=== PATIENT | female | born 1950 | race Caucasian/White ===

== ENCOUNTER → 2019-01-17 21:49 | Outpatient (CLI) | payer MEDICARE, SELFPAY ==
[2019-01-10 11:03] VITALS: BMI 36.8
[2019-01-17 22:11] LABS: Absolute Neutrophil Count 2.5 X10^3/uL (2.0-7.7); Basophil# 0.05 X10^3/uL; Basophil% 1.2 % (0-1); Eosinophil# 0.23 X10^3/uL; Eosinophils% 5.7 % (0-5); Hemoglobin 13.1 g/dl (12.0-15.0); Lymphocyte % 22.2 % (19-41); Mean Corp Hgb Conc 31.2 g/gl (32-36); Mean Corpuscular Hgb 30.6 pg (27.0-32.0); Mean Corpuscular Volume 98.1 fL (81-99); Mean Platelet Vol. 10.1 fl (6.2-12.0); Monocyte# 0.41 X10^3/uL; Monocyte% 10.1 % (0-10); Neutrophil # 2.45 X10^3/uL (2.7-7.7); Neutrophil % 60.3 % (47-70); POSITIVE COUNT NO; POSITIVE DIFFERENTIAL NO; POSITIVE MORPHOLOGY NO; Platelet Count 264 K/mm3 (150-450); RBC Distribution Width SD 46.7 fl (35.1-43.9); Red Blood Count 4.28 M/mm3 (4.2-5.4); White Blood Count 4.1 K/mm3 (4.4-11.0)
[2019-01-17 22:26] LABS: ALB/GLOB Ratio 1.2 RATIO (0.9-2.4); AST(SGOT) 21 U/L (15-37); Alanine Aminotransfer ALT/SGPT 35 U/L (13-56); Albumin, Serum 4.1 g/dL (3.2-5.0); Alkaline Phosphatase 62 U/L (45-117); Anion Gap 9 (5-15); BUN 15 mg/dL (7-18); Calcium,Total 8.7 mg/dL (8.5-10.1); Chloride 104 mmol/L (98-107); Cholesterol 142 mg/dL (200); Creatinine, Serum 1.15 mg/dL (0.55-1.02); EST Glomerular Filtration Rate 50 mL/min (>60); Est Glom Filt Rate - Afr Amer 61 mL/min (>60); Ferritin 62 ng/mL (8-252); Globulin 3.5 g/dL (2.2-4.2); Glucose 91 mg/dL (74-106); High Density Lipoprotein 67 mg/dL; Iron Binding Capacity,Total 372 ug/dL (250-450); Protein, Total 7.6 g/dL (6.4-8.2); Sodium Level 139 mmol/L (136-145); Thyroid Stim Hormone (TSH) 1.99 uIU/mL (0.358-3.74); Triglycerides 151 mg/dL; Very Low Density Lipoprotein 30 mg/dL (5-40)
[2019-01-19 20:12] LABS: Vitamin D 1,25-Dihydroxy 28.1 pg/mL (19.9-79.3)
== END ==
PROVIDERS: Referring Provider Nurse Practitioner; Visit Provider Nurse Practitioner
DX: D64.9 Anemia, unspecified (principal); E78.00 Pure hypercholesterolemia, unspecified; E03.9 Hypothyroidism, unspecified; E55.9 Vitamin D deficiency, unspecified
CPT/HCPCS: 80053; 80061; 82652; 82728; 83550; 84443; 85025

== ENCOUNTER → 2019-12-31 18:41 | Outpatient (CLI) | payer MEDICARE, SELFPAY ==
[2019-12-31 12:34] VITALS: BMI 35.4
[2019-12-31 19:05] LABS: Absolute Lymphocyte Count 1.02 X10^3/uL (0.83-4.51); Absolute Neutrophil Count 2.5 X10^3/uL (2.0-7.7); Basophil# 0.06 X10^3/uL; Basophil% 1.4 % (0-1); Eosinophil# 0.24 X10^3/uL; Eosinophils% 5.6 % (0-5); Hematocrit 37.8 % (37-47); Hemoglobin 11.9 g/dL (12.0-15.0); Lymphocyte # 1.02 X10^3/ul (4.0); Lymphocyte % 23.9 % (19-41); Mean Corp Hgb Conc 31.5 g/dL (32-36); Mean Corpuscular Hgb 29.4 pg (27.0-32.0); Mean Corpuscular Volume 93.3 fL (81-99); Mean Platelet Vol. 10.2 fl (6.2-12.0); Monocyte# 0.42 X10^3/uL; Monocyte% 9.9 % (0-10); NRBC Flagged by Analyzer 0 % (0-5); Neutrophil # 2.51 X10^3/uL (2.7-7.7); Platelet Count 284 K/mm3 (150-450); RBC Distribution Width CV 12.5 % (11.6-14.6); RBC Distribution Width SD 43.1 fl (35.1-43.9); Red Blood Count 4.05 M/mm3 (4.2-5.4); White Blood Count 4.3 K/mm3 (4.4-11.0)
[2019-12-31 19:23] LABS: AST(SGOT) 16 U/L (15-37); Alanine Aminotransfer ALT/SGPT 24 U/L (13-56); Albumin, Serum 3.8 g/dL (3.2-5.0); Alkaline Phosphatase 73 U/L (45-117); Anion Gap 2 (5-15); BUN 16 mg/dL (7-18); BUN/Creat Ratio 13.9 RATIO (10-20); Calcium,Total 8.8 mg/dL (8.5-10.1); Chloride 109 mmol/L (98-107); Cholesterol 146 mg/dL (200); Creatinine, Serum 1.15 mg/dL (0.55-1.02); EST Glomerular Filtration Rate 50 mL/min (>60); Est Glom Filt Rate - Afr Amer 61 mL/min (>60); Globulin 3.7 g/dL (2.2-4.2); Glucose 95 mg/dL (74-106); High Density Lipoprotein 70 mg/dL; Potassium 4.4 mmol/L (3.5-5.1); Protein, Total 7.5 g/dL (6.4-8.2); Sodium Level 141 mmol/L (136-145); Thyroid Stim Hormone (TSH) 1.71 uIU/mL (0.358-3.74); Triglycerides 125 mg/dL; Very Low Density Lipoprotein 25 mg/dL (5-40)
== END ==
PROVIDERS: Referring Provider Nurse Practitioner; Visit Provider Nurse Practitioner
DX: I10 Essential (primary) hypertension (principal); E03.9 Hypothyroidism, unspecified; E78.00 Pure hypercholesterolemia, unspecified
CPT/HCPCS: 80053; 80061; 84443; 85025

== ENCOUNTER → 2020-12-17 | Outpatient (CLI) | payer MEDICARE, SELFPAY ==
[2020-12-04 14:01] VITALS: BMI 37.2
[2020-12-17 22:43] LABS: Absolute Lymphocyte Count 0.96 X10^3/uL (0.83-4.51); Absolute Neutrophil Count 2.8 X10^3/uL (2.0-7.7); Basophil# 0.07 X10^3/uL; Basophil% 1.6 % (0-1); Eosinophil# 0.18 X10^3/uL; Eosinophils% 4.1 % (0-5); Hematocrit 34.5 % (37-47); Hemoglobin 10.3 g/dL (12.0-15.0); Lymphocyte # 0.96 X10^3/ul (4.0); Lymphocyte % 21.7 % (19-41); Mean Corp Hgb Conc 29.9 g/dL (32-36); Mean Corpuscular Volume 80.2 fL (81-99); Mean Platelet Vol. 9.5 fl (6.2-12.0); Monocyte# 0.39 X10^3/uL; Monocyte% 8.8 % (0-10); NRBC Flagged by Analyzer 0 % (0-5); Neutrophil % 63.3 % (47-70); POSITIVE MORPHOLOGY YES; Platelet Count 406 K/mm3 (150-450); RBC Distribution Width CV 23.4 % (11.6-14.6); RBC Distribution Width SD 63.9 fl (35.1-43.9); White Blood Count 4.4 K/mm3 (4.4-11.0)
[2020-12-17 22:53] LABS: Differential Indicated SCAN CRITERIA MET
[2020-12-17 23:05] LABS: ALB/GLOB Ratio 0.9 RATIO (0.9-2.4); AST(SGOT) 18 U/L (15-37); Alanine Aminotransfer ALT/SGPT 23 U/L (13-56); Albumin, Serum 3.4 g/dL (3.2-5.0); Alkaline Phosphatase 63 U/L (45-117); Anion Gap 6 (5-15); BUN 12 mg/dL (7-18); BUN/Creat Ratio 9.9 RATIO (10-20); Calcium,Total 8.4 mg/dL (8.5-10.1); Chloride 106 mmol/L (98-107); Creatinine, Serum 1.21 mg/dL (0.55-1.02); EST Glomerular Filtration Rate 47 mL/min (>60); Est Glom Filt Rate - Afr Amer 57 mL/min (>60); Globulin 3.6 g/dL (2.2-4.2); Glucose 98 mg/dL (74-106); Sodium Level 142 mmol/L (136-145)
[2020-12-17 23:16] LABS: Differential Comment SCANNED
== END | disposition home or self-care (01) ==
PROVIDERS: PCP Nurse Practitioner; Referring Provider Nurse Practitioner; Visit Provider Nurse Practitioner
DX: D50.0 Iron deficiency anemia secondary to blood loss (chronic) (principal); D64.9 Anemia, unspecified
CPT/HCPCS: 80053; 85025

== ENCOUNTER → 2021-01-17 | Outpatient (CLI) | payer MEDICARE, SELFPAY ==
[2021-01-17 16:40] VITALS: BMI 36.8
[2021-01-17 22:03] LABS: Absolute Lymphocyte Count 0.77 X10^3/uL (0.83-4.51); Absolute Neutrophil Count 2.6 X10^3/uL (2.0-7.7); Basophil# 0.05 X10^3/uL; Basophil% 1.3 % (0-1); Eosinophil# 0.15 X10^3/uL; Eosinophils% 3.9 % (0-5); Hematocrit 37.8 % (37-47); Hemoglobin 11.3 g/dL (12.0-15.0); Lymphocyte # 0.77 X10^3/ul (4.0); Lymphocyte % 19.8 % (19-41); Mean Corp Hgb Conc 29.9 g/dL (32-36); Mean Corpuscular Hgb 25.4 pg (27.0-32.0); Mean Corpuscular Volume 84.9 fL (81-99); Mean Platelet Vol. 9.5 fl (6.2-12.0); Monocyte% 7.7 % (0-10); NRBC Flagged by Analyzer 0 % (0-5); Neutrophil # 2.61 X10^3/uL (2.7-7.7); POSITIVE MORPHOLOGY YES; Platelet Count 321 K/mm3 (150-450); RBC Distribution Width CV 23.7 % (11.6-14.6); RBC Distribution Width SD 71.7 fl (35.1-43.9); Red Blood Count 4.45 M/mm3 (4.2-5.4); White Blood Count 3.9 K/mm3 (4.4-11.0)
[2021-01-17 22:22] LABS: Differential Indicated SCAN CRITERIA MET
[2021-01-17 22:24] LABS: ALB/GLOB Ratio 1.1 RATIO (0.9-2.4); AST(SGOT) 27 U/L (15-37); Alanine Aminotransfer ALT/SGPT 31 U/L (13-56); Albumin, Serum 3.8 g/dL (3.2-5.0); Alkaline Phosphatase 66 U/L (45-117); Anion Gap 6 (5-15); BUN 12 mg/dL (7-18); BUN/Creat Ratio 10.3 RATIO (10-20); Calcium,Total 8.2 mg/dL (8.5-10.1); Chloride 108 mmol/L (98-107); Cholesterol 148 mg/dL (200); Creatinine, Serum 1.17 mg/dL (0.55-1.02); EST Glomerular Filtration Rate 49 mL/min (>60); Est Glom Filt Rate - Afr Amer 59 mL/min (>60); Ferritin 14 ng/mL (8-252); Globulin 3.5 g/dL (2.2-4.2); Glucose 126 mg/dL (74-106); High Density Lipoprotein 64 mg/dL; Iron Binding Capacity,Total 401 ug/dL (250-450); Potassium 3.8 mmol/L (3.5-5.1); Protein, Total 7.3 g/dL (6.4-8.2); Sodium Level 143 mmol/L (136-145); Thyroid Stim Hormone (TSH) 3.11 uIU/mL (0.358-3.74); Triglycerides 381 mg/dL; Very Low Density Lipoprotein 76 mg/dL (5-40)
[2021-01-17 22:32] LABS: Anisocytosis 2+
[2021-01-19 13:16] LABS: Transferrin 300 mg/dL (192-364)
== END | disposition home or self-care (01) ==
PROVIDERS: Visit Provider Nurse Practitioner
DX: I10 Essential (primary) hypertension (principal); D64.9 Anemia, unspecified; E78.00 Pure hypercholesterolemia, unspecified; E03.9 Hypothyroidism, unspecified
CPT/HCPCS: 80053; 80061; 82728; 83550; 84443; 84466; 85025

== ENCOUNTER → 2021-04-25 | Outpatient (CLI) | payer MEDICARE, SELFPAY ==
[2021-04-25 15:11] VITALS: BMI 36.8
[2021-04-25 21:27] LABS: Absolute Lymphocyte Count 0.93 X10^3/uL (0.83-4.51); Absolute Neutrophil Count 3.1 X10^3/uL (2.0-7.7); Basophil# 0.07 X10^3/uL; Basophil% 1.4 % (0-1); Eosinophils% 4.1 % (0-5); Hematocrit 38.4 % (37-47); Hemoglobin 12.7 g/dL (12.0-15.0); Lymphocyte # 0.93 X10^3/ul (0.83-4.51); Lymphocyte % 19.1 % (19-41); Mean Corp Hgb Conc 33.1 g/dL (32-36); Mean Corpuscular Hgb 30.6 pg (27.0-32.0); Mean Corpuscular Volume 92.5 fL (81-99); Mean Platelet Vol. 9.5 fl (6.2-12.0); Monocyte# 0.52 X10^3/uL; Monocyte% 10.7 % (0-10); NRBC Flagged by Analyzer 0 % (0-5); Neutrophil # 3.13 X10^3/uL (2.7-7.7); Neutrophil % 64.5 % (47-70); Platelet Count 287 K/mm3 (150-450); RBC Distribution Width CV 13.3 % (11.6-14.6); RBC Distribution Width SD 44.9 fl (35.1-43.9); Red Blood Count 4.15 M/mm3 (4.2-5.4); White Blood Count 4.9 K/mm3 (4.4-11.0)
[2021-04-25 21:50] LABS: Cholesterol 146 mg/dL (200); High Density Lipoprotein 48 mg/dL; Thyroid Stim Hormone (TSH) 2.85 uIU/mL (0.358-3.74); Triglycerides 350 mg/dL; Very Low Density Lipoprotein 70 mg/dL (5-40)
[2021-04-25 22:11] LABS: Hemoglobin A1c 5.6 % (3.8-5.6)
== END | disposition home or self-care (01) ==
PROVIDERS: Referring Provider Nurse Practitioner; Visit Provider Nurse Practitioner
DX: E78.1 Pure hyperglyceridemia (principal); D50.0 Iron deficiency anemia secondary to blood loss (chronic); E03.9 Hypothyroidism, unspecified; R73.9 Hyperglycemia, unspecified
CPT/HCPCS: 80061; 83036; 84443; 85025

== ENCOUNTER → 2021-07-30 | Outpatient (CLI) | payer MEDICARE, SELFPAY ==
[2021-07-30 22:10] LABS: Absolute Lymphocyte Count 1.21 X10^3/uL (0.83-4.51); Absolute Neutrophil Count 4.6 X10^3/uL (2.0-7.7); Basophil# 0.05 X10^3/uL; Basophil% 0.8 % (0-1); Eosinophil# 0.12 X10^3/uL; Eosinophils% 1.8 % (0-5); Hematocrit 40.9 % (37-47); Hemoglobin 13.2 g/dL (12.0-15.0); Lymphocyte # 1.21 X10^3/ul (0.83-4.51); Lymphocyte % 18.5 % (19-41); Mean Corp Hgb Conc 32.3 g/dL (32-36); Mean Corpuscular Hgb 30.3 pg (27.0-32.0); Mean Platelet Vol. 9.7 fl (6.2-12.0); Monocyte# 0.52 X10^3/uL; NRBC Flagged by Analyzer 0 % (0-5); Neutrophil # 4.62 X10^3/uL (2.7-7.7); Neutrophil % 70.6 % (47-70); Platelet Count 316 K/mm3 (150-450); RBC Distribution Width CV 12.5 % (11.6-14.6); RBC Distribution Width SD 43.5 fl (35.1-43.9); Red Blood Count 4.35 M/mm3 (4.2-5.4); White Blood Count 6.5 K/mm3 (4.4-11.0)
[2021-07-30 22:22] LABS: Anion Gap 7 (5-15); BUN 20 mg/dL (7-18); Calcium,Total 9.1 mg/dL (8.5-10.1); Chloride 104 mmol/L (98-107); Creatinine, Serum 1.43 mg/dL (0.55-1.02); EST Glomerular Filtration Rate 39 mL/min (>60); Est Glom Filt Rate - Afr Amer 47 mL/min (>60); Glucose 102 mg/dL (74-106); Potassium 3.5 mmol/L (3.5-5.1); Sodium Level 139 mmol/L (136-145)
== END | disposition home or self-care (01) ==
PROVIDERS: Referring Provider Nurse Practitioner; Visit Provider Nurse Practitioner
DX: R59.0 Localized enlarged lymph nodes (principal); R91.8 Other nonspecific abnormal finding of lung field
CPT/HCPCS: 80048; 85025

== ENCOUNTER 2021-12-03 21:57 | Outpatient (CLI) | payer MEDICARE, SELFPAY ==
[2021-12-03 22:09] LABS: Absolute Lymphocyte Count 1.31 X10^3/uL (0.83-4.51); Absolute Neutrophil Count 4.7 X10^3/uL (2.0-7.7); Basophil# 0.07 X10^3/uL; Eosinophil# 0.23 X10^3/uL; Eosinophils% 3.3 % (0-5); Hematocrit 40.3 % (37-47); Hemoglobin 13.2 g/dL (12.0-15.0); Lymphocyte # 1.31 X10^3/ul (0.83-4.51); Lymphocyte % 18.7 % (19-41); Mean Corp Hgb Conc 32.8 g/dL (32-36); Mean Corpuscular Hgb 30.8 pg (27.0-32.0); Mean Corpuscular Volume 93.9 fL (81-99); Mean Platelet Vol. 9.2 fl (6.2-12.0); Monocyte# 0.62 X10^3/uL; Monocyte% 8.9 % (0-10); NRBC Flagged by Analyzer 0 % (0-5); Neutrophil # 4.74 X10^3/uL (2.7-7.7); Neutrophil % 67.8 % (47-70); Platelet Count 335 K/mm3 (150-450); RBC Distribution Width CV 12.6 % (11.6-14.6); Red Blood Count 4.29 M/mm3 (4.2-5.4)
[2021-12-03 22:50] LABS: ALB/GLOB Ratio 1.1 RATIO (0.9-2.4); AST(SGOT) 20 U/L (15-37); Alanine Aminotransfer ALT/SGPT 38 U/L (13-56); Albumin, Serum 3.9 g/dL (3.2-5.0); Alkaline Phosphatase 71 U/L (45-117); Anion Gap 5 (5-15); BUN 13 mg/dL (7-18); BUN/Creat Ratio 11.9 RATIO (10-20); Calcium,Total 8.7 mg/dL (8.5-10.1); Chloride 103 mmol/L (98-107); Cholesterol 159 mg/dL (200); Creatinine, Serum 1.09 mg/dL (0.55-1.02); EST Glomerular Filtration Rate 53 mL/min (>60); Est Glom Filt Rate - Afr Amer 64 mL/min (>60); Globulin 3.7 g/dL (2.2-4.2); Glucose 104 mg/dL (74-106); High Density Lipoprotein 56 mg/dL; Potassium 3.9 mmol/L (3.5-5.1); Protein, Total 7.6 g/dL (6.4-8.2); Sodium Level 139 mmol/L (136-145); Thyroid Stim Hormone (TSH) 2.29 uIU/mL (0.358-3.74); Triglycerides 164 mg/dL; Very Low Density Lipoprotein 33 mg/dL (5-40)
== END 2021-12-03 23:59 | disposition short-term general hospital (02) ==
PROVIDERS: Visit Provider Nurse Practitioner
DX: D50.9 Iron deficiency anemia, unspecified (principal); K21.00 Gastro-esophageal reflux disease with esophagitis, without bleeding; E78.00 Pure hypercholesterolemia, unspecified; E03.9 Hypothyroidism, unspecified
CPT/HCPCS: 80053; 80061; 84443; 85025

== ENCOUNTER → 2022-11-26 | Outpatient (CLI) | payer MEDICARE, SELFPAY ==
[2022-11-26 22:22] LABS: Absolute Lymphocyte Count 1.17 X10^3/uL (0.83-4.51); Absolute Neutrophil Count 2.7 X10^3/uL (2.0-7.7); Basophil# 0.06 X10^3/uL; Basophil% 1.3 % (0-1); Eosinophils% 4.3 % (0-5); Hematocrit 39.2 % (37-47); Lymphocyte # 1.17 X10^3/ul (0.83-4.51); Lymphocyte % 25.3 % (19-41); Mean Corp Hgb Conc 33.2 g/dL (32-36); Mean Corpuscular Hgb 31.2 pg (27.0-32.0); Mean Platelet Vol. 9.7 fl (6.2-12.0); Monocyte# 0.44 X10^3/uL; Monocyte% 9.5 % (0-10); NRBC Flagged by Analyzer 0.6 % (0-5); Neutrophil # 2.74 X10^3/uL (2.7-7.7); Neutrophil % 59.4 % (47-70); Platelet Count 280 K/mm3 (150-450); RBC Distribution Width CV 12.8 % (11.6-14.6); Red Blood Count 4.17 M/mm3 (4.2-5.4); White Blood Count 4.6 K/mm3 (4.4-11.0)
[2022-11-26 22:46] LABS: ALB/GLOB Ratio 1.2 RATIO (0.9-2.4); AST(SGOT) 21 U/L (15-37); Alanine Aminotransfer ALT/SGPT 40 U/L (13-56); Albumin, Serum 3.8 g/dL (3.2-5.0); Alkaline Phosphatase 65 U/L (45-117); Anion Gap 6 (5-15); BUN 14 mg/dL (7-18); BUN/Creat Ratio 13.9 RATIO (10-20); Calcium,Total 8.7 mg/dL (8.5-10.1); Chloride 108 mmol/L (98-107); Cholesterol 153 mg/dL (200); Creatinine, Serum 1.01 mg/dL (0.55-1.02); EST Glomerular Filtration Rate 58 mL/min (>60); Est Glom Filt Rate - Afr Amer 70 mL/min (>60); Globulin 3.3 g/dL (2.2-4.2); Glucose 127 mg/dL (74-106); High Density Lipoprotein 57 mg/dL; Potassium 3.9 mmol/L (3.5-5.1); Protein, Total 7.1 g/dL (6.4-8.2); Sodium Level 142 mmol/L (136-145); Thyroid Stim Hormone (TSH) 3.37 uIU/mL (0.358-3.74); Triglycerides 223 mg/dL; Very Low Density Lipoprotein 45 mg/dL (5-40)
== END | disposition home or self-care (01) ==
PROVIDERS: Referring Provider Nurse Practitioner; Visit Provider Nurse Practitioner
DX: I10 Essential (primary) hypertension (principal); D64.9 Anemia, unspecified; E78.1 Pure hyperglyceridemia; K21.9 Gastro-esophageal reflux disease without esophagitis; E03.9 Hypothyroidism, unspecified; R59.0 Localized enlarged lymph nodes
CPT/HCPCS: 80053; 80061; 84443; 85025

== ENCOUNTER → 2023-01-16 | Outpatient (CLI) | payer MEDICARE, SELFPAY ==
[2023-01-16 22:51] LABS: Thyroid Stim Hormone (TSH) 7.39 uIU/mL (0.358-3.74)
== END | disposition home or self-care (01) ==
PROVIDERS: Visit Provider Nurse Practitioner
DX: I10 Essential (primary) hypertension (principal)
CPT/HCPCS: 84443

== ENCOUNTER → 2023-04-09 | Outpatient (CLI) | payer MEDICARE, SELFPAY ==
[2023-04-09 22:01] LABS: Thyroid Stim Hormone (TSH) 4.57 uIU/mL (0.358-3.74)
== END | disposition home or self-care (01) ==
PROVIDERS: Visit Provider Nurse Practitioner
DX: E03.9 Hypothyroidism, unspecified (principal)
CPT/HCPCS: 84443

== ENCOUNTER → 2023-05-11 | Outpatient (CLI) | payer MEDICARE, SELFPAY ==
[2023-05-11 21:44] LABS: Thyroid Stim Hormone (TSH) 1.48 uIU/mL (0.358-3.74)
== END | disposition home or self-care (01) ==
PROVIDERS: Visit Provider Nurse Practitioner
DX: E03.9 Hypothyroidism, unspecified (principal)
CPT/HCPCS: 84443

== ENCOUNTER → 2023-11-23 | Outpatient (CLI) | payer MEDICARE, SELFPAY ==
--- OUTSIDE RECORDS SUMMARY | 2023-11-23 22:01 | XMS RPT_ITS | CCD ---
Author Name Unknown Address [address] [place] [address] Organization [facility] Care Team Providers Care [employer] Developer Name Role Phone Skinny Russell Primary Care Provider [phone] PROVIDER, UNKNOWN Referring Unavailable Lazarus Tang Attending Unavailable Drew, Skinny Primary Care Unavailable PROVIDER, UNKNOWN Referring Unavailable TYLOR OBANDO Attending Unavailable Drew, Skinny Primary Care Unavailable PROVIDER, UNKNOWN Referring Unavailable UNASSIGNED, UNASSIGNED Attending Unavailab le Drew Skinny Primary Care Unavailable Drew, Skinny Primary Care Unavailable PROVIDER, UNKNOWN Referring Unavailable Lazarus Tang Attending Unavailable Drew, Skinny Primary Care Unavailable PROVIDER, UNKNOWN Referring Unavailable Lazarus Tang Attending Unavailable Drew STOVE REFINISHER.ASSEMBLY LINE BRAZER, Skinny L Primary Care Provide r Laurel Mora Unavailable Skinny Russell Primary Care Provider Lazarus Banerjee MD Unavailable Lazarus Banerjee MD Unavailable LAZARUS BANERJEE Attending Unavailable LAZARUS BANERJEE Referring Unavailable DREW, SKINNY Primary Care Unavailable SKINNY RUSSELL Attending Unavailable LAZARUS BANERJEE Referring Unavailable RUSSELL, SKINNY Primary Care Unavailable LAZARUS BANERJEE Attending Unavailable DREW SKINNY Primary Care Unavailable Allergies Allergy Classification Reported Allergen(s) Allergy Type Date of Onset Reaction(s) Facility (4 sources) Penicillins Propensity to adverse reactions to drug 6 [place], [place] (4 sources) Simvastatin Drug Allergy 7 [place] (4 sources) Sulfonamides (Antibiotic) Propensity to adverse reactions to drug 6 [place] (1 source) HMG-CoA reductase inhibitor Propensity to adverse reactions to drug 8 Unknown [facility] Work Phone: (1 source) Penicillins Propensity to adverse reactions to drug 8 Unknown [facility] Work Phone: (5 sources) Sulfonamides (Antibiotic) Propensity to adverse reactions to drug 6 Unknown [facility] Work Phone: (4 sources) HMG-CoA reductase inhibitor Drug Intolerance 2 [facility] (4 sources) Penicillins Drug Intolerance 6 [facility] Medications Current Medications Medication Drug Class(es) Dates Sig (Normalized) Sig (Original) aspirin 81 mg oral tablet (2 sources) Platelet Aggregation Inhibitor, Nonsteroidal Anti-inflammatory Drug take 1 tablet by mouth once daily aspirin 81 MG tablet Take 81 mg by mouth daily 0 Active atorvastatin 10 mg oral tablet (9 sources) HMG-CoA Reductase Inhibitor Start: 08-21-2023 take 1 tablet by mouth once daily atorvastatin (Lipitor) 10 MG tablet Take 10 mg by mouth daily. 0 08/21/2023 Active Completed/Discontinued Medications Medication Drug Class(es) Dates Sig (Normalized) Sig (Original) iron,carb/vit C/vit B12/folic (IRON 100 PLUS ORAL) (1 source) iron,carb/vit C/ vit B12/folic (IRON 100 PLUS ORAL) Take by mouth. 0 Active Problems Active Problems Problem Classification Problem Date Documented Date Episodic/Chronic Abdominal hernia (2 sources) Diaphragmatic hernia without obstruction or gangrene; Translations: [Diaphragmatic hernia without obstruction or gangrene] Onset: 07-25-2022 Episodic Cancer of cervix (13 sources) Malignant tumor of cervix; Translations: [Malignant neoplasm of cervix uteri, unspecified] Onset: 01-30-2016 01-30-2016 Chronic Cancer of cervix (5 sources) History of malignant neoplasm of cervix; Translations: [Personal history of malignant neoplasm of cervix uteri] Onset: 09-09-2023 08-27-2023 Episodic Other lower respiratory disease (5 sources) Nodule of lung; Translations: [Solitary pulmonary nodule] Episodic Other lower respiratory disease (4 sources) Solitary pulmonary nodule; Translations: [Solitary pulmonary nodule] Onset: 07-25-2022 Episodic Other lower respiratory disease (2 sources) Multiple nodules of lung; Translations: [Other nonspecific abnormal finding of lung field] Onset: 11-18-2022 Episodic Other screening for suspected conditions (not mental disorders or infectious disease) (2 sources) Abnormal findings on diagnostic imaging of other specified body structures; Translations: [Abnormal findings on dx imaging of oth body structures] Onset: 09-13-2021 Chronic Residual codes; unclassified (2 sources) Personal history of irradiation; Translations: [Personal history of irradiation] Onset: 08-27-2023 Episodic Substance-related disorders (5 sources) Tobacco dependence in remission; Translations: [Nicotine dependence, cigarettes, in remission] Onset: 09-09-2023 08-27-2023 Chronic Past or Other Problems Problem Classification Problem Date Documented Da te Episodic/Chronic Blindness and vision defects (1 source) Presbyopia; Translations: [Presbyopia] Onset: 06-08-2018 06-08-2018 Episodic Deficiency and other anemia (1 source) Anemia; Translations: [Anemia, unspecified] Onset: 12-01-2020 12-03-2020 Episodic Other connective tissue disease (1 source) Muscle pain; Translations: [Myalgia, unspecified site] Onset: 12-01-2020 12-01-2020 Episodic Other diseases of kidney and ureters (1 source) Acute renal insufficiency; Translations: [Disorder of kidney and ureter, unspecified] Onset: 12-01-2020 12-01-2020 Episodic Other lower respiratory disease (1 source) Dyspnea on exertion; Translations: [Other forms of dyspnea] Onset: 12-01-2020 12-01-2020 Episodic Other screening for suspected conditions (not mental disorders or infectious disease) (7 sources) Encounter for screening mammogram for malignant neoplasm of breast; Translations: [D-dimer above reference range] Onset: 12-01-2020 Episodic Results Test Name Value Interpretation Reference Range Facil ity Vital Signs Date Time Vital Sign Value Performing Clinician Faci eliezer 08-27-2023 11:41-0400 Body height 152.4 cm Lazarus Banerjee MD Work Phone: [facility] 08-27-2023 11:41-0400 Body mass index (BMI) [Ratio] 39.65 kg/m2 Lazarus Banerjee MD Work Phone: [facility] 08-27-2023 11:41-0400 Body weight 92.08 kg Lazarus Banerjee MD Work Phone: [facility] 08-27-2023 11:41-0400 Diastolic blood pressure 84 mm[Hg] Lazarus Banerjee MD Work Phone: [facility] 08-27-2023 11:41-0400 Systolic blood pressure 138 mm[Hg] Lazarus Banerjee MD Work Phone: [facility] 05-22-2023 11:42-0400 Body height 152.4 cm Skinny Russell Work Phone: [facility] 05-22-2023 11:42-0400 Body mass index (BMI) [Ratio] 36.91 kg/m2 Skinny Russell Work Phone: [facility] 05-22-2023 11:42-0400 Body weight 85.73 kg Skinny Russell Work Phone: [facility] Encounters Encounter Date Encounter Type Care Provider Facility Start: 09-09-2023 End: 09-10-2023 ambulatory LAZARUS BANERJEE [facility] Start: 09-09-2023 End: 09-09-2023 Subsequent hospital visit by physician Lazarus Banerjee MD Work Phone: [facility] Procedures Date Procedure Procedure Detail Performing Clinician Start: 05-22-2023 End: 05-22-2023 Screening digital breast tomosynthesis bi Lazarus Banerjee MD Work Phone: Start: 04-18-2022 Screening digital br east tomosynthesis bi Lazarus Banerjee MD Work Phone: Start: 11-30-2020 Antibody screen Plan of Treatment Date Care Activity Detail Author Start: 04-07-2028 DTaP/Tdap/Td vaccine (2 - Tdap) DTaP/Tdap/Td vaccine (2 - Tdap) [facility] Start: 04-07-2028 DTaP/Tdap/Td Vaccine s (3 - Td or Tdap) DTaP/Tdap/Td Vaccines (3 - Td or Tdap) [facility] Start: 09-08-2024 End: 09-08-2024 Patient encounter procedure 09/08/2024 10:40 AM EDT Office Visit [facility] Gynecologic Oncology [address] [place] [id number] Lazarus Banerjee MD [address] [place] [address] [facility]nec[facility] Start: 05-22-2024 Screening for malignant neoplasm of breast Mammogram [facility] Start: 04-18-2024 Screening for malignant neoplasm of breast Breast cancer screen [facility] Start: 12-03-2023 DIABETES SCREEN DIABETES SCREEN [facility] Start: 09-09-2023 End: 09-09-2023 Patient encounter procedure 09/09/2023 1:00 PM EDT Appointment [facility] [facility] [address] [place] [address] Lazarus Banerjee MD [address] [place], [place] [id number] [facility] [address] Start: 08-27-2023 End: 08-27-2024 CT Chest for screening WO contrast CT lung screening low dose Imaging Routine History of cervical cancer Lung nodule Nicotine dependence, cigarettes, in remission Expected: 08/27/2023, Expires: 08/27/2024 [facility] Work Phone: Immunizations Immunization Date Immunization Notes Care Provider Fa [facility] 07-29-2022 influenza virus vaccine, unspecified formulation Skinny Russell Work Phone: [facility] 03-06-2022 Covid-19, Pfizer Gra y Top, Do Not Dilute, (Age 12 Y+), Im, L Skinny Russell Work Phone: [facility] 08-27-2021 Pfizer SARS-CoV-2 Vaccination Skinny Russell Work Phone: [facility] 02-19-2021 COVID-19 original vaccine, age 12+ yr, monovalent (PFIZER-BIONTECH - PURPLE TOP) Nohemi Martinez STOVE REFINISHER.ASSEMBLY LINE BRAZER Work Phone: [facility] 01-29-2021 COVID-19 original vaccine, age 12+ yr, monovalent (PFIZER-BIONTECH - PURPLE TOP) Nohemi Martinez APRN.ASSEMBLY LINE BRAZER Work Phone: [facility] Payers Date Payer Category Payer Medicare [id number] 2017 Medicare [facility]MEDICARE ADVANTAGE xxxxxxxxxxx 2017-Present [phone] [address] [place] [address] xxxxxxxxxxx [id number] 2017 Medicare [id number] 1950 Unknown [id number] 1950 Unknown [id number] 1950 Unknown [id number] 1950 Unknown [id number] 1950 Unknown [id number] Unknown Social History Date Type Detail Facility Start: 01-30-2016 End: 04-28-2019 Tobacco smoking status NHIS Never smoker [facility] [place] Start: 04-28-2019 End: 08-27-2023 [facility] intake [facility] Start: 10-21-2017 Alcohol Comment 1-2 a week [facility] Start: 1950 Sex Assigned At Not on file M [facility] Start: 07-19-2020 End: 05-22-2023 Tobacco use and exposure Never used [facility] Start: 07-19-2020 End: 08-27-2023 Alcohol intake Current drinker of alcohol (finding) Ary [facility] Start: 07-25-2021 End: 08-27-2023 Alcohol intake [facility] Work Phone: Start: 07-07-2022 End: 05-22-2023 Exposure to SARS-CoV-2 (event) Not sure [facility] Start: 12-01-2020 End: 05-22-2023 Tobacco smoking status NHIS Ex-smoker [facility] Work Phone: End: 11-16-1986 History of tobacco use Current smoker [facility] Work Phone: End: 11-16-1986 History of tobacco use Cigarette Smoker [facility] Work Phone: Start: 12-01-2020 Tobacco Comment quit [address] [place] [address] Start: 12-01-2020 Alcohol Comment social [facility] Clinical Notes 11-18-2022 to 08-28-2023 Telephone Encounter - Verna Kang - 08/28/2023 2:24 PM EDTTelephone Encounter - Vrena Kang - 08/28/2023 2:24 PM EDTRwarren Banerjee MD - 08/27/2023 11:40 AM EDT Note Date & Type Note Facility 08-28-2023 Telephone encounter Note Called patient to see dates/times/location work best for her for ct scan. Left message to call office. [facility] 08-28-2023 Miscellaneous Notes Called patient to see dates/times/location work best for her for ct scan. Left message to call office. documented in this encounter [facility] 08-27-2023 History of Presen t illness Narrative Chief Complaint Patient presents with Other History of cervical cancer - annual examination HISTORY OF THE PRESENT ILLNESS: Shine Min is a 72 y.o. female who presents for evaluation and management of the above. IB1 SCCA G2 cervical cancer, Radical Hyst BSO by Jose Guadalupe 03/2014; adj XRT RTOG #1203/IMRT Path - 3 cm, depth invasion 11 mm, LVS equiv (present on cone), 20 nodes (-) Finished treatment June of 2014. Denies any toxicities from the treatment other than lymphedema. She has been seen in the lymphedema clinic and wears support stockings. In January 2017 she reported new onset of vaginal bleeding and back pain. CT abdomen and pelvis IMPRESSION: 1. No evidence of recurrent malignancy. 2. Stable hepatic cysts. 3. Moderate-sized hiatal hernia. CXR [facility] in 2020- That showed a pulmonary nodule. On 08/23/21 CT of chest showed: IMPRESSION: 1. Pulmonary nodule in the inferolateral aspect of the left upper lobe has demonstrated interval increase in size compared to 2015. Based on the 202 ACR white paper on managing incidental findings on thoracic CT, consider follow-up low-dose CT of the chest at three months or PET/CT and/or tissue sampling. 2. Moderate-sized hiatal hernia. Follow-up PET on 09/16/21 Showed: IMPRESSION: Streaky noncalcified nodule within the left upper lobe noted on the prior CT of the chest demonstrates minimal FDG uptake, most consistent with a benign etiology. Routine CT follow-up is recommended to ensure stability. CT chest 07/2022: IMPRESSION: 1. Unchanged 1.1 cm nodule left upper lobe unchanged from prior CT chest. This demonstrated minimal FDG uptake on PET CT suggesting benignity. 2. No new suspicious pulmonary nodules. ASSESSMENT CATEGORY (version 1.1 - 2019): Lung-RADS Assessment Category 2 - Benign appearance or behavior. Recommend continued annual low-dose screening CT in 12 months.. Pap smear 07/2022 - NILM, HR HPV negative Interval History: The patient presents to the office today for routine surveillance of disease. Doing well since her last visit. Denies chest pain, shortness of breath. Denies abdominal pain, nausea, vomiting, changes in weight. Denies pelvic pain, vaginal bleeding, vaginal discharge. She has not been using her vaginal dilator as often. Does have some vaginal dryness. No vaginal bleeding after dilator or intercourse. Now she has 4 grandchildren! Shine does watch once of her grandsons in [place]. Retired. Doing well! Past Medical History: Diagnosis Date Acid reflux disease with ulcer Anemia Arthritis Cervical cancer (CMS/HCC) (HCC) 2013 H/O: hysterectomy Hiatal hernia HTN (hypertension) Hypothyroid Lymphedema Personal history of irradiation Past Surgical History: Procedure Laterality Date SECTION, LOW TRANSVERSE x2 DILATION AND CURETTAGE OF UTERUS 1985 OOPHORECTOMY Bilateral 2013 TONSILLECTOMY (HISTORICAL) child dutta TOTAL ABDOMINAL HYSTERECTOMY N/A 2013 robotic radical hysterectomy Social History Tobacco Use Smoking status: Former Types: Cigarettes Quit date: 11/16/1986 Years since quittin.8 Smokeless tobacco: Never Substance Use Topics Alcohol use: Yes Alcohol/week: 1.0 standard drink of alcohol Drug use: No Family History Problem Relation Name Age of Onset Lung cancer Father 61 Cervical cancer Maternal Grandmother 51 Pancreatic cancer Father's Sister 65 Lung cancer Father's Brother 65 Breast cancer Neg Hx Ovarian cancer Neg Hx Colon cancer Neg Hx Uterine cancer Neg Hx Current Outpatient Medications on File Prior to Visit Medication Sig Dispense Refill atorvastatin (Lipitor) 10 MG tablet Take 10 mg by mouth daily. ferrous fumarate-vitamin C ER (Seymour-Sequeles 65-25) Take 1 tablet by mouth in the morning and 1 tablet at noon and 1 tablet in the evening. Take with meals. Do not crush, chew, or split.. levothyroxine (Tirosint) 137 MCG capsule Take by mouth every morning (before breakfast). losartan (Cozaar) 100 MG tablet Take 100 mg by mouth daily. Multiple Vitamins-Minerals (multivitamin with minerals) tablet Take 1 tablet by mouth daily. pantoprazole (ProtoNix) 40 MG EC tablet Take 40 mg by mouth every morning (before breakfast). Do not crush, chew, or split. simvastatin (Zocor) 10 MG tablet Take 10 mg by mouth Nightly. No current facility-administered medications on file prior to visit. Allergies as of 08/27/2023 - Reviewed 08/27/2023 Allergen Reaction Noted Penicillins 01/30/2016 Statins 09/24/2022 Sulfa antibiotics 01/30/2016 REVIEW OF SYSTEMS: A 12 point review of systems was performed and is as per the history of the present illness, all other systems were reviewed and are negative. Vitals: 08/27/23 1141 BP: 138/84 Body mass index is 39.65 kg/m . Physical Exam Constitutional: Appearance: Normal appearance. Pulmonary: Effort: Pulmonary effort is normal. Abdominal: General: Abdomen is flat. Palpations: Abdomen is soft. Comments: Well-healed robotic incisions without nodules Genitourinary: General: Normal vulva. Comments: Uterus/cervix/bilateral adnexa are surgically absent. There were no adnexal masses appreciated, no vaginal cuff or cul-de-sac nodularity. No lesions visualized or palpated in the vagina. The vagina is narrowed as a result of radiation. Some mild radiation changes are noted involving the mucosa. No active bleeding. Musculoskeletal: General: Normal range of motion. Lymphadenopathy: Cervical: Right cervical: No superficial cervical adenopathy. Left cervical: No superficial cervical adenopathy. Upper Body: Right upper body: No supraclavicular adenopathy. Left upper body: No supraclavicular adenopathy. Skin: General: Skin is warm and dry. Neurological: General: No focal deficit present. Mental Status: She is alert and oriented to person, place, and time. ASSESSMENT/PLAN: Diagnosis Plan 1. History of cervical cancer CT lung screening low dose Pap Smear 2. S/P radiation therapy Pap Smear 3. Lung nodule CT lung screening low dose 4. Nicotine dependence, cigarettes, in remission CT lung screening low dose Shine Min is a 72 y.o. 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 Currently, doing well, without evidence of recurrent disease. ECOG performance status of 0. Pap smear obtained, follow up on results and treat as indicated. The signs and symptoms of recurrence were reviewed and the patient will contact our office in the interim should any of these arise. Follow up in 1 year for annual exam. Pulmonary nodule-repeat low-dose CT scan of the chest was recommended by radiology. Patient is due for that imaging. Disclaimer: This note was dictated by speech recognition. I apologize for minor errors in grocery sacker which may be present. documented in this encounter [facility] 11-18-2022 Note Patient Outreach (PU LMWH) SHINE MIN ([id number]) 1950 F Date Time Provider Department 11/18/22 NOHEMI MARTINEZ During your visit today, we recorded the following information about you: Nohemi Martinez APRN.ASSEMBLY LINE BRAZER 11/18/2022 11:13 AM Signed Incidental Lung Nodule Enrollment Call attempt: 1st Attempt Enrolled in Lung Nodule program: No Declined reason: Patient already followed by another non-[facility] provider for incidental lung nodule(s). Lung Nodule Program Location: [facility]. Nohemi Martinez NP Allergies As of Date: 11/18/2022 Noted Allergy Reaction PENICILLINS 06/08/2018 16 - Unknown [id number] REDUCTASE INHIBIT*06/08/2018 16 - Unknown SULFA (SULFONAMIDE ANTIBIOTICS) 06/08/2018 16 - Unknown Date Reviewed: 12/03/2020 Reviewed by: Lissette (Rn) CAMERON Bates - Fully Assessed Primary Visit Diagnosis:Lung nodules [R91.8] Prescriptions as of 11/18/2022 - pantoprazole DR (PROTONIX) 40 mg tablet Take 1 tablet by mouth DAILY (6 AM). - levothyroxine sodium (LEVOTHYROXINE ORAL) Take by mouth. - lisinopril-hydrochlorothiazide (PRINZIDE,ZESTORETIC) 20-12.5 mg per tablet Take 1 tablet by mouth once daily. - ezetimibe (ZETIA ORAL) Take by mouth. - atorvastatin calcium (ATORVASTATIN ORAL) Take by mouth. - iron,carb/vit C/vit B12/folic (IRON 100 PLUS ORAL) Take by mouth. - niacin ER (NIASPAN) 500 mg tablet Take 500 mg by mouth twice daily with meals. Problem List As Of Date 11/18/2022 Noted Resolved Presbyopia [H52.4] 06/08/2018 Symptomatic anemia [D64.9] 12/01/2020 Acute renal insufficiency [N28.9] 12/01/2020 Myalgias [M79.10] 12/01/2020 Exertional dyspnea [R06.09] 12/01/2020 Elevated d-dimer [R79.89] 12/01/2020 Lung nodules [R91.8] 11/18/2022 Encounter Status:Closed by NOHEMI MARTINEZ on 11/18/22 [facility] 11-18-2022 Note HNO ID: [id number] Author: Nohemi Martinez APRN.[employer]SEM[employer] Service: ? Author Type: Nurse Practitioner Type: Progress Notes Filed: 11/18/2022 11:13 AM Note Text: Incidental Lung Nodule Enrollment Call attempt: 1st Attempt Enrolled in Lung Nodule program: No Declined reason: Patient already followed by another non-[facility] provider for incidental lung nodule(s). Lung Nodule Program Location: [facility]. Nohemi Martinez NP [facility] 11-18-2022 History of Presen t illness Narrative Incidental Lung Nodule Enrollment Call attempt: 1st Attempt Enrolled in Lung Nodule program: No Declined reason: Patient already followed by another non-[facility] provider for incidental lung nodule(s). Lung Nodule Program Location: [facility]. Nohemi Martinez NP documented in this encounter [facility] documented in this encounter [facility] Work Phone: Evaluation note* Diagnosis Lung nodules- Primary Other nonspecific abnormal finding of lung field [facility] Diagnosis Encounter for screening mammogram for malignant neoplasm of breast [facility] Diagnosis Encounter for screening mammogram for malignant neoplasm of breast- Primary Encounter for screening mammogram for malignant neoplasm of breast [facility] Diagnosis History of cervical cancer- Primary Personal history of malignant neoplasm of cervix uteri S/P radiation therapy Convalescence following radiotherapy Lung nodule Other diseases of lung, not elsewhere classified Nicotine dependence, cigarettes, in remission [facility] History of cervical cancer Personal history of malignant neoplasm of cervix uteri Lung nodule Other diseases of lung, not elsewhere classified Nicotine dependence, cigarettes, in remission documented in this encounter [facility] Summary Purpose Family History No Family History Records FoundNo Family History Records FoundNo Family History Records FoundNo Family History Records FoundNo Family History Records Found Advance Directives No Advanced Directives Records FoundDocuments on File Type Date Recorded Patient Line Up Machine Operator Expl anation Advance Directives and Living Will Power of [employer] French Teacher Documents on File Type Date Recorded Patient Line Up Machine Operator Expl anation ACP-Advance Directive ACP-Power of [employer] School French Teacher Documents on File Type Date Recorded Patient Line Up Machine Operator Expl anation Advance Directives and Livin g Will 05/22/2023 11:32 AM Documents on File Type Date Recorded Patient Line Up Machine Operator Expl anation Advance Directives and Livin g Will 05/22/2023 11:32 AM Hospital Course Note HNO ID: [id number] Author: Nemesio Crum V Service: General Internal Medicine Author Type: Physician Type: Discharge Summary Filed: 12/03/2020 9:52 PM Note Text: DISCHARGE SUMMARY PATIENT NAME: Shine Min Admission Information Admission Information ADMIT DATE: 11/30/2020 DISCHARGE DATE: 12/03/2020 MY DOCTORS AND MEDICAL TEAM: [facility] Doctor: Bebeto Crum Primary Care Provider: Skinny Russell NP My Medical Team Members: Treatment Team: Attending Provider: Bebeto Crum Consulting: Sebastian Matos MY CONDITION AT DISCHARGE: Stable REASON I WAS IN THE HOSPITAL: Normal patient of RENÉE Russell. She has history of cervical cancer and has been getting annual blood work. For last 2 weeks, she was having some pain in her right shoulder as well as right upper back. She started taking oral ibuprofen up to 4 times a day. She is also on daily aspirin. She came to the emergency room on 11/29/2019 due to concern about her worsening pain. She also reporting soumya (more content not included)... Note HNO ID: [id number] Author: Maria A Matos Service: ? Author Type: Physician Type: Brief Op Note Filed: 12/03/2020 10:14 AM Note Text: BRIEF OPERATIVE / PROCEDURE NOTE LOG ID: [id number] SURGERY/PROCEDURE DATE: 12/03/2020 INCISION/PROCEDURE START TIME: 9:57 AM INCISION CLOSE/PROCEDURE END TIME: 10:07 AM SURGEON(S)/PROCEDURALIST(S) AND [employer] MACHINE OPERATOR(S): Surgeon(s) and Role: * Sebastian Marsh No Additional Staff SURGERY/PROCEDURE(S): egd w bx ANESTHESIA: Monitored Anesthesia Care FINDINGS: duodenitis/gastritis/hiatal hernia/Krishan's Erosions/ nodular base on tongue with erythema ESTIMATED BLOOD LOSS: 3 mls SPECIMENS: duo/gas/eso COMPLICATIONS: 3 teeth were dislodged at completion of the endoscopy; however no traumatic encounters with the scope during the procedure. PRE-OP/PRE-PROCEDURE DIAGNOSIS: anemia POST-OP/POST-PROCEDURE DIAGNOSIS: as above SIGNATURE: Sebastian Matos MD PATIENT NAME: Shine Min DATE: December 03, 2020 TIME: 10:09 AM PAGER/CONTACT #: [phone] Procedure Findings Note HNO ID: [id number] Author: Maria A Matos Service: ? Author Type: Physician Type: Brief Op Note Filed: 12/03/2020 10:14 AM Note Text: BRIEF OPERATIVE / PROCEDURE NOTE LOG ID: [id number] SURGERY/PROCEDURE DATE: 12/03/2020 INCISION/PROCEDURE START TIME: 9:57 AM INCISION CLOSE/PROCEDURE END TIME: 10:07 AM SURGEON(S)/PROCEDURALIST(S) AND CORN HUSKER MACHINE OPERATOR(S): Surgeon(s) and Role: * Sebastian Marsh No Additional Staff SURGERY/PROCEDURE(S): egd w bx ANESTHESIA: Monitored Anesthesia Care FINDINGS: duodenitis/gastritis/hiatal hernia/Krishan's Erosions/ nodular base on tongue with erythema ESTIMATED BLOOD LOSS: 3 mls SPECIMENS: duo/gas/eso COMPLICATIONS: 3 teeth were dislodged at completion of the endoscopy; however no traumatic encounters with the scope during the procedure. PRE-OP/PRE-PROCEDURE DIAGNOSIS: anemia POST-OP/POST-PROCEDURE DIAGNOSIS: as above SIGNATURE: Sebastian Matos MD PATIENT NAME: Shine Min DATE: December 03, 2020 TIME: 10:09 AM PAGER/CONTACT #: [phone] Reason for Referral Specialty Diagnoses / Procedures Referred By Contac t Referred To Contact Radiology Diagnoses Nodule of lower lobe of left lung Pulmonary nodule 1 cm or greater in diameter Malignant neoplasm of overlapping sites of cervix (HCC) Procedures CT CHEST LOW DOSE (LDCT) Malissa Mendoza APRN - [employer] [address] [facility] [address] [place] [address] Referral ID Status Reason Start Date Expiration Date V isits Requested Visits Authorized [id number] Authorized 07/18/2022 07/18/2023 1 1 Specialty Diagnoses / Procedures Referred By Contac t Referred To Contact Radiology Diagnoses History of cervical cancer Lung nodule Nicotine dependence, cigarettes, in remission Procedures CT lung screening low dose Lazarus Banerjee MD [address] [facility] [address] [place] [address] Referral ID Status Reason Start Date Expiration Date V isits Requested Visits Authorized [id number] Pending Review 08/27/2023 02/23/2024 1 1 Referral ID Status Reason Start Date Expiration Date Visits Re quested Visits Authorized [id number] Closed 08/27/2023 02/23/2024 1 1 Additional Source Comments INFORMATION SOURCE (unrecogn ized section and content) DATE CREATED AUTHOR AUTHOR'S ORGANIZ ATION 02/23/2021 [facility] DATE CREATED AUTHOR AUTHOR'S ORGANIZ ATION 07/28/2022 [facility] DATE CREATED AUTHOR AUTHOR'S ORGANIZ ATION 11/18/2022 [facility] DATE CREATED AUTHOR AUTHOR'S ORGANIZ ATION 09/11/2023 [facility] Care Teams (unrecognized sec tion and content) [employer] Developer Relationship Specialty Start Date End Date Skinny Russell [address] [place] [address] PCP - General 05/23/15 [employer] Developer Relationship Specialty Start Date End Date Skinny Russell APRN.[employer] [address] [facility] [address] [place] [address] PCP - General Family Medicine 06/08/18 Laurel Mora [address] [place] [address] Internal Medicine 06/08/18 [employer] Developer Relationship Specialty Start Date End Date Skinny Russell [address] [place] [place], [place] [id number] PCP - General 05/23/15 Lazarus Banerjee MD [address] [facility] [address] [place], [place] [id number] Consulting Physician Gynecologic Oncology 04/20/23 [employer] Developer Relationship Specialty Start Date End Date Skinny Russell [address] [place] [address] PCP - General 05/23/15 Lazarus Banerjee MD [address] [facility], [address] [place], [place] [id number] Consulting Physician Gynecologic Oncology 04/20/23 [employer] Developer Relationship Specialty Start Date End Date Skinny Russell [address] [place] [address] PCP - General 05/23/15 Lazarus Banerjee MD [address] [facility] [address] [place] [address] Consulting Physician Gynecologic Oncology 04/20/23 [employer] Developer Relationship Specialty Start Date End Date Skinny Russell [address] [place] [address] PCP - General 05/23/15 Lazarus Banerjee MD [address] [facility] [address] [place], [place] [id number] Consulting Physician Gynecologic Oncology 04/20/23 [employer] Developer Relationship Specialty Start Date End Date Skinny Russell [address] [place] [address] PCP - General 05/23/15 Lazarus Banerjee MD [address] [facility] [address] [place], [place] [id number] Consulting Physician Gynecologic Oncology 04/20/23 Source Comments (unrecognize d section and content) In the event this informatio n is protected by the Federal Confidentiality of Alcohol and Drug Abuse Patient Records regulations: The Federal rules restrict any use of the information to criminally investigate or prosecute any alcohol or drug abuse patient.[facility] Reason for Visit (unrecogniz ed section and content) Specialty Diagnoses / Procedures Referred By Contsocrates t Referred To Contact Radiology Diagnoses History of cervical cancer Lung nodule Nicotine dependence, cigarettes, in remission Procedures CT lung screening low dose Lazarus Banerjee MD [address] [facility] [address] [place] [address] Referral ID Status Reason Start Date Expiration Date Visits Re quested Visits Authorized [id number] Closed 08/27/2023 02/23/2024 1 1 FOR RECORDS PERTAINING TO PATIENTS WHO ARE OR HAVE BEEN ENROLLED IN A CHEMICAL DEPENDENCY/SUBSTANCEABUSE PROGRAM, SOME INFORMATION MAY BE OMITTED. This clinical summary was aggregated from multiple sources. Caution should be exercised in using it in the provision of clinical care. This summary normalizes information from multiple sources, and as a consequence, information in this document may materially change the coding, format and clinical context of patient data. In addition, data may be omitted in some cases. CLINICAL DECISIONS SHOULD BE BASED ON THE PRIMARY CLINICAL RECORDS. [facility] [employer] provides no warranty or guarantee of the accuracy or completeness of information in this document.
[2023-11-23 22:06] LABS: Absolute Lymphocyte Count 1.22 X10^3/uL (0.83-4.51); Basophil# 0.05 X10^3/uL; Eosinophil# 0.19 X10^3/uL; Eosinophils% 3.9 % (0-5); Hematocrit 39.9 % (37-47); Hemoglobin 12.9 g/dL (12.0-15.0); Lymphocyte # 1.22 X10^3/ul (0.83-4.51); Mean Corp Hgb Conc 32.3 g/dL (32-36); Mean Corpuscular Hgb 30.6 pg (27.0-32.0); Mean Corpuscular Volume 94.5 fL (81-99); Mean Platelet Vol. 9.5 fl (6.2-12.0); Monocyte# 0.39 X10^3/uL; NRBC Flagged by Analyzer 0 % (0-5); Neutrophil # 3.01 X10^3/uL (2.7-7.7); Neutrophil % 61.7 % (47-70); Platelet Count 284 K/mm3 (150-450); RBC Distribution Width CV 12.8 % (11.6-14.6); RBC Distribution Width SD 43.9 fl (35.1-43.9); Red Blood Count 4.22 M/mm3 (4.2-5.4); White Blood Count 4.9 K/mm3 (4.4-11.0)
[2023-11-23 22:39] LABS: Hemoglobin A1c 5.4 % (3.8-5.6)
[2023-11-23 22:43] LABS: ALB/GLOB Ratio 1.1 RATIO (0.9-2.4); AST(SGOT) 24 U/L (15-37); Alanine Aminotransfer ALT/SGPT 37 U/L (13-56); Albumin, Serum 3.8 g/dL (3.2-5.0); Alkaline Phosphatase 70 U/L (45-117); Anion Gap 5 (5-15); BUN 14 mg/dL (7-18); BUN/Creat Ratio 12.3 RATIO (10-20); Calcium,Total 8.4 mg/dL (8.5-10.1); Chloride 111 mmol/L (98-107); Cholesterol 150 mg/dL (200); Creatinine, Serum 1.14 mg/dL (0.55-1.02); EST Glomerular Filtration Rate 50 mL/min (>60); Est Glom Filt Rate - Afr Amer 60 mL/min (>60); Globulin 3.4 g/dL (2.2-4.2); Glucose 127 mg/dL (74-106); High Density Lipoprotein 56 mg/dL; Protein, Total 7.2 g/dL (6.4-8.2); Sodium Level 143 mmol/L (136-145); Thyroid Stim Hormone (TSH) 2.79 uIU/mL (0.358-3.74); Triglycerides 262 mg/dL; Very Low Density Lipoprotein 52 mg/dL (5-40)
== END | disposition home or self-care (01) ==
PROVIDERS: Visit Provider Nurse Practitioner
DX: I10 Essential (primary) hypertension (principal); D64.9 Anemia, unspecified; K21.9 Gastro-esophageal reflux disease without esophagitis; E03.9 Hypothyroidism, unspecified; E78.00 Pure hypercholesterolemia, unspecified; R73.9 Hyperglycemia, unspecified
CPT/HCPCS: 80053; 80061; 83036; 84443; 85025

== ENCOUNTER → 2024-10-31 | Outpatient (CLI) | payer MEDICARE, SELFPAY ==
[2024-10-31 22:54] LABS: Absolute Lymphocyte Count 1.15 X10^3/uL (0.83-4.51); Absolute Neutrophil Count 3.6 X10^3/uL (2.0-7.7); Basophil# 0.05 X10^3/uL; Basophil% 0.9 % (0-1); Eosinophil# 0.23 X10^3/uL; Eosinophils% 4.1 % (0-5); Hematocrit 40.6 % (37-47); Hemoglobin 12.8 g/dL (12.0-15.0); Lymphocyte # 1.15 X10^3/ul (0.83-4.51); Lymphocyte % 20.6 % (19-41); Mean Corp Hgb Conc 31.5 g/dL (32-36); Mean Corpuscular Hgb 30.3 pg (27.0-32.0); Mean Corpuscular Volume 96.2 fL (81-99); Monocyte# 0.52 X10^3/uL; Monocyte% 9.3 % (0-10); NRBC Flagged by Analyzer 0 % (0-5); Neutrophil # 3.61 X10^3/uL (2.7-7.7); Neutrophil % 64.7 % (47-70); Platelet Count 291 K/mm3 (150-450); RBC Distribution Width CV 12.6 % (11.6-14.6); Red Blood Count 4.22 M/mm3 (4.2-5.4); White Blood Count 5.6 K/mm3 (4.4-11.0)
[2024-10-31 23:16] LABS: ALB/GLOB Ratio 1.1 RATIO (0.9-2.4); AST(SGOT) 23 U/L (15-37); Alanine Aminotransfer ALT/SGPT 32 U/L (13-56); Albumin, Serum 3.9 g/dL (3.2-5.0); Alkaline Phosphatase 67 U/L (45-117); Anion Gap 4 (5-15); BUN 13 mg/dL (7-18); BUN/Creat Ratio 12.3 RATIO (10-20); Calcium,Total 9.3 mg/dL (8.5-10.1); Chloride 108 mmol/L (98-107); Cholesterol 153 mg/dL (200); Creatinine, Serum 1.06 mg/dL (0.55-1.02); EST Glomerular Filtration Rate 54 mL/min (>60); Est Glom Filt Rate - Afr Amer 66 mL/min (>60); Globulin 3.6 g/dL (2.2-4.2); Glucose 104 mg/dL (74-106); High Density Lipoprotein 73 mg/dL; Potassium 4.5 mmol/L (3.5-5.1); Protein, Total 7.5 g/dL (6.4-8.2); Sodium Level 141 mmol/L (136-145); Triglycerides 117 mg/dL; Very Low Density Lipoprotein 23 mg/dL (5-40)
== END | disposition home or self-care (01) ==
PROVIDERS: PCP Nurse Practitioner; Referring Provider Nurse Practitioner; Visit Provider Nurse Practitioner
DX: I10 Essential (primary) hypertension (principal); E78.00 Pure hypercholesterolemia, unspecified; E78.1 Pure hyperglyceridemia; D50.9 Iron deficiency anemia, unspecified; E03.9 Hypothyroidism, unspecified
CPT/HCPCS: 80053; 80061; 84443; 85025

== ENCOUNTER → 2025-03-28 | Outpatient (CLI) | payer MEDICARE, SELFPAY ==
[2025-03-28 23:06] LABS: Thyroid Stim Hormone (TSH) 0.756 uIU/mL (0.300-4.200)
== END | disposition home or self-care (01) ==
PROVIDERS: PCP Nurse Practitioner; Referring Provider Nurse Practitioner; Visit Provider Nurse Practitioner
DX: E03.9 Hypothyroidism, unspecified (principal)
CPT/HCPCS: 84443

== ENCOUNTER → 2025-10-04 | Outpatient (CLI) | payer MEDICARE, SELFPAY ==
--- OUTSIDE RECORDS SUMMARY | 2025-10-04 21:21 | XMS RPT_ITS | CCD ---
Author Organization [facility] Care Team Providers Care Nailer Hand Name Role Phone Skinny London Primary Care Provider PROVIDER, UNKNOWN Referring Unavailable Tyler Tang Attending Unavailable Surya, Skinny Primary Care Unavailable PROVIDER, UNKNOWN Referring Unavailable TYLOR OBANDO Attending Unavailable London, Skinny Primary Care Unavailable PROVIDER, UNKNOWN Referring Unavailable UNASSIGNED, UNASSIGNED Attending Unavailab le Surya, Skinny Primary Care Unavailable London, Skinny Primary Care Unavailable PROVIDER, UNKNOWN Referring Unavailable Tyler Tang Attending Unavailable Surya, Skinny Primary Care Unavailable PROVIDER, UNKNOWN Referring Unavailable Tyler Tang Attending Unavailable Surya VENEER MARKER[employer], Skinny L Primary Care Provide r Laurel Mora Unavailable Surya Skinny Primary Care Provider Tyler Banerjee MD Unavailable Tyler Banerjee MD Unavailable Surya VENEER MARKER[employer], Skinny L Primary Care Provide r Abbe US - Fariha CHINCHILLA Unavailable Surya CONFIGURATOR-C, Skinny Primary Care Provider Surya CONFIGURATOR-C, Skinny Attending Provider Surya CONFIGURATOR-C, Skinny Referring Provider London, Skinny Primary Care Provider Fariha Patrick APRN, CNP Unavailable TYLER BANERJEE Attending Unavailable TYLER BANERJEE Referring Unavailable SURYA, SKINNY Primary Care Unavailable FARIHA ANDERS Attending Unavailable SKINNY LONDON Primary Care Unavailable Surya CONFIGURATOR, Skinny Referring Unavailable Surya CONFIGURATOR, Skinny Primary Care Unavailable Surya CONFIGURATOR, Skinny Attending Unavailable Surya CONFIGURATOR, Skinny Referring Unavailable Surya CONFIGURATOR, Skinny Primary Care Unavailable Surya CONFIGURATOR, Skinny Attending Unavailable Allergies Allergy Classification Reported Allergen(s) Allergy Type Date of Onset Reaction(s) Facility (4 sources) Penicillins Propensity to adverse reactions to drug 01-30-20 16 [place], [place] (8 sources) Simvastatin Drug Allergy 01-24-20 17 rhabdomycin [place] (4 sources) Sulfonamides (Antibiotic) Propensity to adverse reactions to drug 01-30-20 16 [place] (2 sources) HMG-CoA reductase inhibitor Propensity to adverse reactions to drug 06-08-20 18 Unknown [facility] Work Phone: (2 sources) Penicillins Propensity to adverse reactions to drug 06-08-20 18 Unknown [facility] Work Phone: (19 sources) Sulfonamides (Antibiotic) Propensity to adverse reactions to drug 01-30-20 16 Unknown [facility] Work Phone: (13 sources) Ciprofloxacin Drug Allergy 10-27-20 18 joint pains (4 sources) Penicillins Propensity to adverse reactions 04-07-20 18 Unknown (4 sources) Sulfonamides (Antibiotic) Allergy to substance 04-07-20 18 congestion watery eyes (4 sources) Mpkjcnn-Xrf-Izz Reductase Inhibitor Propensity to adverse reactions 09-24-20 22 RHABDOMYOLYSIS (17 sources) HMG-CoA reductase inhibitor Drug Intolerance 09-24-20 22 [facility] (17 sources) Penicillins Drug Intolerance 01-30-20 16 [facility] (1 source) Cefuroxime Drug Allergy 03-28-20 25 diarrhea and vomit (1 source) Cefuroxime Drug Allergy 03-28-20 25 Repository (1 source) Ciprofloxacin Drug Allergy 10-27-20 18 Repository (1 source) Penicillins Drug allergy (disorder) 04-07-20 18 Repository (1 source) Simvastatin Drug Allergy 10-25-20 18 Repository (1 source) Sulfonamides (Antibiotic) Drug allergy (disorder) 04-07-20 Repository (1 source) Jixgdqi-Gfd-Jms Reductase Inhibitor Drug allergy (disorder) 09-24-20 Repository Medications Current Medications Medication Drug Class(es) Dates Sig (Normalized) Sig (Original) atorvastatin 10 mg oral tablet (20 sources) HMG-CoA Reductase Inhibitor Start: 01-30-2018 End: 10-31-2024 take 1 tablet by mouth once daily atorvastatin (Lipitor) 10 MG tablet Take 10 mg by mouth daily. 08/21/2023 Active atorvastatin kai cium (ATORVASTATIN ORAL) Take by mouth. 0 Active Comment on above: Take by mouth. ezetimibe 10 mg oral tablet (20 sources) Dietary Cholesterol Absorption Inhibitor Start: 01-27-2018 End: 10-31-2024 take 1 tablet by mouth once daily ezetimibe (Zetia) 10 MG tablet Take 10 mg by mouth daily. 08/15/2024 Active ezetimibe (ZETIA ORAL) Take by mouth. 0 Active Comment on above: Take by mouth. ferrous fumarate-vitamin C E R (Seymour-Sequeles 65-25) (17 sources) ferrous fumarate -vitamin C ER (Seymour-Sequeles 65-25) Take 1 tablet by mouth in the morning and 1 tablet at noon and 1 tablet in the evening. Take with meals. Do not crush, chew, or split.. Active ferrous fumarate -vitamin C ER (Seymour-Sequeles 65-25) Take 1 tablet by mouth in the morning and 1 tablet at noon and 1 tablet in the evening. Take with meals. Do not crush, chew, or split.. 0 Active ferrous sulfate 325 mg oral tablet (20 sources) Start: 04-07-2018 End: 10-31-2024 take 1 tablet by mouth twice daily as needed Ferrous Sulfate (Seymour-Time) 325 mg (65 mg iron) tablet Active 325 mg PO TWICE A DAY as needed for iron def anemia October 31, 2024 8:16pm take 1 tablet by yuliana th once daily at breakfast ferrous sulfate 325 (65 Fe) MG tablet Ta ke 325 mg by mouth daily (with breakfast). Active inositol 100 mg / niacin 400 mg oral capsule (8 sources) Nicotinic Acid Start: 12-03-2021 Niacin (Inosit ol Niacinate) (Niacin No Flush) 400 mg niacin (500 mg) capsule Active NMA PO TWICE A DAY December 03, 2021 8:04pm Start: 10-25-2018 End: 12-03-2021 Niacin (Inositol Niacinate) (Niacin No Flush) 400 mg niacin (500 mg) capsule Discontinued NMA PO October 25, 2018 1:00am December 03, 2021 8:04pm iron,carb/vit C/vit B12/folic (IRON 100 PLUS ORAL) (2 sources) iron,carb/vit C/ vit B12/folic (IRON 100 PLUS ORAL) Take by mouth. 0 Active Comment on above: Take by mouth. losartan potassium 100 mg oral tablet (20 sources) Angiotensin 2 Receptor Verenice Start: 01-06-20 22 End: 10-31-20 24 take 1 tablet by mouth once daily losartan (Cozaar) 100 MG tablet Take 100 mg by mouth daily. 08/21/2023 Active Multiple Vitamins-Minerals (multivitamin with minerals) tablet (17 sources) take 1 tablet by mouth once daily Multiple Vitamins-Minerals (multivitamin with minerals) tablet Take 1 tablet by mouth daily. Active take 1 tablet by mouth once aristides y Multiple Vitamins-Minerals (multivitamin with minerals) tablet Take 1 tablet by mouth daily. 0 Active niacin 500 mg extended release oral tablet (15 sources) Nicotinic Acid take 2 tablets by mouth once daily niacin (Slo-Niacin) 500 MG ER tablet Take 1,000 mg by mouth Nightly. Active take 1 tablet by yuliana th twice daily at mealtime niacin ER (NIASPAN) 500 mg tablet Take 5 00 mg by mouth twice daily with meals. 0 Active Comment on above: Take 500 mg by mouth twice daily with meals. pantoprazole 40 mg delayed release oral tablet (20 sources) Proton Pump Inhibitor Start: 1 End: 4 take 1 tablet by mouth once daily Pantoprazole 40 mg tablet,delayed release (DR/EC) Active 40 mg PO DAILY October 31, 2024 8:16pm Comment on above: Take 1 tablet by yuliana th DAILY (6 AM). simvastatin 10 mg oral tablet (17 sources) HMG-CoA Reductase Inhibitor take 1 tablet by mouth once daily simvastatin (Zocor) 10 MG tablet Take 10 mg by mouth Nightly. Active Completed/Discontinued Medications Medication Drug Class(es) Dates Sig (Normalized) Sig (Original) aspirin 81 mg delayed release oral tablet (6 sources) Platelet Aggregation Inhibitor, Nonsteroidal Anti-inflammatory Drug Start: 04-07-2018 End: 12-04-2020 Aspirin (Adult Low Dose Aspirin) 81 mg tablet,delayed release (DR/EC) Discontinued 81 mg PO daily April 07, 2018 12:00am December 04, 2020 3:33pm take 1 tablet by mouth once aristides y aspirin 81 MG tablet Take 81 mg by mouth daily 0 Active azithromycin 250 mg oral tablet (12 sources) Macrolide Antimicrobial Start: 03-28-2025 End: 04-02-2025 take 2 tablets by mouth once daily, then take 1 tablet by mouth once daily at mealtime Azithromycin 250 mg tablet Discontinued 0 PO daily 04 20March 28, 2025 12:00am April 01, 2025 12:00am April 02, 2025 12:08am orally daily; 2 po qd for 1 day then 1 po qd for 4 days with food or after eating Start: 04-09-2023 End: 04-14-2023 take 2 tablets by mouth once daily, then take 1 tablet by mouth once daily at mealtime Azithromycin 250 mg tablet Discontinued 250 mg PO daily 04 20April 09, 2023 12:00am April 13, 2023 12:00am April 14, 2023 12:04am 2 po qd for 1 day then 1 po qd for 4 days with food or after eating Start: 09-08-2022 End: 09-13-2022 take 2 tablets by mouth once daily, then take 1 tablet by mouth once daily at mealtime Azithromycin 250 mg tablet Discontinued 250 mg PO daily 6 September 08, 2022 8:00pm September 12, 2022 12:00am September 13, 2022 12:10am 2 po qd for 1 day then 1 po qd for 4 days with food or after eating Start: 12-04-2021 End: 12-09-2021 take 2 tablets by mouth once daily, then take 1 tablet by mouth once daily at mealtime Azithromycin 250 mg tablet Discontinued 250 mg PO daily 6 December 04, 2021 1:00am December 08, 2021 1:00am December 09, 2021 1:01am 2 po qd for 1 day then 1 po qd for 4 days with food or after eating cefuroxime 500 mg oral tablet (6 sources) Cephalosporin Antibacterial Start: 08-03-2023 End: 08-21-2023 take 1 tablet by mouth twice daily Cefuroxime Axetil 500 mg tablet Discontinued 500 mg PO TWICE A DAY August 03, 2023 12:00am August 21, 2023 5:40pm Start: 12-03-2021 End: 12-04-2021 take 1 tablet by mouth twice daily Cefuroxime Axetil 500 mg tablet Discontinued 500 mg PO TWICE A DAY December 03, 2021 1:00am December 04, 2021 8:28pm cephalexin 500 mg oral capsule (4 sources) Cephalosporin Antibacterial Start: 10-27-2018 End: 11-06-2018 take 1 capsule by mouth twice daily Cephalexin 500 mg capsule Discontinued 500 mg PO TWICE A DAY 04 09October 27, 2018 1:00am November 05, 2018 1:00am November 06, 2018 1:12am ciprofloxacin 500 mg oral tablet (4 sources) Quinolone Antimicrobial Start: 10-25-2018 End: 10-27-2018 take 1 tablet by mouth twice daily Ciprofloxacin Hcl (Cipro) 500 mg tablet Discontinued 500 mg PO TWICE A DAY October 25, 2018 1:00am October 27, 2018 6:44pm clindamycin 300 mg oral capsule (8 sources) Lincosamide Antibacterial Start: 12-04-2020 End: 12-14-2020 take 1 capsule by mouth three times daily Clindamycin Hcl 300 mg capsule Discontinued 300 mg PO THREE TIMES A DAY 30 December 04, 2020 3:31pm December 13, 2020 1:00am December 14, 2020 1:03am Start: 04-07-2018 End: 04-12-2018 take 1 capsule by mouth three times daily Clindamycin Hcl 300 mg capsule Discontinued 300 mg PO THREE TIMES A DAY 15 April 07, 2018 12:00am April 11, 2018 12:00am April 12, 2018 12:07am doxycycline hyclate 100 mg oral tablet (2 sources) Tetracycline-class Drug Start: 08-21-2023 End: 11-23-2023 take 1 tablet by mouth once daily Doxycycline Hyclate 100 mg tablet Discontinued 100 mg PO DAILY August 21, 2023 12:00am November 23, 2023 9:57pm hydroCHLOROthiazide 12.5 mg / lisinopril 20 mg oral tablet (20 sources) Thiazide Diuretic, Angiotensin Converting Enzyme Inhibitor Start: 04-07-2018 End: 01-06-2022 Lisinopril-[place] chlorothiazide 20-12.5 mg tablet Discontinued 1 {tbl} PO daily December 03, 2021 8:07pm January 06, 2022 8:40pm Start: 04-07-2018 End: 01-06-2022 take 1 tablet by mouth once daily Lisinopril-Hydrochlorothiazide Discontin ued 1 TABLET PO daily December 03, 2021 7:07pm January 06, 2022 7:40pm Start: 02-07-2016 lisinopril-hyd rochlorothiazide (PRINZIDE;ZESTORETIC) 20-12.5 MG per tablet take 1 tablet by yuliana th in the morning lisinopril-hydroCHLOROthiazide 20-12.5 M G tablet Take 1 tablet by mouth in the morning. Active Comment on above: Take 1 tablet by yuliana th once daily. levothyroxine sodium 0.137 mg oral tablet (20 sources) l-Thyroxine Start: take 1 tablet by mouth once daily Levothyroxine 150 mcg tablet Active 150 ug PO daily November 01, 2024 1:00am Start: 04-10-2023 End: 11-01-2024 take 1 tablet by mouth once daily Levothyroxine 137 mcg tablet Discontinued 137 ug PO DAILY November 01, 2024 1:05pm November 01, 2024 1:11pm Start: 01-18-2023 End: 04-10-2023 take 1 tablet by mouth once daily Levothyroxine 125 mcg tablet Discontinued 125 ug PO DAILY January 18, 2023 1:00am April 10, 2023 11:30am Start: 11-27-2022 End: 01-18-2023 take 1 tablet by mouth once daily Levothyroxine 112 mcg tablet Discontinued 112 ug PO DAILY November 27, 2022 1:00am January 18, 2023 10:54pm Start: 01-18-2021 End: 11-27-2022 take 1 tablet by mouth once daily Levothyroxine 100 mcg tablet Discontinued 100 ug PO daily December 10, 2021 8:58pm November 27, 2022 4:37pm Start: 01-18-2020 End: 01-18-2021 take 1 tablet by mouth once daily Levothyroxine 75 mcg tablet Discontinued 75 ug PO daily 90 90 January 18, 2020 3:46pm January 18, 2021 12:12pm Start: 04-07-2018 End: 12-30-2019 take 1 capsule by mouth once daily Levothyroxine 75 mcg capsule Discontinued 75 ug PO daily April 07, 2018 12:00am December 30, 2019 8:04pm Start: 11-08-2015 End: 01-13-2020 take 1 tablet by mouth once daily Levothyroxine 75 mcg tablet Discontinued 75 ug PO daily 90 90 January 18, 2019 1:00am January 12, 2020 1:00am January 13, 2020 1:09am Start: 11-08-2015 levothyroxine (SYNTHROID) 75 MCG tablet 100 mcg 3 11/08/2015 Active levothyroxine (T irosint) 137 MCG capsule Take by mouth every morning (before breakfast). Active levothyroxine so dium (LEVOTHYROXINE ORAL) Take by mouth. 0 Active Comment on above: Take by mouth. predniSONE 20 mg oral tablet (11 sources) Start: 04-09-2023 End: 11-23-2023 take 2 tablets by mouth once daily Prednisone 20 mg tablet Discontinued 40 mg PO DAILY August 21, 2023 5:58pm November 23, 2023 9:57pm Start: 04-09-2023 End: 11-23-2023 take 40 mg by mouth once daily Prednisone Discontinued 40 MG PO DAILY August 21, 2023 4:58pm November 23, 2023 8:57pm Start: 09-08-2022 End: 11-26-2022 take 2 tablets by mouth once daily Prednisone 20 mg tablet Discontinued 40 mg PO DAILY September 08, 2022 12:00am November 26, 2022 7:50pm Start: 09-08-2022 End: 11-26-2022 take 40 mg by mouth once daily Prednisone Discontinued 40 MG PO DAILY September 07, 2022 11:00pm November 26, 2022 6:50pm Problems Active Problems Problem Classification Problem Date Documented Date Episodic/Chronic Abdominal hernia (2 sources) Diaphragmatic hernia without obstruction or gangrene; Translations: [Diaphragmatic hernia without obstruction or gangrene] Onset: 07-25-2022 Episodic Cancer of cervix (20 sources) Malignant tumor of cervix; Translations: [Malignant neoplasm of cervix uteri, unspecified] Onset: 01-30-2016 01-30-2016 Chronic Comment on above: dysplasia HPV 2014 Cancer of cervix (3 sources) History of malignant neoplasm of cervix; Translations: [Personal history of malignant neoplasm of cervix uteri] 08-27-2023 Episodic Chronic obstructive pulmonary disease and bronchiectasis (4 sources) Bronchitis; Translations: [Bronchitis, not specified as acute or chronic] 09-08-2022 Episodic Deficiency and other anemia (10 sources) Anemia; Translations: [Anemia, unspecified] Onset: 12-01-2020 12-03-2020 Episodic Disorders of lipid metabolism (8 sources) Hypertriglyceridemia; Translations: [Pure hyperglyceridemia] 04-25-2021 Chronic Disorders of teeth and jaw (4 sources) Jaw pain; Translations: [Jaw pain] 04-07-2018 Episodic Esophageal disorders (4 sources) Gastroesophageal reflux disease; Translations: [Gastro-esophageal reflux disease without esophagitis] 12-03-2021 Chronic Essential hypertension (5 sources) Hypertensive disorder; Translations: [Essential (primary) hypertension] Onset: 12-07-2024 12-30-2019 Chronic Genitourinary symptoms and ill-defined conditions (4 sources) Urge incontinence of urine; Translations: [Urge incontinence] 04-07-2018 Chronic Lymphadenitis (4 sources) Submental lymphadenopathy; Translations: [Localized enlarged lymph nodes] 04-07-2018 Episodic Open wounds of extremities (4 sources) Laceration of right thumb; Translations: [Laceration without foreign body of right thumb without damage to nail, initial encounter] 12-18-2020 Episodic Other connective tissue disease (4 sources) Pain in thumb ; Translations: [Pain in right finger(s)] 12-04-2020 Episodic Other diseases of veins and lymphatics (4 sources) Acquired lymphedema of lower extremity; Translations: [Lymphedema, not elsewhere classified] 04-07-2018 Chronic Other lower respiratory disease (5 sources) Nodule of lung; Translations: [Solitary pulmonary nodule] Episodic Other lower respiratory disease (2 sources) Solitary pulmonary nodule; Translations: [Solitary pulmonary nodule] Onset: 07-25-2022 Episodic Other lower respiratory disease (4 sources) Dyspnea; Translations: [Shortness of breath] 11-30-2020 Episodic Other lower respiratory disease (4 sources) Lung mass; Translations: [Other nonspecific abnormal finding of lung field] 07-30-2021 Episodic Other screening for suspected conditions (not mental disorders or infectious disease) (2 sources) Abnormal findings on diagnostic imaging of other specified body structures; Translations: [Abnormal findings on dx imaging of oth body structures] Onset: 09-13-2021 Chronic Other screening for suspected conditions (not mental disorders or infectious disease) (14 sources) Encounter for screening mammogram for malignant neoplasm of breast; Translations: [D-dimer above reference range] Onset: 12-01-2020 Episodic Other upper respiratory infections (2 sources) Maxillary sinusitis; Translations: [Chronic maxillary sinusitis] 08-03-2023 Chronic Otitis media and related conditions (4 sources) Acute right otitis media; Translations: [Otitis media, unspecified, right ear] 09-08-2022 Episodic Residual codes; unclassified (4 sources) History of colonoscopy; Translations: [Other specified postprocedural states] 04-07-2018 Episodic Spondylosis; intervertebral disc disorders; other back problems (4 sources) Backache; Translations: [Dorsalgia, unspecified] 11-30-2020 Episodic Substance-related disorders (3 sources) Tobacco dependence in remission; Translations: [Nicotine dependence, cigarettes, in remission] 08-27-2023 Chronic Thyroid disorders (5 sources) Hypothyroidism; Translations: [Hypothyroidism, unspecified] Onset: 08-24-2025 12-30-2019 Chronic Past or Other Problems Problem Classification Problem Date Documented Da te Episodic/Chronic Blindness and vision defects (2 sources) Presbyopia; Translations: [Presbyopia] Onset: 06-08-2018 06-08-2018 Episodic Other connective tissue disease (2 sources) Muscle pain; Translations: [Myalgia, unspecified site] Onset: 12-01-2020 12-01-2020 Episodic Other diseases of kidney and ureters (2 sources) Acute renal insufficiency; Translations: [Disorder of kidney and ureter, unspecified] Onset: 12-01-2020 12-01-2020 Episodic Other lower respiratory disease (3 sources) Multiple nodules of lung; Translations: [Other nonspecific abnormal finding of lung field] Onset: 11-18-2022 Episodic Other lower respiratory disease (2 sources) Dyspnea on exertion; Translations: [Other forms of dyspnea] Onset: 12-01-2020 12-01-2020 Episodic Unclassified (4 sources) 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 Requested for callback. Normal [facility] DBT Breast - bilateral scree zoe 07-12-2025 No mammographic evidence of malignancy. ASSESSMENT: Category 1 Negative RECOMMENDATION: Routine screening mammogram in 1 year. Bilateral CANCER RISK ASSESSMENT: This risk assessment is based on patient provided information collected in a risk survey taken at the time of this examination. LIFETIME BREAST CANCER RISK: Warren 8: 6.99% - If greater than or equal to 20%, consider annual mammogram and annual screening Breast MRI or follow up in high risk clinic. Is the patient at elevated risk based on the HBOC criteria? No (Hereditary Breast and Ovarian Cancer) - If Yes, consider genetic counseling and testing with high risk follow up Is the patient at elevated risk based on the Gerardo Syndrome criteria? No - If Yes, consider genetic counseling and testing with high risk follow up. Report Dictated on Electronically Signed By: Flora Haas MD Electronically Signed Date/Time: 07/12/2025 3:15 PM [facility] 1950 [id number] Exam Date/Time: 07/12/2025 14:45 Procedure: BI MAMMOGRAM SCREENING TOMOSYNTHESIS BILATERAL Ordering Provider: BANERJEE ROBIN Reason For Exam: This exam was performed at [facility] at [address] [address] PATIENT CANCER HISTORY: Self Uterine Cancer age 63 FAMILY CANCER HISTORY: Paternal Aunt Pancreatic Cancer age 65 Image views: 2D Bilateral CC and MLO views were acquired. 3D Bilateral CC and MLO views were acquired. Images were reviewed with CAD. Markings on images: BB's = Nipples; skin lesions Open napaimute = Palpable Line = Scar COMPARISON: 05/22/2023, 06/20/2024 TISSUE DENSITY: BIRADS B - There are scattered areas of fibroglandular density. FINDINGS: No suspicious masses, architectural distortions or suspiciously clustered microcalcifications are identified. There is no evidence of skin thickening or nipple retraction. There are no significant changes when compared with prior studies. [facility] Flora Haas MD - 07/12/2025 [facility] 1950 [id number] Exam Date/Time: 07/12/2025 14:45 Procedure: BI MAMMOGRAM SCREENING TOMOSYNTHESIS BILATERAL Ordering Provider: BANERJEE ROBIN Reason For Exam: This exam was performed at [facility] at [facility] [address] [facility] [address] PATIENT CANCER HISTORY: Self Uterine Cancer age 63 FAMILY CANCER HISTORY: Paternal Aunt Pancreatic Cancer age 65 Image views: 2D Bilateral CC and MLO views were acquired. 3D Bilateral CC and MLO views were acquired. Images were reviewed with CAD. Markings on images: BB's = Nipples; skin lesions Open napaimute = Palpable Line = Scar COMPARISON: 05/22/2023, 06/20/2024 TISSUE DENSITY: BIRADS B - There are scattered areas of fibroglandular density. FINDINGS: No suspicious masses, architectural distortions or suspiciously clustered microcalcifications are identified. There is no evidence of skin thickening or nipple retraction. There are no significant changes when compared with prior studies. IMPRESSION: No mammographic evidence of malignancy. ASSESSMENT: Category 1 Negative RECOMMENDATION: Routine screening mammogram in 1 year. Bilateral CANCER RISK ASSESSMENT: This risk assessment is based on patient provided information collected in a risk survey taken at the time of this examination. LIFETIME BREAST CANCER RISK: Warren 8: 6.99% - If greater than or equal to 20%, consider annual mammogram and annual screening Breast MRI or follow up in high risk clinic. Is the patient at elevated risk based on the HBOC criteria? No (Hereditary Breast and Ovarian Cancer) - If Yes, consider genetic counseling and testing with high risk follow up Is the patient at elevated risk based on the Gerardo Syndrome criteria? No - If Yes, consider genetic counseling and testing with high risk follow up. Report Dictated on Electronically Signed By: Flora Haas MD Electronically Signed Date/Time: 07/12/2025 3:15 PM EDT [facility] Radiology Study observation (narrative) [facility] DBT Breast - bilateral scree ningOrdered By: Flora Haas on 07-12-2025 [facility] Work Phone: TSH DL <= 0.005 mIU/L QnOrde red By: Skinny London on 03-28-2025 TSH Qn 0.756 uIU/mL 0.300-4.200 Thyroid Stim Hormone (TSH)on 03-28-2025 TSH 0.756 uIU/mL Normal 0.300-4.200 Comment on above: Performed By: #### L [id number] #### Laboratory [address] [place], [address] CBC W/Diff, Automatedon 12-1 Absolute Lymph 1.15 X10 3/uL Normal 0.83-4.51 Comment on above: Performed By: #### L 500.4100, L100.0100, L500.4050, [id number] #### Laboratory [address] [place], [place], [address] Absolute Neut 3.6 X10 3/uL Normal 2.0-7.7 Comment on above: Performed By: #### L 500.4100, L100.0100, L500.4050, L501.9520 #### Laboratory [address] [place], [address] Basophils/100 WBC (Bld) 0.9 % Normal 0-1 Comment on above: Performed By: #### L 500.4100, L100.0100, L500.4050, [id number] #### Laboratory [address] [place], [address] Eosinophils/100 WBC (Bld) 4.1 % Normal 0-5 Comment on above: Performed By: #### L 500.4100, L100.0100, L500.4050, [id number] #### Laboratory [address] [place], [address] Erythrocyte distribution width (RBC) [Ratio] 12.6 % Normal 11.6-14.6 Comment on above: Performed By: #### L 500.4100, L100.0100, L500.4050, [id number] #### Laboratory [address] [place], [address] Hematocrit (Bld) [Volume fraction] 40.6 % Normal 37-47 Comment on above: Performed By: #### L 500.4100, L100.0100, L500.4050, [id number] #### Laboratory [address] [place], [address] Hemoglobin (Bld) [Mass/Vol] 12.8 g/dL Normal 12.0-15.0 Comment on above: Performed By: #### L 500.4100, L100.0100, L500.4050, [id number] #### Laboratory [address] [place], [address] IG% 0.400 Normal 0.0-0.9 Comment on above: Result Comment: IG% - Immature Granulocytes (promyelocytes, myelocytes and metamyelocytes) > 1% indicates that a LEFT SHIFT is Present. Performed By: #### L 500.4100, L100.0100, L500.4050, L501.9520 #### Laboratory [address] [place], [address] Lymphocytes/100 WBC (Bld) 20.6 % Normal 19-41 Comment on above: Performed By: #### L 500.4100, L100.0100, L500.4050, [id number] #### Laboratory [address] [place], [address] MCH (RBC) [Entitic mass] 30.3 pg Normal 27.0-32.0 Comment on above: Performed By: #### L 500.4100, L100.0100, L500.4050, [id number] #### Laboratory [address] [place], [address] MCHC (RBC) [Mass/Vol] 31.5 g/dL Low 32-36 [facility] Comment on above: Performed By: #### L 500.4100, L100.0100, L500.4050, [id number] #### Laboratory [address] [place], [address] MCV (RBC) [Entitic vol] 96.2 fL Normal 81-99 Comment on above: Performed By: #### L 500.4100, L100.0100, L500.4050, [id number] #### Laboratory [address] [place], [address] Monocytes/100 WBC (Bld) 9.3 % Normal 0-10 Comment on above: Performed By: #### L 500.4100, L100.0100, L500.4050, [id number] #### Laboratory [address] [place], [address] Neutrophils/100 WBC (Bld) 64.7 % Normal 47-70 Comment on above: Performed By: #### L 500.4100, L100.0100, L500.4050, [id number] #### Laboratory [address] [place], [address] Nucleated RBC (Bld) [#/Vol] 0 10*3/uL Normal 0-5 Comment on above: Performed By: #### L 500.4100, L100.0100, L500.4050, [id number] #### Laboratory [address] [place], [address] Platelet mean volume (Bld) [Entitic vol] 10.0 fL Normal 6.2-12.0 Comment on above: Performed By: #### L 500.4100, L100.0100, L500.4050, [id number] #### Laboratory [address] [place], [address] Platelets (Bld) [#/Vol] 291 10*3/uL Normal 150-450 Comment on above: Performed By: #### L 500.4100, L100.0100, L500.4050, [id number] #### Laboratory [address] [place], [address] RBC (Bld) [#/Vol] 4.22 10*6/uL Normal 4.2-5.4 [facility] Comment on above: Performed By: #### L 500.4100, L100.0100, L500.4050, [id number] #### Laboratory [address] [place], [address] RDW SD 44.0 fl High 35.1-43.9 Comment on above: Performed By: #### L 500.4100, L100.0100, L500.4050, [id number] #### Laboratory [address] [place], [address] WBC (Bld) [#/Vol] 5.6 10*3/uL Normal 4.4-11.[address] [facility] Comment on above: Performed By: #### L 500.4100, L100.0100, L500.4050, [id number] #### Laboratory [address] [place], [address] Comprehensive Metabolic Prof ilon 10-31-2024 Albumin [Mass/Vol] 3.9 g/dL Normal 3.2-5.[address] [facility] Comment on above: Performed By: #### L 500.4100, L100.0100, L500.4050, [id number] #### Laboratory [address] [place], [address] Albumin/Globulin [Mass ratio] 1.1 {ratio} Normal 0.9-2.4 Comment on above: Performed By: #### L 500.4100, L100.0100, L500.4050, [id number] #### Laboratory [address] [place], [address] ALK P 67 U/L Normal 45-117 Comment on above: Performed By: #### L 500.4100, L100.0100, L500.4050, [id number] #### Laboratory [address] [place], [address] ALT [Catalytic activity/Vol] 32 U/L Normal 13-56 Comment on above: Performed By: #### L 500.4100, L100.0100, L500.4050, [id number] #### Laboratory [address] [place], [address] AST [Catalytic activity/Vol] 23 U/L Normal 15-37 Comment on above: Performed By: #### L 500.4100, L100.0100, L500.4050, L501.9520 #### Laboratory [address] [place], [address] Bilirubin [Mass/Vol] 0.50 mg/dL Normal 0.20-1.00 [facility] Comment on above: Result Comment: For patients on eltrombopag therapy, use of Dimension [place] TBIL is not recommended. Performed By: #### L 500.4100, L100.0100, L500.4050, L501.9520 #### Laboratory [address] [place], [address] BUN/CRE 12.3 RATIO Normal 10-20 Comment on above: Performed By: #### L 500.4100, L100.0100, L500.4050, [id number] #### Laboratory [address] [place], [address] CA,Total 9.3 mg/dL Normal 8.5-10.1 Comment on above: Performed By: #### L 500.4100, L100.0100, L500.4050, [id number] #### Laboratory [address] [place], [address] Chloride [Moles/Vol] 108 mmol/L High 98-107 [facility] Comment on above: Performed By: #### L 500.4100, L100.0100, L500.4050, L501.9520 #### Laboratory [address] [place], [address] CO2 [Moles/Vol] 29.0 mmol/L Normal 21.0-32.0 Comment on above: Performed By: #### L 500.4100, L100.0100, L500.4050, L501.9520 #### Laboratory [address] [place], [address] Creatinine [Mass/Vol] 1.06 mg/dL High 0.55-1.02 [facility] Comment on above: Result Comment: The validity of the calculated GFR GFRAA in patients over 70 years has not been determined. Clinical correlation is essential. Performed By: #### L 500.4100, L100.0100, L500.4050, L501.9520 #### Laboratory [address] [place], [address] EST GFR - AA 66 mL/min Normal >60 Comment on above: Result Comment: Afri can Barbadian GFR Calc Performed By: #### L 500.4100, L100.0100, L500.4050, L501.9520 #### Laboratory [address] [place], [address] GAP 4 Low 5-15 Comment on above: Performed By: #### L 500.4100, L100.0100, L500.4050, L501.9520 #### Laboratory [address] [place], [address] GFR/1.73 sq M.predicted among non-blacks MDRD (S/P/Bld) [Vol rate/Area] 54 mL/min/{1.73_m2} Low >60 Comment on above: Result Comment: Non- GFR Calc Performed By: #### L 500.4100, L100.0100, L500.4050, L501.9520 #### Laboratory [address] [place], [address] Globulin (S) [Mass/Vol] 3.6 g/dL Normal 2.2-4.2 Comment on above: Performed By: #### L 500.4100, L100.0100, L500.4050, L501.9520 #### Laboratory [address] [place], [address] Glucose [Mass/Vol] 104 mg/dL Normal 74-[address] [facility] Comment on above: Result Comment: Fast ing Glucose result from 100 to 125 mg/dL suggests IMPAIRED HOMEOSTASIS per A.D.A. criteria. Performed By: #### L 500.4100, L100.0100, L500.4050, L501.9520 #### Laboratory [address] [place], [address] Potassium [Moles/Vol] 4.5 mmol/L Normal 3.5-5.1 [facility] Comment on above: Performed By: #### L 500.4100, L100.0100, L500.4050, L501.9520 #### Laboratory [address] [place], [address] Sodium [Moles/Vol] 141 mmol/L Normal 136-[address] [facility] Comment on above: Performed By: #### L 500.4100, L100.0100, L500.4050, L501.9520 #### Laboratory [address] [place], [address] T PROT 7.5 g/dL Normal 6.4-8.2 Comment on above: Performed By: #### L 500.4100, L100.0100, L500.4050, L501.9520 #### Laboratory [address] [place], [address] Urea nitrogen [Mass/Vol] 13 mg/dL Normal 7-18 Comment on above: Performed By: #### L 500.4100, L100.0100, L500.4050, L501.9520 #### Laboratory [address] [place], [address] Lipid Profileon 10-31-2024 Cholesterol [Mass/Vol] 153 mg/dL Normal 200 [facility] Comment on above: Result Comment: <200 mg/dL Desirable 200-240 mg/dL Borderline >240 mg/dL High Risk Performed By: #### L 500.4100, L100.0100, L500.4050, L501.9520 #### Laboratory [address] [place], [address] Cholesterol in HDL [Mass/Vol] 73 mg/dL Normal Comment on above: Result Comment: The drugs N-Acetylcysteine and Metamizole may falsely depress this assay. Reference Range HDL <40 mg/dL Low HDL Cholesterol HDL >or= 60 mg/dL High HDL Cholesterol Performed By: #### L 500.4100, L100.0100, L500.4050, L501.9520 #### Laboratory [address] [place], [address] Cholesterol in LDL [Mass/Vol] 57 mg/dL Normal 0-130 Comment on above: Performed By: #### L 500.4100, L100.0100, L500.4050, L501.9520 #### Laboratory [address] [place], [address] Cholesterol in VLDL [Mass/Vol] 23 mg/dL Normal 5-40 Comment on above: Performed By: #### L 500.4100, L100.0100, L500.4050, L501.9520 #### Laboratory [address] [place], [address] Triglyceride [Mass/Vol] 117 mg/dL Normal Comment on above: Result Comment: The drugs N-Acetylcysteine and Metamizole may falsely depress this assay. Serum Triglycerides Reference Interval Normal <150 mg/dL Borderline high 150 - 199 mg/dL High 200 - 499 mg/dL Very High > or = 500 mg/dL Performed By: #### L 500.4100, L100.0100, L500.4050, L501.9520 #### Laboratory [address] [place], [address] Thyroid Stim Hormone (TSH)on 10-31-2024 TSH 3.150 uIU/mL Normal 0.358-3.740 Comment on above: Performed By: #### L 500.4100, L100.0100, L500.4050, L501.9520 #### Laboratory [address] [place], [address] HPV High Risk PCRon 09-29-20 HPV 16 DNA NIDA+probe Ql (Unsp spec) Not detected Not Detected [facility] HPV 18 DNA NIDA+probe Ql (Unsp spec) Not detected Not Detected [facility] HPV Type 16,18, and others DNA [facility] Comment on above: The other high risk HPV results include HPV types: 31, 33, 35, 39, 45, 51, 52, 56, 58, 59, 66, and 68. Methodology: Pedro Kendall HPV PCR Assay Other High Risk HPV Type Not detected Not Detected [facility] 36on 09-27-2024 36 Patient would like t o discuss her HPV results, please contact when able, thank you Normal [facility] Cytology Cervical or vaginal smear or scraping studyOrdered By: Madisyn Josue on 09-21-2024 Case Report Gynecologic Cytology Case: [id number] Authorizing Provider: Fariha Anders APRN - [employer] Collected: 09/08/2024 1128 Ordering Location: [facility] Gynecologic Received: 09/09/2024 2117 Oncology - [place] First Screen: CATARINO Linda Rescreen: CATARINO Barnett Pathologist: Madisyn Richey MD Specimen: ThinPrep, Pap, Vagina [employer] [facility] Work Phone: Case Screening Location [facility], [address] [place] [id number]; CLIA: [id number]; Joint Commission: [id number]; CAP: [id number] [employer] Phone: Interpretation NEGATIVE FOR SQUAMOU S INTRAEPITHELIAL LESION OR MALIGNANCY. [employer] Work Phone: Other Findings Reactive cellular changes with inflammation. Hyperkeratosis present. [employer] Phone: Pathologist Interpretation Location [facility], [address] [facility] [address]; CLIA: [id number]; Joint Commission: [id number]; CAP: [id number] [employer] Phone: [facility] MOWGLI Work Phone: Office Visiton 09-08-2024 Follow-up visit [id number] Shine Min 1950 F Date Provider Department Center 09/08/2024 [id number], KENDRA [facility] EVP STRATEGY None Family History Problem Relation Age of Onset Lung cancer Father 61 Cervical cancer Maternal Grandmother 51 Pancreatic cancer Father's Sister 65 Lung cancer Father's Brother 65 Breast cancer Neg Hx Ovarian cancer Neg Hx Colon cancer Neg Hx Uterine cancer Neg Hx Family Status - Relation Status Age at Father Maternal Grandmother Notes: of female cancer Father's Sister Alive Father's Brother Alive Neg Hx Level of Service:58604 DE OFFICE/OUTPATIENT ESTABLISHED [facility] 10 MIN Reason for Visit and Comments: Follow-up [171272] Normal [facility] Progress Noteon 09-08-2024 Progress Note Chief Complaint Patient presents with Follow-up HISTORY OF THE PRESENT ILLNESS: Shine Min is a 74 y.o. female who presents for evaluation and [...] hepatic cysts. 3. Moderate-sized hiatal hernia. CXR [facility] in 2020- That showed a pulmonary nodule. On 08/23/21 CT of chest showed: IMPRESSION: 1. Pulmonary nodule in the inferolateral aspect of the left upper lobe has demonstrated interval increase in size compared to 2014. Based on the 202 ACR white paper [...] new suspicious pulmonary nodules. ASSESSMENT CATEGORY (version 1. - 2019): Lung-RADS Assessment Category 2 - [...] Denies pelvic pain, vaginal bleeding, vaginal discharge. Does have some vaginal dryness. Now she has 4 grandchildren! 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 Retired. Doing well! Past Medical History: Diagnosis [...] Social History Tobacco Use Smoking status: Former Current packs/day: 0.00 Types: Cigarettes Quit date: 11/16/1986 Years since quittin.9 Smokeless tobacco: Never Substance Use Topics Alcohol [...] Prior to Visit Medication Sig Dispense Refill ezetimibe (Zetia) 10 MG tablet Take 10 mg by mouth daily. atorvastatin (Lipitor) 10 MG tablet Take 10 mg by mouth daily. ferrous fumarate-vitamin C ER (Se[place]our-[place] 65-25) Take 1 tablet by mouth in the morning and 1 tablet at noon and 1 tablet in the evening. Take with meals. Do not crush, chew, or split.. ferrous sulfate 325 (65 Fe) MG tablet Take 325 mg by mouth daily (with breakfast). levothyroxine (Tirosint) 137 MCG capsule Take by mouth every morning (before breakfast). lisinopril-hydroCHLOROt hiazide 20-12.5 MG tablet Take 1 tablet by mouth in the morning. losartan (Cozaar) 100 MG tablet Take 100 mg by mouth daily. Multiple Vitamins-Minerals (multivitamin with minerals) tablet Take 1 tablet by mouth daily. niacin (Slo-Niacin) 500 MG ER tablet Take 1,000 mg by mouth Nightly. pantoprazole (ProtoNix) 40 MG EC tablet Take 40 mg by mouth every morning (before breakfast). Do not crush, chew, or split. simvastatin (Zocor) 10 MG tablet Take 10 mg by mouth Nightly. No current facility-administered medications on file prior to visit. Allergies as of 09/08/2024 - Reviewed 09/08/2024 Allergen Reaction Noted Ciprofloxacin 10/27/2018 Penicillins 01/30/2016 Statins 09/24/2022 Sulfa antibiotics 01/30/2016 REVIEW OF SYSTEMS: A 12 point review of systems was performed and is as per the history of the present illness, all other systems were reviewed and are negative. Vitals: 1 (more content not included)... Normal [facility] DBT Breast - bilateral scree zoe 06-20-2024 No mammographic evidence of malignancy. ASSESSMENT: Category 1 Negative RECOMMENDATION: Routine screening mammogram in 1 year. Bilateral CANCER RISK ASSESSMENT: This risk assessment is based on patient provided information collected in a risk survey taken at the time of this examination. LIFETIME BREAST CANCER RISK: Warren 8: 7.86% - If greater than or equal to 20%, consider annual mammogram and annual screening Breast MRI or follow up in high risk clinic. Is the patient at elevated risk based on the HBOC criteria? No (Hereditary Breast and Ovarian Cancer) - If Yes, consider genetic counseling and testing with high risk follow up Is the patient at elevated risk based on the Gerardo Syndrome criteria? No - If Yes, consider genetic counseling and testing with high risk follow up. Report Dictated on Electronically Signed By: Robert Jenkins MD Electronically Signed Date/Time: 06/20/2024 12:32 PM EDT [facility] 1950 [id number] Exam Date/Time: 06/20/2024 10:40 Procedure: BI MAMMOGRAM SCREENING TOMOSYNTHESIS BILATERAL Ordering Provider: BANERJEE ROBIN Reason For Exam: PATIENT CANCER HISTORY: Self Uterine Cancer age 63 FAMILY CANCER HISTORY: Paternal Aunt Pancreatic Cancer age 65 Image views: 2D Bilateral CC and MLO views were acquired. 3D Bilateral CC and MLO views were acquired. Images were reviewed with CAD. Markings on images: BB's = Nipples; skin lesions Open napaimute = Palpable Line = Scar COMPARISON: 2019 TISSUE DENSITY: BIRADS B - There are scattered fibroglandular densities. FINDINGS: No suspicious masses, architectural distortions or suspiciously clustered microcalcifications are identified. There are no significant changes when compared with prior studies. [facility] Robert Jenkins MD - 06/20/2024 Patient Name: SHINE MIN : 1950 Exam Date/Time: 06/20/2024 10:40 Procedure: BI MAMMOGRAM SCREENING TOMOSYNTHESIS BILATERAL Ordering Provider: BANERJEE ROBIN Reason For Exam: PATIENT CANCER HISTORY: Self Uterine Cancer age 63 FAMILY CANCER HISTORY: Paternal Aunt Pancreatic Cancer age 65 Image views: 2D Bilateral CC and MLO views were acquired. 3D Bilateral CC and MLO views were acquired. Images were reviewed with CAD. Markings on images: BB's = Nipples; skin lesions Open napaimute = Palpable Line = Scar COMPARISON: 2019 TISSUE DENSITY: BIRADS B - There are scattered fibroglandular densities. FINDINGS: No suspicious masses, architectural distortions or suspiciously clustered microcalcifications are identified. There are no significant changes when compared with prior studies. IMPRESSION: No mammographic evidence of malignancy. ASSESSMENT: Category 1 Negative RECOMMENDATION: Routine screening mammogram in 1 year. Bilateral CANCER RISK ASSESSMENT: This risk assessment is based on patient provided information collected in a risk survey taken at the time of this examination. LIFETIME BREAST CANCER RISK: Warren 8: 7.86% - If greater than or equal to 20%, consider annual mammogram and annual screening Breast MRI or follow up in high risk clinic. Is the patient at elevated risk based on the HBOC criteria? No (Hereditary Breast and Ovarian Cancer) - If Yes, consider genetic counseling and testing with high risk follow up Is the patient at elevated risk based on the Gerardo Syndrome criteria? No - If Yes, consider genetic counseling and testing with high risk follow up. Report Dictated on Electronically Signed By: Robert Jenkins MD Electronically Signed Date/Time: 06/20/2024 12:32 PM EDT [facility]OWGL[facility] Radiology Study observation (narrative) [employer] [facility] DBT Breast - bilateral scree ningOrdered By: Robert Jenkins on 06-20-2024 [employer] Work Phone: Absolute lymphocyte countOrd ered By: Skinny London on 11-23-2023 Lymphocytes Auto (Unsp spec) [#/Vol] 1.22 10*3/uL 0.83-4.51 Basophil percentageOrdered B y: Skinny London on 11-23-2023 Basophils/100 WBC (Bld) 1.0 % 0-1 Bilirubin [Mass/Vol] 0.40 mg/dL 0.20-1.00 [facility] Comment on above: For patients on eltr ombopag therapy, use of Dimension [place] TBIL is not recommended. Chloride [Moles/Vol] 111 mmol/L 98-107 [facility] Cholesterol [Mass/Vol] 150 mg/dL <200 [facility] Comment on above: <200 mg/dL Desirable 200-240 mg/dL Borderline >240 mg/dL High Risk Eosinophils/100 WBC (Bld) 3.9 % 0-5 Glucose [Mass/Vol] 127 mg/dL 74-[address] [facility] Comment on above: Fasting Glucose resu lt greater than or equal to 126 mg/dL suggests DIABETES MELLITUS per A.D.A. criteria. Neutrophils (Bld) [#/Vol] 3.0 10*3/uL 2.0-7.7 Neutrophils/100 WBC (Bld) 61.7 % 47-70 Potassium [Moles/Vol] 4.0 mmol/L 3.5-5.1 [facility] Protein [Mass/Vol] 7.2 g/dL 6.4-8.[address] [facility] Sodium [Moles/Vol] 143 mmol/L 136-[address] [facility] Triglyceride [Mass/Vol] 262 mg/dL <199 Comment on above: The drugs N-Acetylcy steine and Metamizole may falsely depress this assay.Serum Triglycerides Reference Interval Normal <150 mg/dL Borderline high 150 - 199 mg/dL High 200 - 499 mg/dL Very High > or = 500 mg/dL WBC (Bld) [#/Vol] 4.9 10*3/uL 4.4-11.[address] [facility] Blood erythrocytes count (nu mber/volume)Ordered By: Skinny London on 11-23-2023 RBC (Bld) [#/Vol] 4.22 10*6/uL 4.2-5.4 [facility] Blood hemoglobin measurement (mass/volume)Ordered By: Skinny London on 11-23-2023 Hemoglobin (Bld) [Mass/Vol] 12.9 g/dL 12.0-15.0 Blood lymphocytes/100 leukoc ytesOrdered By: Skinny London on 11-23-2023 Lymphocytes/100 WBC (Bld) 25.0 % 19-41 Blood monocytes/100 leukocyt esOrdered By: Skinny London on 11-23-2023 Monocytes/100 WBC (Bld) 8.0 % 0-10 Blood platelet mean volumeOr dered By: Skinny London on 11-23-2023 Platelet mean volume (Bld) [Entitic vol] 9.5 fL 6.2-12.0 Determination of erythrocyte mean corpuscular volume (MCV)Ordered By: Skinny London on 11-23-2023 MCV (RBC) [Entitic vol] 94.5 fL 81-99 Hematocrit Auto (Bld) [Volum e fraction]Ordered By: Skinny London on 11-23-2023 Hematocrit (Bld) [Volume fraction] 39.9 % 37-47 Laboratory - Chemistry and C hemistry - challengeOrdered By: Skinny London on 11-23-2023 ALP [Catalytic activity/Vol] 70 U/L 45-117 ALT [Catalytic activity/Vol] 37 U/L 13-56 CO2 [Moles/Vol] 27.0 mmol/L 21.0-32.0 Globulin (S) [Mass/Vol] 3.4 g/dL 2.2-4.2 Urea nitrogen/Creatinine [Mass ratio] 12.3 mg/mg 10-20 Laboratory - Hematology and Cell countsOrdered By: Skinny London on 11-23-2023 Erythrocyte distribution width (RBC) [Entitic vol] 43.9 fL 35.1-43.9 Erythrocyte distribution width (RBC) [Ratio] 12.8 % 11.6-14.6 Immature granulocytes/100 WBC (Bld) 0.400 % 0.0-0.9 Comment on above: IG% - Immature Granu locytes (promyelocytes, myelocytes and metamyelocytes) > 1% indicates that a LEFT SHIFT is Present. MCH (RBC) [Entitic mass] 30.6 pg 27.0-32.0 Nucleated RBC/100 WBC (Bld) [Ratio] 0 % 0-5 MCHC Auto (RBC) [Mass/Vol]Or dered By: Skinny London on 11-23-2023 MCHC (RBC) [Mass/Vol] 32.3 g/dL 32-36 [facility] No Panel InformationOrdered By: Skinny London on 11-23-2023 Estimated GFR (MDRD) Amer 60 mL/min >60 Comment on above: GFR Calc Estimated GFR (MDRD) Non-Af Amer 50 mL/min >60 Comment on above: Non- GFR Calc Thyroid Stimulating Hormone (TSH) 2.79 uIU/mL 0.358-3.74 Platelets bldOrdered By: Abebe London on 11-23-2023 Platelets (Bld) [#/Vol] 284 10*3/uL 150-450 Serum or plasma albumin bibi urement (mass/volume)Ordered By: Skinny London on 11-23-2023 Albumin [Mass/Vol] 3.8 g/dL 3.2-5.[address] [facility] Serum or plasma albumin/glob ulin mass ratioOrdered By: Skinny London on 11-23-2023 Albumin/Globulin [Mass ratio] 1.1 {ratio} 0.9-2.4 Serum or plasma calcium bibi urement (mass/volume)Ordered By: Skinny London on 11-23-2023 Calcium [Mass/Vol] 8.4 mg/dL 8.5-10.[address] [facility] Serum or plasma cholesterol in HDL measurement (mass/volume)Ordered By: Skinny London on 11-23-2023 Cholesterol in HDL [Mass/Vol] 56 mg/dL >40 Comment on above: The drugs N-Acetylcy steine and Metamizole may falsely depress this assay. Reference Range HDL <40 mg/dL Low HDL Cholesterol HDL >or= 60 mg/dL High HDL Cholesterol Serum or plasma cholesterol in VLDL measurement (mass/volume)Ordered By: Skinny London on 11-23-2023 Cholesterol in VLDL [Mass/Vol] 52 mg/dL 5-40 Serum or plasma creatinine m easurement (mass/volume)Ordered By: Skinny London on 11-23-2023 Creatinine [Mass/Vol] 1.14 mg/dL 0.55-1.02 [facility] Comment on above: The validity of the calculated GFR & GFRAA in patients over 70 years has not been determined. Clinical correlation is essential. Serum or plasma low density lipoprotein (LDL) cholesterol measurement (mass/volume)Ordered By: Skinny London on 11-23-2023 Cholesterol in LDL [Mass/Vol] 42 mg/dL 0-130 Serum or plasma urea nitroge n measurement (mass/volume)Ordered By: Skinny London on 11-23-2023 Urea nitrogen [Mass/Vol] 14 mg/dL 7-18 Thin prep Papanicolaou smear with manual screeningOrdered By: Skinny London on 11-23-2023 Thin prep Papanicolaou smear with manual screening 24 U/L 15-37 Thin prep Papanicolaou smear with manual screening 5 5-15 Whole blood hemoglobin A1c/t otal hemoglobin ratio (mass fraction)Ordered By: Skinny London on 11-23-2023 HbA1c (Bld) [Mass fraction] 5.4 % 3.8-5.6 Comment on above: Normal < 5.7 % Predi abetic 5.7 - 6.4 % Diabetic >or= 6.5 % Please note range changes. DBT Breast - bilateral warrene zoe 05-22-2023 No mammographic evidence of malignancy. ASSESSMENT: Category 1 Negative RECOMMENDATION: Routine screening mammogram in 1 year. Bilateral CANCER RISK ASSESSMENT: This risk assessment is based on patient provided information collected in a risk survey taken at the time of this examination. LIFETIME BREAST CANCER RISK: Warren: 8.02 % - If greater than or equal to 20%, consider annual mammogram and annual screening Breast MRI or follow up in high risk clinic. Is the patient at elevated risk based on the HBOC criteria? NCCN HBOC Guidelines: 0 % (Hereditary Breast and Ovarian Cancer) - If 100%, consider genetic counseling and testing with high risk follow up. Is the patient at elevated risk based on the Gerardo Syndrome criteria? NCCN Gerardo: 0 % - If 100%, consider genetic counseling and testing with high risk follow up. Report Dictated on Electronically Signed By: Flora Haas Electronically Signed Date/Time: 05/22/2023 12:21 PM [facility] Patient Name: SHINE CRUZ : 1950 [facility]#: [id number] Exam Date/Time: 05/22/2023 12:02 Procedure: BI MAMMOGRAM SCREENING TOMOSYNTHESIS BILATERAL Ordering Provider: BANERJEE ROBIN Reason For Exam: Z12.31 Image views: 2D Bilateral CC and MLO views were acquired. 3D Bilateral CC and MLO views were acquired. Images were reviewed with CAD. Markings on images: BB's = Nipples; skin lesions Open napaimute = Palpable Line = Scar COMPARISON: 09/17/2020, 04/18/2022 TISSUE DENSITY: BIRADS B - There are scattered fibroglandular densities. FINDINGS: No suspicious masses, architectural distortions or suspiciously clustered microcalcifications are identified. There is no evidence of skin thickening or nipple retraction. There are no significant changes when compared with prior studies. [facility] Flora Haas MD - 05/22/2023 [facility] 1950 [id number] Exam Date/Time: 05/22/2023 12:02 Procedure: BI MAMMOGRAM SCREENING TOMOSYNTHESIS BILATERAL Ordering Provider: BANERJEE ROBIN Reason For Exam: Z12.31 Image views: 2D Bilateral CC and MLO views were acquired. 3D Bilateral CC and MLO views were acquired. Images were reviewed with CAD. Markings on images: BB's = Nipples; skin lesions Open napaimute = Palpable Line = Scar COMPARISON: 09/17/2020, 04/18/2022 TISSUE DENSITY: BIRADS B - There are scattered fibroglandular densities. FINDINGS: No suspicious masses, architectural distortions or suspiciously clustered microcalcifications are identified. There is no evidence of skin thickening or nipple retraction. There are no significant changes when compared with prior studies. IMPRESSION: No mammographic evidence of malignancy. ASSESSMENT: Category 1 Negative RECOMMENDATION: Routine screening mammogram in 1 year. Bilateral CANCER RISK ASSESSMENT: This risk assessment is based on patient provided information collected in a risk survey taken at the time of this examination. LIFETIME BREAST CANCER RISK: JohnerGaryck: 8.02 % - If greater than or equal to 20%, consider annual mammogram and annual screening Breast MRI or follow up in high risk clinic. Is the patient at elevated risk based on the HBOC criteria? NCCN HBOC Guidelines: 0 % (Hereditary Breast and Ovarian Cancer) - If 100%, consider genetic counseling and testing with high risk follow up. Is the patient at elevated risk based on the Gerardo Syndrome criteria? NCCN Gerardo: 0 % - If 100%, consider genetic counseling and testing with high risk follow up. Report Dictated on Electronically Signed By: Flora Haas Electronically Signed Date/Time: 05/22/2023 12:21 PM EDT [facility] Radiology Study observation (narrative) [facility] DBT Breast - bilateral scree ningOrdered By: Flora Haas on 05-22-2023 [facility] Work Phone: No Panel InformationOrdered By: Skinny London on 05-11-2023 Thyroid Stimulating Hormone (TSH) 1.48 uIU/mL 0.358-3.74 No Panel InformationOrdered By: Skinny London on 04-09-2023 Thyroid Stimulating Hormone (TSH) 4.57 uIU/mL 0.358-3.74 No Panel InformationOrdered By: Skinny London on 01-16-2023 Thyroid Stimulating Hormone (TSH) 7.39 uIU/mL 0.358-3.74 Absolute lymphocyte countOrd ered By: Skinny London on 11-26-2022 Lymphocytes Auto (Unsp spec) [#/Vol] 1.17 10*3/uL 0.83-4.51 Basophil percentageOrdered B y: Skinny London on 11-26-2022 Basophils/100 WBC (Bld) 1.3 % 0-1 Bilirubin [Mass/Vol] 0.40 mg/dL 0.20-1.00 [facility] Comment on above: For patients on eltr ombopag therapy, use of Dimension [place] TBIL is not recommended. Chloride [Moles/Vol] 108 mmol/L 98-107 [facility] Cholesterol [Mass/Vol] 153 mg/dL <200 [facility] Comment on above: <200 mg/dL Desirable 200-240 mg/dL Borderline >240 mg/dL High Risk Eosinophils/100 WBC (Bld) 4.3 % 0-5 Glucose [Mass/Vol] 127 mg/dL 74-[address] [facility] Comment on above: Fasting Glucose resu lt greater than or equal to 126 mg/dL suggests DIABETES MELLITUS per A.D.A. criteria. Neutrophils (Bld) [#/Vol] 2.7 10*3/uL 2.0-7.7 Neutrophils/100 WBC (Bld) 59.4 % 47-70 Potassium [Moles/Vol] 3.9 mmol/L 3.5-5.1 [facility] Protein [Mass/Vol] 7.1 g/dL 6.4-8.[address] [facility] Sodium [Moles/Vol] 142 mmol/L 136-[address] [facility] Triglyceride [Mass/Vol] 223 mg/dL <199 Comment on above: The drugs N-Acetylcy steine and Metamizole may falsely depress this assay.Serum Triglycerides Reference Interval Normal <150 mg/dL Borderline high 150 - 199 mg/dL High 200 - 499 mg/dL Very High > or = 500 mg/dL WBC (Bld) [#/Vol] 4.6 10*3/uL 4.4-11.[address] [facility] Blood erythrocytes count (nu mber/volume)Ordered By: Skinny London on 11-26-2022 RBC (Bld) [#/Vol] 4.17 10*6/uL 4.2-5.4 [facility] Blood hemoglobin measurement (mass/volume)Ordered By: Skinny London on 11-26-2022 Hemoglobin (Bld) [Mass/Vol] 13.0 g/dL 12.0-15.0 Blood lymphocytes/100 leukoc ytesOrdered By: Skinny London on 11-26-2022 Lymphocytes/100 WBC (Bld) 25.3 % 19-41 Blood monocytes/100 leukocyt esOrdered By: Skinny London on 11-26-2022 Monocytes/100 WBC (Bld) 9.5 % 0-10 Blood platelet mean volumeOr dered By: Skinny London on 11-26-2022 Platelet mean volume (Bld) [Entitic vol] 9.7 fL 6.2-12.0 Determination of erythrocyte mean corpuscular volume (MCV)Ordered By: Skinny London on 11-26-2022 MCV (RBC) [Entitic vol] 94.0 fL 81-99 Hematocrit Auto (Bld) [Volum e fraction]Ordered By: Skinny London on 11-26-2022 Hematocrit (Bld) [Volume fraction] 39.2 % 37-47 Laboratory - Chemistry and C hemistry - challengeOrdered By: Skinny London on 11-26-2022 ALP [Catalytic activity/Vol] 65 U/L 45-117 ALT [Catalytic activity/Vol] 40 U/L 13-56 CO2 [Moles/Vol] 28.0 mmol/L 21.0-32.0 Globulin (S) [Mass/Vol] 3.3 g/dL 2.2-4.2 Urea nitrogen/Creatinine [Mass ratio] 13.9 mg/mg 10-20 Laboratory - Hematology and Cell countsOrdered By: Skinny London on 11-26-2022 Erythrocyte distribution width (RBC) [Entitic vol] 44.0 fL 35.1-43.9 Erythrocyte distribution width (RBC) [Ratio] 12.8 % 11.6-14.6 Immature granulocytes/100 WBC (Bld) 0.200 % 0.0-0.9 Comment on above: IG% - Immature Granu locytes (promyelocytes, myelocytes and metamyelocytes) > 1% indicates that a LEFT SHIFT is Present. MCH (RBC) [Entitic mass] 31.2 pg 27.0-32.0 Nucleated RBC/100 WBC (Bld) [Ratio] 0.6 % 0-5 MCHC Auto (RBC) [Mass/Vol]Or dered By: Skinny London on 11-26-2022 MCHC (RBC) [Mass/Vol] 33.2 g/dL 32-36 [facility] No Panel InformationOrdered By: Skinny London on 11-26-2022 Estimated GFR (MDRD) Amer 70 mL/min >60 Comment on above: GFR Calc Estimated GFR (MDRD) Non-Af Amer 58 mL/min >60 Comment on above: Non- GFR Calc Thyroid Stimulating Hormone (TSH) 3.37 uIU/mL 0.358-3.74 Platelets bldOrdered By: Abebe London on 11-26-2022 Platelets (Bld) [#/Vol] 280 10*3/uL 150-450 Serum or plasma albumin bibi urement (mass/volume)Ordered By: Skinny London on 11-26-2022 Albumin [Mass/Vol] 3.8 g/dL 3.2-5.[address] [facility] Serum or plasma albumin/glob ulin mass ratioOrdered By: Skinny London on 11-26-2022 Albumin/Globulin [Mass ratio] 1.2 {ratio} 0.9-2.4 Serum or plasma calcium bibi urement (mass/volume)Ordered By: Skinny Lnodon on 11-26-2022 Calcium [Mass/Vol] 8.7 mg/dL 8.5-10.[address] [facility] Serum or plasma cholesterol in HDL measurement (mass/volume)Ordered By: Skinny London on 11-26-2022 Cholesterol in HDL [Mass/Vol] 57 mg/dL >40 Comment on above: The drugs N-Acetylcy steine and Metamizole may falsely depress this assay. Reference Range HDL <40 mg/dL Low HDL Cholesterol HDL >or= 60 mg/dL High HDL Cholesterol Serum or plasma cholesterol in VLDL measurement (mass/volume)Ordered By: Skinny London on 11-26-2022 Cholesterol in VLDL [Mass/Vol] 45 mg/dL 5-40 Serum or plasma creatinine m easurement (mass/volume)Ordered By: Skinny London on 11-26-2022 Creatinine [Mass/Vol] 1.01 mg/dL 0.55-1.02 [facility] Comment on above: The validity of the calculated GFR & GFRAA in patients over 70 years has not been determined. Clinical correlation is essential. Serum or plasma low density lipoprotein (LDL) cholesterol measurement (mass/volume)Ordered By: Skinny London on 11-26-2022 Cholesterol in LDL [Mass/Vol] 51 mg/dL 0-130 Serum or plasma urea nitroge n measurement (mass/volume)Ordered By: Skinny London on 11-26-2022 Urea nitrogen [Mass/Vol] 14 mg/dL 7-18 Thin prep Papanicolaou smear with manual screeningOrdered By: Skinny London on 11-26-2022 Thin prep Papanicolaou smear with manual screening 21 U/L 15-37 Thin prep Papanicolaou smear with manual screening 6 5-15 CT Low Dose Lung Diagnostico n 07-25-2022 CT Low Dose Lung Diagnostic Patient Name: SHINE MIN Computed Tomography ACCESSION EXAM DATE/TIME PROCEDURE ORDERING PROVIDER [id number] 07/25/2022 08:[address] Low Dose Thorax w/o [id number] -MALISSA PRABHAKAR Cont CPT code 62719 Reason For Exam (CT Low Dose Thorax w/o Cont) LEFT LOWER LOBE LUNG NODULE Report DIAGNOSTIC CT CHEST WITHOUT CONTRAST: CLINICAL INDICATION: Follow-up for enlarging left upper lobe pulmonary nodule TECHNIQUE: Low dose transaxial sequence through the chest from apices through the bases with low-dose technique with 1 mm reconstruction. Sagittal and coronal reconstructions included. COMPARISON: 08/09/2021 FINDINGS: Limitations: No significant. Heart/mediastinum: Heart size is within normal limits. Tortuosity of the thoracic aorta which is normal in caliber. Scant atherosclerotic calcifications. Pulmonary trunk is normal in caliber. No suspicious bulky axillary adenopathy. Lungs/pleura: Lungs appear hyperinflated. 1.1 cm subpleural nodule inferior aspect of the left upper lobe series 3 image 132, unchanged from prior CT. Large hiatal hernia with atelectasis/scarring involving the medial right and left lower lobe. No consolidation, pleural effusions, or pneumothorax. Central tracheobronchial tree appears patent. Upper abdomen: There may be some degree of hepatic steatosis. Hypodensity in the left hepatic lobe is unchanged. Spleen appears within normal limits as does the visualized pancreas. No discrete mass or nodule within the visualized adrenal glands. Scant atherosclerotic calcifications within the visualized abdominal aorta Osseous structures/soft tissues : Multilevel degenerative spondylosis in the visualized spine. No suspicious bulky axillary adenopathy. Additional findings: No significant. IMPRESSION: 1. Unchanged 1.1 cm nodule left upper lobe unchanged from prior CT chest. This demonstrated minimal FDG uptake on PET CT suggesting benignity. 2. No new suspicious pulmonary nodules. Computed Tomography Report 3. Large hiatal hernia. ASSESSMENT CATEGORY (version 1. - 2019): Lung-RADS Assessment Category 2 - Benign appearance or behavior. Recommend continued annual low-dose screening CT in 12 months.. Report Dictated on Final Dictated: 07/27/2022 5:24 pm Dictating Physician: MD STONE VLADIMIR Signed Date and Time: 07/27/2022 5:45 pm Signed by: MD STONE VLADIMIR Transcribed Date and Time: 07/27/2022 5:24 Normal [facility] MG Breast Tomosynthesis Scr Blon 04-18-2022 MG Breast Tomosynthesis Scr Bl Patient Name: SHINE MIN Mammography ACCESSION EXAM DATE/TIME PROCEDURE ORDERING PROVIDER [id number] 04/18/2022 09:15 EDT MG Breast Tomosynthesis MD DICK, TYLER BI Scr CPT code 18418 57923 Reason For Exam (MG Breast Tomosynthesis BI Scr) screening Report TIME SINCE LAST MAMMOGRAM: Last mammogram was performed 1 year and 7 months ago. REASON FOR EXAM: screening, asymptomatic. PROCEDURE: MG BREAST TOMOSYNTHESIS BL SCR: APRIL 18, 2022 - 2D/3D Procedure 3D Bilateral CC and MLO view(s) were taken. 2D Bilateral CC and MLO view(s) were taken. Prior study comparison: September 17, 2020, bilateral MG breast tomosynthesis bl scr performed at [facility]. September 14, 2019, bilateral MG breast tomosynthesis bl scr performed at [facility]. August 17, 2018, bilateral MG breast tomosynthesis bl scr performed at [facility]. TISSUE DENSITY: BIRADS B - There are scattered fibroglandular densities. . PATIENT CANCER HISTORY: Self Cervical Cancer age 63 FAMILY CANCER HISTORY: Father Lung Cancer age 61 Paternal Aunt Pancreatic Cancer age 65 Paternal Uncle Lung Cancer age 65 FINDINGS: No suspicious masses, architectural distortions or suspiciously clustered microcalcifications are identified. There is no evidence of skin thickening or nipple retraction. There are no significant changes when compared with prior studies. No mammographic evidence of malignancy. Markings on images: BB's = Nipples; skin lesions Open napaimute = Palpable Line = Scar 2D digital mammography and tomosynthesis imaging were performed and reviewed with CAD. Mammography Report ASSESSMENT: Category 1 Negative RECOMMENDATION: Routine screening mammogram of both breasts in 1 year. . Report Dictated on Cancer Risk Assessment: This risk assessment is based on patient provided information collected in a risk survey taken at the time of this examination. Lifetime breast cancer risk: Average Risk - If greater than or equal to 20%, consider annual mammogram and annual screening Breast MRI or follow up in high risk clinic. A score of Average Risk indicates a score of less than 20%. Is the patient at elevated risk based on the HBOC criteria? No (Hereditary Breast and Ovarian Cancer) - If yes, consider genetic counseling and testing with high risk follow up. Is the patient at elevated risk based on the Gerardo Syndrome criteria? No - If yes, consider genetic counseling and testing with high risk follow up. Final Signed Date and Time: 04/18/2022 9:31 am Signed by: MD LUIS, SAJAN [facility] [place]o [place] 04-18-2022 Patient Name: SHINE CRUZ Mammography ACCESSION EXAM DATE/TIME PROCEDURE ORDERING PROVIDER [id number] 04/18/2022 09:15 EDT MG Breast Tomosynthesis MD DICK, TYLER BI Scr CPT code 91986 28577 Reason For Exam (MG Breast Tomosynthesis BI Scr) screening Report TIME SINCE LAST MAMMOGRAM: Last mammogram was performed 1 year and 7 months ago. REASON FOR EXAM: screening, asymptomatic. PROCEDURE: MG BREAST TOMOSYNTHESIS BL SCR: APRIL 18, 2022 - 2D/3D Procedure 3D Bilateral CC and MLO view(s) were taken. 2D Bilateral CC and MLO view(s) were taken. Prior study comparison: September 17, 2020, bilateral MG breast tomosynthesis bl scr performed at [facility]. September 14, 2019, bilateral MG breast tomosynthesis bl scr performed at [facility]. August 17, 2018, bilateral MG breast tomosynthesis bl scr performed at [facility]. TISSUE DENSITY: BIRADS B - There are scattered fibroglandular densities. . PATIENT CANCER HISTORY: Self Cervical Cancer age 63 FAMILY CANCER HISTORY: Father Lung Cancer age 61 Paternal Aunt Pancreatic Cancer age 65 Paternal Uncle Lung Cancer age 65 FINDINGS: No suspicious masses, architectural distortions or suspiciously clustered microcalcifications are identified. There is no evidence of skin thickening or nipple retraction. There are no significant changes when compared with prior studies. No mammographic evidence of malignancy. Markings on images: BB's = Nipples; skin lesions Open napaimute = Palpable Line = Scar 2D digital mammography and tomosynthesis imaging were performed and reviewed with CAD. Mammography Report ASSESSMENT: Category 1 Negative RECOMMENDATION: Routine screening mammogram of both breasts in 1 year. . Report Dictated on Cancer Risk Assessment: This risk assessment is based on patient provided information collected in a risk survey taken at the time of this examination. Lifetime breast cancer risk: Average Risk - If greater than or equal to 20%, consider annual mammogram and annual screening Breast MRI or follow up in high risk clinic. A score of Average Risk indicates a score of less than 20%. Is the patient at elevated risk based on the HBOC criteria? No (Hereditary Breast and Ovarian Cancer) - If yes, consider genetic counseling and testing with high risk follow up. Is the patient at elevated risk based on the Gerardo Syndrome criteria? No - If yes, consider genetic counseling and testing with high risk follow up. --- Final --- Signed Date and Time: 04/18/2022 9:31 am Signed by: MD LUIS, Sajan Morris MD - 04/18/2022 Patient Name: SHINE MIN Mammography ACCESSION EXAM DATE/TIME PROCEDURE ORDERING PROVIDER [id number] 04/18/2022 09:15 EDT MG Breast Tomosynthesis MD DICK, TYLER BI Scr CPT code 86203 36444 Reason For Exam (MG Breast Tomosynthesis BI Scr) screening Report TIME SINCE LAST MAMMOGRAM: Last mammogram was performed 1 year and 7 months ago. REASON FOR EXAM: screening, asymptomatic. PROCEDURE: MG BREAST TOMOSYNTHESIS BL SCR: APRIL 18, 2022 - 2D/3D Procedure 3D Bilateral CC and MLO view(s) were taken. 2D Bilateral CC and MLO view(s) were taken. Prior study comparison: September 17, 2020, bilateral MG breast tomosynthesis bl scr performed at [facility]. September 14, 2019, bilateral MG breast tomosynthesis bl scr performed at [facility]. August 17, 2018, bilateral MG breast tomosynthesis bl scr performed at [facility]. TISSUE DENSITY: BIRADS B - There are scattered fibroglandular densities. . PATIENT CANCER HISTORY: Self Cervical Cancer age 63 FAMILY CANCER HISTORY: Father Lung Cancer age 61 Paternal Aunt Pancreatic Cancer age 65 Paternal Uncle Lung Cancer age 65 FINDINGS: No suspicious masses, architectural distortions or suspiciously clustered microcalcifications are identified. There is no evidence of skin thickening or nipple retraction. There are no significant changes when compared with prior studies. No mammographic evidence of malignancy. Markings on images: BB's = Nipples; skin lesions Open napaimute = Palpable Line = Scar 2D digital mammography and tomosynthesis imaging were performed and reviewed with CAD. Mammography Report ASSESSMENT: Category 1 Negative RECOMMENDATION: Routine screening mammogram of both breasts in 1 year. . Report Dictated on Cancer Risk Assessment: This risk assessment is based on patient provided information collected in a risk survey taken at the time of this examination. Lifetime breast cancer risk: Average Risk - If greater than or equal to 20%, consider annual mammogram and annual screening Breast MRI or follow up in high risk clinic. A score of Average Risk indicates a score of less than 20%. Is the patient at elevated risk based on the HBOC criteria? No (Hereditary Breast and Ovarian Cancer) - If yes, consider genetic counseling and testing with high risk follow up. Is the patient at elevated risk based on the Gerardo Syndrome criteria? No - If yes, consider genetic counseling and testing with high risk follow up. --- Final --- Signed Date and Time: 04/18/2022 9:31 am Signed by: MD LUIS, SAJAN BARR Work Phone: Radiology Study observation (narrative) [facility] Work Phone: [facility] Bila teralOrdered By: Sajan Malin on [facility] Skull Base to Midthighon 09-13-2021 PT w/ CT Scan Skull Base to Midthigh [facility]: [id number] ACCESSION EXAM DATE/TIME PROCEDURE ORDERING PROVIDER [id number] 09/13/2021 16:19 EDT PT w/ CT Scan Skull Base MD DICK, TYLRE to [facility] CPT code 78520 A9552 Reason For Exam (PT w/ CT Scan Skull Base to [facility]) Abnormal CT chest, lung nodule increasing in size. History of cervical cancer. Report PET/CT CLINICAL INDICATION: SPN, history of cervical cancer Following the intravenous administration of 13 mCi of fluorine-18 fluorodeoxyglucose (FDG) a PET scan of the torso was acquired after an approximately one hour delay. Blood glucose level at the time of injection was 114 mg/dl. Contemporaneously, noncontrast axial CT images were obtained using low dose technique. The images were reconstructed in three orthogonal planes and digitally coregistered. The CT data was used for attenuation correction as well. COMPARISON: CT chest dated 08/09/2021 NECK AND CHEST: The streaky noncalcified nodule within the periphery of the left upper lobe noted on the CT from 08/09/2021 demonstrates minimal FDG uptake (maximal SUV 0.9), most consistent with a benign etiology. No additional pulmonary nodules are identified. There is no FDG avid lymphadenopathy within the neck or chest. On the low-dose CT images, note is made of a large hiatal hernia. There is intense, diffuse FDG accumulation throughout both lobes of the thyroid gland. ABDOMEN AND PELVIS: No abnormal FDG accumulation is seen within the abdomen or pelvis. There is a small cyst within the left hepatic lobe. MUSCULOSKELETAL: Unremarkable. No evidence of osseous metastatic disease. IMPRESSION: Streaky noncalcified nodule within the left upper lobe noted on the prior CT of the chest demonstrates minimal FDG uptake, most consistent with a benign etiology. Routine CT follow-up is recommended to ensure stability. PET Report Intense, diffuse FDG accumulation throughout the thyroid gland. This is nonspecific, however most commonly seen in the setting of thyroiditis. Report Dictated on Final Dictated: 09/16/2021 8:35 am Dictating Physician: MD AARON JONATHAN R Signed Date and Time: 09/16/2021 8:45 am Signed by: MD AARON JONATHAN R Transcribed Date and Time: 09/16/2021 8:35 Normal [facility] CT Chest w/o Contraston - CT Chest w/o Contrast Patient Name: SHINE PASCUAL Computed Tomography ACCESSION EXAM DATE/TIME PROCEDURE ORDERING PROVIDER [id number] 08/09/2021 09:[address] Thorax w/o Contrast MD BANERJEE ROBIN CPT code 39888 Reason For Exam (CT Thorax w/o Contrast) Lung nodule seen on outside CT 11/2021 - 8mm lung nodule. Follow up in 6-12 months suggested. Addendum Outside hospital scanned in report from November 30, 2020 was reviewed. No images are available for comparison, however, this does not change the impression nor the provided recommendations. Report Dictated on Final Addendum Dictated: 08/23/2021 2:45 pm Addendum Dictating Physician: MD QUEEN CHRISTOPHER Signed Date and Time: 08/23/2021 2:48 pm Signed by: MD QUEEN CHRISTOPHER Transcribed Date and Time: 08/23/2021 2:45 Report EXAMINATION: CT of the chest without intravenous contrast. EXAM DATE and TIME: 08/09/2021 9:20 AM EDT INDICATION: Lung nodule seen on outside CT 11/2021 - 8mm lung nodule. Follow up in 6-12 months suggested. ADDITIONAL INFORMATION: 70-year-old female with a lung nodule seen on an outside hospital CT presents for follow-up COMPARISON: CT chest abdomen pelvis dated 01/29/[address] chest abdomen pelvis dated 05/28/2015 LIMITATIONS: Evaluation of the vasculature and solid viscera is limited due to the lack of intravenous contrast. TECHNIQUE: [address] images were obtained of the chest. Images were reformatted in coronal and sagittal projections using the raw CT data and were interpreted in conjunction with the axial images to render the findings listed below. FINDINGS: Cardiovascular: Atherosclerotic vascular calcifications are present in the thoracic aorta. Mediastinum/pericardium : Unremarkable. Computed Tomography Report Thyroid: Unremarkable. Central airways: Widely patent. Pleura: No pleural effusion or pneumothorax. Lungs: There is mild centrilobular emphysema. No focal consolidation. Nodules: There is a 1.1 x 0.8 cm nodule in the inferolateral aspect of the left upper lobe on series 3, image 155 which has demonstrated interval increase in size compared to 2015 at which point in time it measured 0.6 cm. Lymph nodes: No emerging adenopathy. Visualized musculoskeletal structures: There is multilevel spondylosis. No acute osseous abnormality is demonstrated. Included images of the upper abdomen: There is a moderate-sized hiatal hernia. IMPRESSION: 1. Pulmonary nodule in the inferolateral aspect of the left upper lobe has demonstrated interval increase in size compared to 2015. Based on the 2020 ACR white paper on managing incidental findings on thoracic CT, consider follow-up low-dose CT of the chest at three months or PET/CT and/or tissue sampling. 2. Moderate-sized hiatal hernia. A notification was communicated to TYLER BANERJEE via the [employer] value Critical Result system on 08/23/2021 8:16 AM EDT, Message ID [id number]. Report Dictated on Final Dictated: 08/23/2021 8:04 am Dictating Physician: MD QUEEN CHRISTOPHER Signed Date and Time: 08/23/2021 8:16 am Signed by: MD QUEEN CHRISTOPHER Transcribed Date and Time: 08/23/2021 8:04 Report last revised on 08/23/2021 14:48 EDT by MD QUEEN CHRISTOPHER [facility] CNNURSE Nurse Visit (DEBORAH) SHINE MIN ([id number]) 1950 F Date Time Provider Department 02/19/21 IKE MEANS, ASHLEY CABRERA During your visit today, we recorded the following information about you: Allergies As of Date: 02/19/2021 Noted Allergy Reaction PENICILLINS 06/08/2018 16 - Unknown CJHJIAK-CHS-JRO REDUCTASE INHIBIT*06/08/2018 16 - Unknown SULFA (SULFONAMIDE ANTIBIOTICS) 06/08/2018 16 - Unknown Date Reviewed: 12/03/2020 Reviewed by: Lissette Dior) CAMERON Bates - Fully Assessed Order(s):[place] SARS-COV-2 VACCINE 2D DOSE APPT [[id number]] Order #: [id number] Prescriptions as of 02/19/2021 Sig: PANTOPRAZOLE 40 MG TABLET,DEL* Take 1 tablet by mouth DAILY * LEVOTHYROXINE ORAL Take by mouth. LISINOPRIL 20 MG-HYDROCHLOROT* Take 1 tablet by mouth once d* ZETIA ORAL Take by mouth. ATORVASTATIN ORAL Take by mouth. IRON 100 PLUS ORAL Take by mouth. NIACIN ER 500 MG TABLET,EXTEN* Take 500 mg by mouth twice da* Problem List As Of Date 02/19/2021 Noted Resolved Presbyopia [H52.4] 06/08/2018 Symptomatic anemia [D64.9] 12/01/2020 Acute renal insufficiency [N28.9] 12/01/2020 Myalgias [M79.10] 12/01/2020 Exertional dyspnea [R06.00] 12/01/2020 Elevated d-dimer [R79.89] 12/01/2020 Encounter Status:Open [facility] ANES POSTPROC EVALon 021 ANES POSTPROC EVAL HNO ID: [id number] Author: Cesar Wise Service: ? Author Type: Physician Type: Anesthesia Postprocedure Evaluation Filed: 12/03/2020 10:51 AM Note Text: POST ANESTHESIA EVALUATION NOTE : 1950 Procedure Summary Date: 12/03/20 Room / Location: [facility] ENDO B / [facility] ENDO Anesthesia Start: 950 Anesthesia Stop: 1010 Procedure: EGD WITH BIOPSY (N/A Abdomen) Diagnosis: Iron deficiency anemia Surgeons: Sebastian Matos Responsible Provider: Cesar Wise Anesthesia Type: MAC ASA Status: 3 Anesthesia Type: MAC Last vitals Vitals Value Taken Time BP 125/62 12/03/20 1030 Temp 37 12/03/20 1051 Pulse 78 12/03/20 1043 Resp 17 12/03/20 1043 SpO2 99 % 12/03/20 1043 Vitals shown include unvalidated device data. Post Anesthesia Patient Status Patient Evaluation: PACU. PACU/ICU Patient Condition: stable. Anticipated Disposition: inpatient floor planned admission. Neurological Status: aware and responsive. Pulmonary Status: breathing comfortably on room air Airway Control: returned to baseline unsupported. Cardiovascular Status: stable. Pain Management: clinically adequate - multimodal analgesia pain management approach Postoperative Hydration: acceptable. Intraoperative Events: no significant anesthesia events Post Operative Nausea/Vomiting Status: Anesthetic Observations: no significant anesthetic observations Recommendation: continue current plan of care and further care per PACU/ICU/floor team. SIGNATURE: Cesar Wise MD PATIENT NAME: Shine Min DATE: December 03, 2020 TIME: 10:51 AM CSN: [id number] [facility] ANES PRE-OPon 12-03-2020 ANES PRE-OP HNO ID: [id number] Author: Cesar Wise Service: ? Author Type: Physician Type: Anesthesia Preprocedure Evaluation Filed: 12/03/2020 9:22 AM Note Text: ANESTHESIOLOGY DAY OF SURGERY NOTE : 1950 Procedure(s) (LRB): EGD (N/A) Surgeon(s): Sebastian Matos Estimated body mass index is 38.45 kg/m? as calculated from the following: Height as of this encounter: 152.4 cm (5'). Weight as of this encounter: 89.3 kg (196 lb 13.9 oz). Most recent hematocrit and potassium results: Hematocrit 29.5 12/03/2020 Potassium 4.3 12/03/2020 Relevant Problems CARDIO (+) Exertional dyspnea -RENAL (+) Acute renal insufficiency PULMONARY (+) Exertional dyspnea I - PHYSICAL EVALUATION AIRWAY Patient intubated: No. Tracheostomy tube not present Mallampati: III. TM distance: >3 FB. Neck ROM: full ROM without neurological symptoms. Mouth opening: adequate. Additional exam findings: no II - ANESTHESIA PLAN ASA Score: 3 Anesthetic Plan: MAC NPO Status: adequate Monitoring plan: standard ASA. Postoperative analgesic plan: parenteral or oral opioids and multimodal analgesia. Anesthetic Risks, Benefits, Alternatives, Personnel Discussed. Consent obtained from: patient. Patient / Surrogate agrees to blood products: blood products not planned Significant changes in the patient condition since the History and Physical, not otherwise documented in primary service progress note: no. Vitals Value Taken Time BP 111/65 12/03/20737 Pulse 69 12/03/20737 Resp 18 12/03/20737 Temp 36.7 ?C (98.1 ?F) 12/03/20737 SpO2 97 % 12/03/20737 Facility-Administered Medications as of 12/03/2020 Medication Dose Route Frequency - acetaminophen 650 mg tab(s) (TYLENOL) 650 mg ORAL q 4 H PRN - niacin ER 500 mg tab(s) (NIASPAN) 500 mg ORAL BID w MEALS - levothyroxine 75 mcg tab(s) (SYNTHROID) 75 mcg ORAL DAILY (6 AM) - ezetimibe 10 mg tab(s) (ZETIA) 10 mg ORAL DAILY - sodium chloride 0.9 % (flush) 3-5 mL (BD POSIFLUSH) 3-5 mL INTRAVENOUS q 12 H - lisinopril 20 mg tab(s) (ZESTRIL, PRINIVIL) 20 mg ORAL DAILY - pantoprazole DR 40 mg tab(s) (PROTONIX) 40 mg ORAL DAILY (6 AM) - ferric gluconate 125 mg in NaCl 0.9% 100 mL (FERRLECIT) 125 mg INTRAVENOUS DAILY AT 6 PM - docusate sodium 100 mg cap(s) (COLACE) 100 mg ORAL BID PRN - [COMPLETED] NaCl 0.9% 1,000 mL iv bolus 1,000 mL INTRAVENOUS ONCE - [COMPLETED] enoxaparin 90 mg injection (LOVENOX) 1 mg/kg/dose SUBCUTANEOUS ONCE Outpatient Medications as of 12/03/2020 Medication Sig - levothyroxine sodium (LEVOTHYROXINE ORAL) Take by mouth. - lisinopril-hydrochlorot hiazide (PRINZIDE,ZESTORETIC) 20-12.5 mg per tablet Take 1 tablet by mouth once daily. - ezetimibe (ZETIA ORAL) Take by mouth. - aspirin, enteric coated (ASPIRIN, ENTERIC COATED) 81 mg EC tablet Take 81 mg by mouth once daily. - niacin ER (NIASPAN) 500 mg tablet Take 500 mg by mouth twice daily with meals. - atorvastatin calcium (ATORVASTATIN ORAL) Take by mouth. - iron,carb/vit C/vit B12/folic (IRON 100 PLUS ORAL) Take by mouth. I have interviewed and examined the patient. I have reviewed the medical record and/or the pre-anesthesia evaluation, pertinent labs, and test results. This contains updated information obtained within 48 hours of Surgery/Procedure. SIGNATURE: Cesar Wise MD PATIENT NAME: Shine Min DATE: December 03, 2020 TIME: 9:22 AM CSN: [id number] Normal [facility] CASE MANAGEMon 12-03-2020 CASE MANAGEM HNO ID: [id number] Author: Tate Gutiérrez (Sw) Service: ? Author Type: Sleeve Turner Type: Care Mgt Progress Note Filed: 12/03/2020 12:57 PM Note Text: CARE MANAGEMENT DISCHARGE NOTE SERVICE DATE: 12/03/2020 SERVICE TIME: 12:55 PM LOS: 2 days Admission Date: 11/30/2020 DISCHARGE ARRANGEMENT (list agency and phone number) Discharge Arrangement: Home Provider Name: N/A Phone: N/A CAREGIVER ASSESSMENT: Caregiver is ready, willing and able to meet the patient's needs as recommended by the inter-professional team:: No Caregiver needed Does the patient have an acute stroke diagnosis, or has the patient had a stroke during this admission?: No Patient's transition needs and plan for meeting these needs: Pt. able to meet her own basic needs. HANDOFF COMMUNICATION: Handoff to: Primary Care Physician Primary Care Physician Name/Phone: Dr. London [phone] TRANSPORTATION ARRANGEMENTS: Transportation Arrangements: Car(Son to transport home.) ADDITIONAL CONTACT RESOURCES: N/A Needs Prior to Discharge: None;Ready for Discharge Pt. Will discharge home today w/basic needs. Pts. Son will transport her home. CM assigned will continue to follow for discharge planning needs. SIGNATURE: Tate Gutiérrez ABSTRACT CLERK, KNIFE CUTTER, LAURY-RADHA PATIENT NAME: Shine Min DATE: December 03, 2020 TIME: 12:55 PM PAGER/CONTACT #: Normal [facility] CBC and Differentialon 12-03 Abs Baso 0.04 k/uL Normal <0.11 [facility] Comment on above: Performed By: #### C BCDIF ####[facility] [address] [place] [address] Abs [place] 0.42 k/uL Normal <0.87 [facility] Comment on above: Performed By: #### C BCDIF ####[place] [address] Abs Neut 2.70 k/uL Normal 1.45-7.50 [facility] Comment on above: Performed By: #### C BCDIF ####[place] [address] Absolute nRBC <0.01 Normal <0.01 [facility] Comment on above: Performed By: #### C BCDIF ####[place] [address] Basophils/100 WBC (Bld) 1.0 % Normal [facility] Comment on above: Performed By: #### C BCDIF ####[place] [address] DTYPE Auto Diff Normal [facility] Comment on above: Performed By: #### C BCDIF ####[place] [address] Eosinophils (Bld) [#/Vol] 0.21 10*3/uL Normal <0.46 [facility] Comment on above: Performed By: #### C BCDIF ####[place] [address] Eosinophils/100 WBC (Bld) 5.1 % Normal [facility] Comment on above: Performed By: #### C BCDIF ####[place] [address] Erythrocyte distribution width (RBC) [Ratio] 18.9 % High 11.5-15.0 [facility] Comment on above: Performed By: #### C BCDIF ####[place] [address] Hematocrit (Bld) [Volume fraction] 29.5 % Low 36.0-46.0 [facility] Comment on above: Performed By: #### C BCDIF ####[place] [address] Hemoglobin (Bld) [Mass/Vol] 8.2 g/dL Low 11.5-15.5 [facility] Comment on above: Performed By: #### C BCDIF ####[place] [address] Lymphocytes (Bld) [#/Vol] 0.71 10*3/uL Low 1.00-4.00 [facility] Comment on above: Performed By: #### C BCDIF ####[place] [address] Lymphocytes/100 WBC (Bld) 17.3 % Normal [facility] Comment on above: Performed By: #### C BCDIF ####[place] [address] MCH (RBC) [Entitic mass] 21.6 pG Low 26.0-34.0 [facility] Comment on above: Performed By: #### C BCDIF ####[place] [address] MCHC (RBC) [Mass/Vol] 27.8 g/dL Low 30.5-36.0 [facility] Comment on above: Performed By: #### C BCDIF ####[place] [address] MCV (RBC) [Entitic vol] 77.6 fL Low 80.0-100.0 [facility] Comment on above: Performed By: #### C BCDIF ####[place] [address] Monocytes/100 WBC (Bld) 10.2 % Normal [facility] Comment on above: Performed By: #### C BCDIF ####[place] [address] Neutrophils/100 WBC (Bld) 66.4 % Normal [facility] Comment on above: Performed By: #### C BCDIF ####[place] [address] NRBCs 0.0 /100 WBC Normal 0 [facility] Comment on above: Performed By: #### C BCDIF ####[place] [phone] Platelet mean volume (Bld) [Entitic vol] 9.2 fL Normal 9.0-12.7 [facility] Comment on above: Performed By: #### C BCDIF ####[facility] [address] [place] [address] Platelets (Bld) [#/Vol] 282 10*3/uL Normal 150-400 [facility] Comment on above: Performed By: #### C BCDIF ####[facility] [address] [place] [address] RBC (Bld) [#/Vol] 3.80 10*6/uL Low 3.90-5.20 [facility] Comment on above: Performed By: #### C BCDIF ####[facility] [address] [place] [address] WBC (Bld) [#/Vol] 4.10 10*3/uL Normal 3.70-11.00 [facility] Comment on above: Performed By: #### C BCDIF ####[facility] [address] [place] [address] Comp Metabolic Panelon 12-03 Albumin [Mass/Vol] 3.6 g/dL Low 3.9-4.9 [facility] Comment on above: Performed By: #### C MP ####[facility] [address] [place] [address] ALP [Catalytic activity/Vol] 50 U/L Normal 34-123 [facility] Comment on above: Performed By: #### C MP ####[facility] [address] [place] [address] ALT [Catalytic activity/Vol] 10 U/L Normal 7-38 [facility] Comment on above: Performed By: #### C MP ####[facility] [address] [place] [address] Anion gap [Moles/Vol] 6 mmol/L Low 9-18 [facility] Comment on above: Performed By: #### C MP ####[facility] [address] [place] [address] AST [Catalytic activity/Vol] 17 U/L Normal 13-35 [facility] Comment on above: Performed By: #### C MP ####[facility] [address] [place] [address] Bilirubin [Mass/Vol] 0.4 mg/dL Normal 0.2-1.3 [facility] Comment on above: Performed By: #### C MP ####[facility] [address] [place] [address] Calcium [Mass/Vol] 8.9 mg/dL Normal 8.5-10.2 [facility] Comment on above: Performed By: #### C MP ####[facility] [address] [place] [address] Chloride [Moles/Vol] 108 mmol/L High 97-105 [facility] Comment on above: Performed By: #### C MP ####[facility] [address] [place] [id number] CO2 [Moles/Vol] 26 mmol/L Normal 22-30 [facility] Comment on above: Performed By: #### C MP ####[facility] [address] [place] [address] Creatinine [Mass/Vol] 1.20 mg/dL High 0.58-0.96 [facility] Comment on above: Performed By: #### C MP ####[facility] [address] [place], [place] [id number] eGFR- Amer. 54 Normal [facility] Comment on above: Performed By: #### C MP ####[facility] [address] [place], [place] [id number] GFR/1.73 sq M predicted among non-blacks MDRD (S/P/Bld) [Vol rate/Area] 45 . Normal [facility] Comment on above: Result Comment: eGFR (Estimated GFR) Units of measure: mL/min/1.73 meters squared eGFR is derived from the reexpressed MDRD Study equation using the following parameters: serum creatinine, age, gender and race. The creatinine assay has been calibrated to be traceable to IDMS. An eGFR <60 mL/min/1.73m2 for >3 months is consistent with chronic kidney disease. Refer to KDOQI guidelines for clinical interpretation. In patients with unstable renal function, e.g. those with acute kidney injury, the eGFR may not accurately reflect actual GFR. Performed By: #### C MP ####[facility] [address] [place] [address] Glucose [Mass/Vol] 85 mg/dL Normal 74-99 [facility] Comment on above: Result Comment: The [place] Diabetes Association (ADA) provides guidance for cutoff values for fasting glucose and random glucose. The ADA defines fasting as no caloric intake for at least 8 hours. Fasting plasma glucose results between 100 to 125 mg/dL indicate increased risk for diabetes (prediabetes). Fasting plasma glucose results greater than or equal to 126 mg/dL meet the criteria for diagnosis of diabetes. In the absence of unequivocal hyperglycemia, results should be confirmed by repeat testing. In a patient with classic symptoms of hyperglycemia or hyperglycemic crisis, random plasma glucose results greater than or equal to 200 mg/dL meet the criteria for diagnosis of diabetes. Reference: Standards of Medical Care in Diabetes 2016, [place] [employer] Association. Diabetes Care. 2016.39(Suppl 1). Performed By: #### C MP ####[facility] [address] [place] [address] Potassium [Moles/Vol] 4.3 mmol/L Normal 3.7-5.1 [facility] Comment on above: Performed By: #### C MP ####[facility] [address] [place] [address] Protein [Mass/Vol] 6.1 g/dL Low 6.3-8.0 [facility] Comment on above: Performed By: #### C MP ####[facility] [address] [place], [place] [address] Sodium [Moles/Vol] 140 mmol/L Normal 136-144 [facility] Comment on above: Performed By: #### C MP ####[facility] [address] [place] [address] Urea nitrogen [Mass/Vol] 13 mg/dL Normal 7-21 [facility] Comment on above: Performed By: #### C MP ####[facility] [address] [place], [place] [address] OPERATIVE NOon 12-03-2020 OPERATIVE NO HNO ID: [id number] Author: Sebastian Matos Service: ? Author Type: Physician Type: Operative Report Filed: 12/14/2020 4:36 PM Note Text: [facility] - Operative Report SHINE MIN : 1950 AGE: 70. SEX: F PATIENT TYPE: I HOSP SV: [facility] LOCATION: [facility] ATTENDING PHYSICIAN: Bebeto Crum M.D. CSN NUMBER: [id number] DATE OF SURGERY/PROCEDURE: 12/03/2020 INCISION/PROCEDURE START TIME: Scope in at 9:57. INCISION CLOSE/PROCEDURE END TIME: Scope out at 10:07. PREOPERATIVE DIAGNOSIS: Patient with anemia of undefined cause. POSTOPERATIVE DIAGNOSIS: 1. Mild duodenitis, biopsies pending. 2. Moderate antritis with antral erosions. Biopsies to rule out H pylori. 3. 8 cm hiatal hernia from 38 cm to 30 cm, complicated by Krishan erosions. Biopsy is pending. 4. Somewhat irregular GE junction without mass. Biopsies to rule out Arroyo esophagus. 5. Erythematous and nodular appearing base of tongue. SURGEON: Sebastian Matos M.D. NEIGHBORHOOD CONSERVATION OFFICER: Lissette Ortega. SURGERY/PROCEDURE: egd w bx ANESTHESIA: Monitored anesthesia care. LOG ID: [id number]. INDICATIONS: Patient with anemia of undefined cause. CONSENT: The patient described the potential risks, benefits, and alternatives to upper endoscopy with biopsy. All questions were answered and patient signed informed consent. DESCRIPTION OF PROCEDURE: The patient was placed in the left lateral decubitus position, monitored and sedated via monitored anesthesia care under direct vision and without difficulty. The upper endoscope was advanced to the second portion of the duodenum. The second portion of the duodenum appeared normal. The duodenal bulb revealed a mild erythema consistent with duodenitis. Multiple duodenal biopsies were taken to allow for histologic evaluation and to rule out giardia and celiac sprue. The scope was slowly and gently withdrawn into the stomach, which revealed a patent and normal-appearing pylorus. Forward views of the antrum revealed a mild to moderate erythema with scattered 3 mm erosions. Multiple biopsies were taken to allow for histologic evaluation and to rule out H pylori. Forward views of the body of the stomach were normal. Retroflexed views of the cardia and fundus revealed a large hiatal hernia and several Krishan erosions, but no other mucosal abnormalities. The Krishan erosions were biopsied. The scope was then slowly and gently withdrawn into the esophagus, which revealed a 38 cm diaphragmatic hiatus and a 30 cm initiation of the tubular esophagus consistent with an 8 cm hiatal hernia. The mucosa within the hiatal hernia was normal. The GE junction was minimally irregular. Biopsies were taken to rule out Arroyo esophagus. There was no mass lesion. The remainder of the esophagus appeared entirely normal. On initial passage of the scope, it was noted that the patient had an erythematous and somewhat nodular base of the tongue. I wanted to investigate this area in more detail on completion of the endoscopy. However, the patient was becoming somewhat restless and moving with eyes open and I therefore was unable to investigate this area in no further detail and completion of the scope and removal of the bite block by nursing and anesthesia staff was noted. 3 teeth had become dislodged. There was no traumatic encounter with the scope throughout this entire procedure. In every other regard, the patient tolerated the procedure well. POSTOP PLAN: 1. Await biopsy results. 2. Limit anti-inflammatory medications. 3. Pantoprazole 40 mg b.i.d. 4. Anti-reflux lifestyle. 5. ENT consultation for evaluation of a nodular and erythematous appearing base of the tongue. 6. Colonoscopy and/or small bowel capsule endoscopy are indicated to continue evaluation of anemia. Sebastian Matos M.D. DBM:[id number] /[id number] Normal [facility] SURGICAL PATHOLOGYon 021 SURGICAL PATHOLOGY ADDENDUM PRESENT Specimen originated from [facility] Specimen #: [id number] Submitting Physician: Sebastian Matos M.D. FINAL DIAGNOSIS 1. Esophagogastric junction, biopsy (A) - Hyperplastic squamous mucosa and mildly inflamed columnar mucosa. No evidence of intestinal metaplasia or dysplasia. 2. Duodenum, biopsy (B) - Gastric surface cell metaplasia with regenerative epithelial changes. 3. Stomach, biopsy (C) - Reactive gastropathy. 4. Stomach, biopsy (D) - Erosion and changes consistent with gastropathy. ALYSIA/sarah 12/04/2020 Wallace Skaggs M.D. (Electronic Signature) SPECIMEN SUBMITTED A: ESOPHAGOGASTRIC JUNCTION, BIOPSY B: DUODENUM, BIOPSY C: GASTRIC, BIOPSY D: KRISHAN'S EROSION ADDENDUM Date Ordered: 12/12/2020 Date Reported: 12/12/2020 C, D. At the request of the clinician, immunohistochemical stains for Helicobacter pylori were performed on parts C and D, both of which were found to be negative. ALYSIA/mandie 12/12/2020 Addendum Comment Laboratory Developed Test (LDT) Disclaimer: Positive and negative controls stain appropriately. Performance characteristics of immunohistochemical, immunofluorescent and chromogenic in-situ hybridization tests have been determined by [facility]'s [facility] Medicine [place] ([facility]) in a manner consistent with CLIA requirements. One or more of these tests have not been cleared or approved by the FDA. [facility] is regulated under CLIA as qualified to perform high-complexity testing. These tests are used for clinical purposes. They should not be regarded as investigational or for research. Addendum Pathologist: Wallace Skaggs M.D. Electronic Signature CLINICAL DATA ANEMIA, LMP: MENOPAUSAL A: R/O ARROYO'S B: R/O SPRUE, MILD DUODENITIS C: R/O H. PYLORI GROSS DESCRIPTION A. Received in formalin are multiple pieces of reddish mccrary, soft tissue aggregating to 0.9 x 0.2 x 0.2 cm. Totally submitted in one cassette. B. Received in formalin are multiple pieces of reddish mccrary, soft tissue aggregating to 0.9 x 0.3 x 0.2 cm. Totally submitted in one cassette. C. Received in formalin are multiple pieces of mccrary-pink, soft tissue aggregating to 1.0 x 0.2 x 0.2 cm. Totally submitted in one cassette. D. Received in formalin are multiple pieces of mccrary-pink, soft tissue aggregating to 1.3 x 0.2 x 0.2 cm. Totally submitted in one cassette. Gross examination performed at [facility], [address] [place] [address] KVS 12/03/2020 6:47:08 PM Date of Report: 12/04/2020 Date of Procedure: 12/03/2020 Date of Receipt: 12/03/2020 Submitted by: Sebastian Matos M.D. Location: 2 S Diagnostic interpretation performed at [facility], [address] [place] [address]. [place] Number: [id number] [facility] [address] [facility] HNO ID: [id number] Author: Amber Gonzales (Msw) Service: Care Management Author Type: Sleeve Turner Type: Care Mgt Initial Assessment Filed: 12/02/2020 10:33 AM Note Text: CARE MANAGEMENT: ASSESSMENT AND DISCHARGE PLAN SERVICE DATE: December 02, 2020 SERVICE TIME: 10:20am PRIMARY CARE PHYSICIAN: Skinny London NP (confirmed with pt) ADMISSION STATUS: Inpatient Needs Prior to Discharge: To Be Determined;Other: See Comment(medical clearance) [place] Patient/Tracer Lathe Set Up Operator Stated Goals: To have reduction in symptoms;To return home to life as it was Health Insurance: [facility] Health Issues Impacting Discharge Plan: Uncontrolled;Chronic Uncontrolled: abd pain/back pain; anemia Chronic: HTN, GERD, HLD, cervical cancer hx Last Discharge Date: N/A Is this Within the Past 30 days? Last discharge within 30 days: No Advance Directive: Current Advance Directive: None Electronic Musical Instrument Repairer Attempted to Assist with AD Completion: Yes Action: Education Provided;Other: See Comment(blank packet given to pt to review) Health LiteracyHow often do you need to have someone help you when you read instructions, pamphlets, or other written material from your doctor or pharmacy? : 1 - Never How confident are you filling out medical forms by yourself?: 1 - Extremely If Patient scores > 3 on either question, the following interventions were put into place:: Patient did not score > 3 on either question. Baseline Mental Status Prior to this Illness what was the patient's Baseline Mental Status?: Alert AND Oriented Prior to this illness, has anyone described the patient having any of the following behaviors?: Not Applicable Relationship of the informant to the patient:: Self Functional Status: Independent Does Patient Currently Receive Any Community Services or Home Care?: None Equipment Prior to Admission: None Has the Patient Been in a Senior Care Facility in the Past 30 days?: No SOCIAL: Living Arrangements: Home Lives With: Spouse Financial Resources: Retired Primary Contact: Extended Emergency Contact Information Primary Emergency Contact: Chele Min Address: [address] [place] [address] Mobile Relation: Spouse Secondary Emergency Contact: Bk Min Mobile Relation: Son Supportive Patient Contact:: Yes Contact Resources: Family Family Name/Phone: Chele [phone] and sons Caregiver AssessmentCaregiver is ready, willing and able to meet the patient's needs as recommended by the inter-professional team:: No Caregiver needed Does the patient have an acute stroke diagnosis, or has the patient had a stroke during this admission?: No Patient's transition needs and plan for meeting these needs: return home self care Patient's perception of need for this admission: back/shoulder pain Medication Adherance I am convinced of the importance of my prescription medication: 0 - Agree Completely I worry that my prescription medication will do more harm than good to me : 0 - Disagree Completely I feel financially burdened by my xda-[id number] expenses for my prescription medication:: 0 - Disagree Completely Risk Score: 0 Patient is categorized as: Low risk < 2 Are you interested in bedside delivery of your medications? No - [facility] Luis Eduardo Simons Is Patient Psychosocially Complex?: No ASSESSMENT AND PLAN: Medical Needs: Medical Needs: Two or more chronic diseases Psychosocial Needs: Psychosocial Needs: None FREEDOM OF CHOICE EXPLAINED: [place] of Choice Given: No Reason Not Given: Unable to complete with this assessment - revisit POTENTIAL TRANSITION PLANS Home;To Be Determined CMSW met with pt at bedside to complete assessment. Pt reports to be IPTA. No DME or services. Lives at home with . EGD planned for Thursday morning. Pt does not anticipate any needs at dc. Son likely to provide dc transport. CM team will continue to follow. SIGNATURE: Amber Gonzales MSW, KNIFE CUTTER PATIENT NAME: Shine Min DATE: December 02, 2020 TIME: 10:32 AM PAGER/CONTACT #: [phone] Normal [facility] CBC and Differentialon 12-02 Abs Baso 0.04 k/uL Normal <0.11 [facility] Comment on above: Performed By: #### C BCDIF ####[facility] [address] [place] [address] Abs [place] 0.48 k/uL Normal <0.87 [facility] Comment on above: Performed By: #### C BCDIF ####[facility] [address] [place] [address] Abs Neut 2.79 k/uL Normal 1.45-7.50 [facility] Comment on above: Performed By: #### C BCDIF ####[place] [address] Absolute nRBC <0.01 Normal <0.01 [facility] Comment on above: Performed By: #### C BCDIF ####[place] [address] Basophils/100 WBC (Bld) 1.0 % Normal [facility] Comment on above: Performed By: #### C BCDIF ####[place] [address] DTYPE Auto Diff Normal [facility] Comment on above: Performed By: #### C BCDIF ####[place] [address] Eosinophils (Bld) [#/Vol] 0.15 10*3/uL Normal <0.46 [facility] Comment on above: Performed By: #### C BCDIF ####[facility] [address] [place] [address] Eosinophils/100 WBC (Bld) 3.6 % Normal [facility] Comment on above: Performed By: #### C BCDIF ####[place] [address] Erythrocyte distribution width (RBC) [Ratio] 18.6 % High 11.5-15.0 [facility] Comment on above: Performed By: #### C BCDIF ####[facility] [address] [place] [address] Hematocrit (Bld) [Volume fraction] 27.8 % Low 36.0-46.0 [facility] Comment on above: Performed By: #### C BCDIF ####[place] [address] Hemoglobin (Bld) [Mass/Vol] 8.0 g/dL Low 11.5-15.5 [facility] Comment on above: Performed By: #### C BCDIF ####[place] [address] Lymphocytes (Bld) [#/Vol] 0.64 10*3/uL Low 1.00-4.00 [facility] Comment on above: Performed By: #### C BCDIF ####[place] [address] Lymphocytes/100 WBC (Bld) 15.6 % Normal [facility] Comment on above: Performed By: #### C BCDIF ####[facility] [address] [place] [address] MCH (RBC) [Entitic mass] 22.3 pG Low 26.0-34.0 [facility] Comment on above: Performed By: #### C BCDIF ####[facility] [address] [place] [address] MCHC (RBC) [Mass/Vol] 28.8 g/dL Low 30.5-36.0 [facility] Comment on above: Performed By: #### C BCDIF ####[facility] [address] [place] [address] MCV (RBC) [Entitic vol] 77.4 fL Low 80.0-100.0 [facility] Comment on above: Performed By: #### C BCDIF ####[facility] [address] [place] [address] Monocytes/100 WBC (Bld) 11.7 % Normal [facility] Comment on above: Performed By: #### C BCDIF ####[facility] [address] [place] [address] Neutrophils/100 WBC (Bld) 68.1 % Normal [facility] Comment on above: Performed By: #### C BCDIF ####[facility] [address] [place] [address] NRBCs 0.0 /100 WBC Normal 0 [facility] Comment on above: Performed By: #### C BCDIF ####[facility] [address] [place] [address] Platelet mean volume (Bld) [Entitic vol] 9.1 fL Normal 9.0-12.7 [facility] Comment on above: Performed By: #### C BCDIF ####[facility] [address] [place] [address] Platelets (Bld) [#/Vol] 263 10*3/uL Normal 150-400 [facility] Comment on above: Performed By: #### C BCDIF ####[facility] [address] [place] [address] RBC (Bld) [#/Vol] 3.59 10*6/uL Low 3.90-5.20 [facility] Comment on above: Performed By: #### C BCDIF ####[facility] [address] [place] [address] WBC (Bld) [#/Vol] 4.11 10*3/uL Normal 3.70-11.00 [facility] Comment on above: Performed By: #### C BCDIF ####[facility] [address] [place] [address] CONSULT PROGon 12-02-2020 CONSULT PROG HNO ID: [id number] Author: Sebastian Matos Service: ? Author Type: Physician Type: Consult Progress Note Filed: 12/02/2020 8:17 AM Note Text: GASTROENTEROLOGY CONSULT PROGRESS NOTE Patient Name: Shine Min SERVICE DATE: December 02, 2020 SERVICE TIME: 8:15 AM INTERVAL HPI: improved gi status Pt feels better Hg increased to 8.1 No melena or hematochezia Stool heme neg x 2 No gi complaints PHYSICAL EXAM: Patient Vitals for the past 24 hrs: BP Temp Temp src Pulse Resp SpO2 12/02/20 0734 101/56 36.8 ?C (98.2 ?F) Oral 67 16 98 % 12/01/20 1944 121/60 37 ?C (98.6 ?F) Oral 81 18 97 % 12/01/20 1459 143/66 36.9 ?C (98.4 ?F) Oral 93 18 96 % Body mass index is 38.45 kg/m?. GENERAL:NAD EYES: No pallor. No scleral icterus LUNGS: Clear to auscultation. CARDIAC: RRR ABDOMEN: Soft, non distended. Non tender. No palpable mass or hepatosplenomegaly. Bowel sounds normal. No ascites. No guarding or rebound tenderness. DATA: CBC, Coags, BMP, Mg, Phos Recent Labs 12/02/20 0711 12/01/20 1447 12/01/20 0931 11/30/20205011/30/202050 WBC 4.11 4.52 -- -- 6.50 HB 8.0* 8.1* 8.3* < > 6.1* HCT 27.8* 28.5* -- -- 22.9* PLT 263 266 -- -- 368 NA -- -- -- -- 134* K -- -- -- -- 3.7 CHLOR -- -- -- -- 100 CO2 -- -- -- -- 22 BUN -- -- -- -- 30* CREAT -- -- -- -- 1.84* GLUC -- -- -- -- 106* CA -- -- -- -- 9.0 < > = values in this interval not displayed. Liver Function, Amylase, AND Lipase Recent Labs 11/30/202050 TPROT 7.2 ALB 4.2 ALT 13 AST 25 ALKPHOS 57 TBILI 0.2 LIPASE 59 MEDICATIONS: Current Facility-Administered Medications Medication Dose Route Frequency - niacin ER 500 mg tab(s) (NIASPAN) 500 mg ORAL BID w MEALS - levothyroxine 75 mcg tab(s) (SYNTHROID) 75 mcg ORAL DAILY (6 AM) - ezetimibe 10 mg tab(s) (ZETIA) 10 mg ORAL DAILY - sodium chloride 0.9 % (flush) 3-5 mL (BD POSIFLUSH) 3-5 mL INTRAVENOUS q 12 H - lisinopril 20 mg tab(s) (ZESTRIL, PRINIVIL) 20 mg ORAL DAILY - NaCl 0.9% iv infusion 100 mL/hr INTRAVENOUS CONTINUOUS - pantoprazole DR 40 mg tab(s) (PROTONIX) 40 mg ORAL DAILY (6 AM) - ferric gluconate 125 mg in NaCl 0.9% 100 mL (FERRLECIT) 125 mg INTRAVENOUS DAILY AT 6 PM - docusate sodium 100 mg cap(s) (COLACE) 100 mg ORAL BID PRN - acetaminophen 650 mg tab(s) (TYLENOL) 650 mg ORAL q 6 H PRN - acetaminophen 650 mg tab(s) (TYLENOL) 650 mg ORAL q 4 H PRN ASSESSMENT: Significant anemia with no clinical evidence of active bleed. PLAN: Celiac antibodies. EGD tomorrow. Monitor for bleed. SIGNATURE: Sebastian Matos MD DATE: December 02, 2020 TIME: 8:15 AM Normal [facility] Celiac Scr w Reflexon 2020 IgA [Mass/Vol] 183 mg/dL Normal 70-400 [facility] Comment on above: Performed By: #### C ELSCR ####[facility] [place], [place] [phone] Interpretation No serologic evidenc e of celiac disease. Normal No serologic evidence of celiac disease. [facility] Comment on above: Performed By: #### C ELSCR ####[facility] [place], [place] [phone] Transglutaminase IgA 4 Units Normal <20 [facility] Comment on above: Result Comment: Nega tive : < 20 Units Weak Positive : 20 - 30 Units Moderate Pos to Strong Pos: >30 Units The following results were obtained with the [employer] QUANTA Lite h-tTG IgA ANASTASIYA. h-tTG IgA values obtained with different manufacturers' assay methods may not be used interchangeably. The magnitude of the reported IgA levels cannot be correlated to an endpoint titer. Performed By: #### C ELSCR ####[facility] [place], [place] [phone] Comp Metabolic Panelon 12-02 Albumin [Mass/Vol] 3.5 g/dL Low 3.9-4.9 [facility] Comment on above: Performed By: #### C MP #### [facility] Laboratory [address] [place] [address] ALP [Catalytic activity/Vol] 50 U/L Normal 34-123 [facility] Comment on above: Performed By: #### C MP #### [facility] [address] [place] [address] ALT [Catalytic activity/Vol] 11 U/L Normal 7-38 [facility] Comment on above: Performed By: #### C MP #### [facility] [address] [place] [address] Anion gap [Moles/Vol] 5 mmol/L Low 9-18 [facility] Comment on above: Performed By: #### C MP #### [facility] [address] [place] [address] AST [Catalytic activity/Vol] 16 U/L Normal 13-35 [facility] Comment on above: Performed By: #### C MP #### [facility] [address] Bilirubin [Mass/Vol] 0.5 mg/dL Normal 0.2-1.3 [facility] Comment on above: Performed By: #### C MP #### [facility] [address] Calcium [Mass/Vol] 8.6 mg/dL Normal 8.5-10.2 [facility] Comment on above: Performed By: #### C MP #### [facility] [address] Chloride [Moles/Vol] 108 mmol/L High 97-105 [facility] Comment on above: Performed By: #### C MP #### [facility] [address] CO2 [Moles/Vol] 25 mmol/L Normal 22-30 [facility] Comment on above: Performed By: #### C MP #### [facility] [address] [facility] [phone] Creatinine [Mass/Vol] 1.18 mg/dL High 0.58-0.96 [facility] Comment on above: Performed By: #### C MP #### [facility] [address] [facility] [phone] eGFR- Amer. 55 [facility] Comment on above: Performed By: #### C MP #### [facility] [address] [place] [phone] GFR/1.73 sq M predicted among non-blacks MDRD (S/P/Bld) [Vol rate/Area] 46 . Normal [facility] Comment on above: Result Comment: eGFR (Estimated GFR) Units of measure: mL/min/1.73 meters squared eGFR is derived from the reexpressed MDRD Study equation using the following parameters: serum creatinine, age, gender and race. The creatinine assay has been calibrated to be traceable to IDMS. An eGFR <60 mL/min/1.73m2 for >3 months is consistent with chronic kidney disease. Refer to KDOQI guidelines for clinical interpretation. In patients with unstable renal function, e.g. those with acute kidney injury, the eGFR may not accurately reflect actual GFR. Performed By: #### C MP #### [facility] [address] [facility] [phone] Glucose [Mass/Vol] 91 mg/dL Normal 74-99 [facility] Comment on above: Result Comment: The [place] Diabetes Association (ADA) provides guidance for cutoff values for fasting glucose and random glucose. The ADA defines fasting as no caloric intake for at least 8 hours. Fasting plasma glucose results between 100 to 125 mg/dL indicate increased risk for diabetes (prediabetes). Fasting plasma glucose results greater than or equal to 126 mg/dL meet the criteria for diagnosis of diabetes. In the absence of unequivocal hyperglycemia, results should be confirmed by repeat testing. In a patient with classic symptoms of hyperglycemia or hyperglycemic crisis, random plasma glucose results greater than or equal to 200 mg/dL meet the criteria for diagnosis of diabetes. Reference: Standards of Medical Care in Diabetes 2016, [place] Diabetes Association. Diabetes Care. 2016.39(Suppl 1). Performed By: #### C MP #### [facility] [address] [facility] [phone] Potassium [Moles/Vol] 4.3 mmol/L Normal 3.7-5.1 [facility] Comment on above: Performed By: #### C MP #### [facility] [address] [facility] [phone] Protein [Mass/Vol] 5.9 g/dL Low 6.3-8.0 [facility] Comment on above: Performed By: #### C MP #### [facility] [address] [facility] [phone] Sodium [Moles/Vol] 138 mmol/L Normal 136-144 [facility] Comment on above: Performed By: #### C MP #### [facility] [address] [facility] [phone] Urea nitrogen [Mass/Vol] 14 mg/dL Normal 7-21 [facility] Comment on above: Performed By: #### C MP #### [facility] [address] [place] [phone] Occult Blood Diag.on 021 Occult Blood Diag. Negative Normal [facility] Comment on above: Performed By: #### O BDX ####[facility] [address] [place] [phone] Occult Blood Source: Stool Normal [facility] Comment on above: Performed By: #### O BDX ####[facility] [address] [place] [phone] PROGRESSon 12-02-2020 PROGRESS HNO ID: [id number] Author: Montez Crum V Service: General Internal Medicine Author Type: Physician Type: Progress Notes Filed: 12/02/2020 1:31 PM Note Text: .[place], [place] [address] PH: [phone] INPATIENT PROGRESS NOTES Patient Name: Shine Min :1950 Age:[age] year old female ADMISSION DATE: 11/30/2020 Date AND time of evaluation/service: December 02, 2020 TIME: 1:28 PM SERVICE:InternalMedicin e/Pulmonary/Sleep Medicine Assessment AND Plans: 1. Symptomatic severe anemia with hemoglobin of 6.1 g her hemoglobin has improved to 8 g now after she received 2 units of packed red blood cell transfusion. Patient also getting IV Ferrlecit for her iron deficiency. 2. Abnormal serum creatinine: Not have access to previous lab test reports at this time.. It could be due to her GI bleed. Patient started on IV fluids. 3. Exertional dyspnea: Probably due to her anemia 4. Right shoulder pain and back pain: Etiology remains unclear at this time. While laying in the bed, she appears fairly comfortable. INTERVAL HPI: Patient remains awake alert and comfortable. On questioning, she denies having any specific complaints or symptoms. Her hemoglobin has remained stable at 8 g after she has received 2 units of packed red blood cell transfusion. She is being followed with GI consult and the plan for EGD tomorrow. She may be able to go home after her EGD. She is also getting IV Ferrlecit for her iron deficiency. On questioning, she denies any specific complaints or symptoms. She denies any heartburn, black stool or bright red blood in the stool. PERTINENT ROS: Per HPI MEDICATIONS: Current Facility-Administered Medications Medication Dose Route Frequency - niacin ER 500 mg tab(s) (NIASPAN) 500 mg ORAL BID w MEALS - levothyroxine 75 mcg tab(s) (SYNTHROID) 75 mcg ORAL DAILY (6 AM) - ezetimibe 10 mg tab(s) (ZETIA) 10 mg ORAL DAILY - sodium chloride 0.9 % (flush) 3-5 mL (BD POSIFLUSH) 3-5 mL INTRAVENOUS q 12 H - lisinopril 20 mg tab(s) (ZESTRIL, PRINIVIL) 20 mg ORAL DAILY - NaCl 0.9% iv infusion 100 mL/hr INTRAVENOUS CONTINUOUS - pantoprazole DR 40 mg tab(s) (PROTONIX) 40 mg ORAL DAILY (6 AM) - ferric gluconate 125 mg in NaCl 0.9% 100 mL (FERRLECIT) 125 mg INTRAVENOUS DAILY AT 6 PM - docusate sodium 100 mg cap(s) (COLACE) 100 mg ORAL BID PRN - acetaminophen 650 mg tab(s) (TYLENOL) 650 mg ORAL q 4 H PRN PHYSICAL EXAM: BP 114/56 Pulse 72 Temp 36.8 ?C (98.2 ?F) (Oral) Resp 16 Ht 152.4 cm (5') Wt 89.3 kg (196 lb 13.9 oz) SpO2 98% BMI 38.45 kg/m? Awake alert oriented x3 comfortable at rest Vital signs: Stable Lungs: No wheezing or crackles noted Cardiac: Regular rate rhythm Abdomen soft nontender. Bowel sounds active Extremities: No pitting edema. Patient Vitals for the past 48 hrs: BP Temp Temp src Pulse Resp SpO2 Height Weight 12/02/20 0901 114/56 ? ? 72 ? 12/02/20 0734 101/56 36.8 ?C (98.2 ?F) Oral 67 16 98 % ? ? 12/01/20 1944 121/60 37 ?C (98.6 ?F) Oral 81 18 97 % ? ? 12/01/20 1459 143/66 36.9 ?C (98.4 ?F) Oral 93 18 96 % ? ? 12/01/20 0814 126/66 36.8 ?C (98.2 ?F) ? 77 ? 95 % ? ? 12/01/20 0728 111/55 36.7 ?C (98.1 ?F) Oral 79 16 96 % ? ? 12/01/20 0616 111/61 37 ?C (98.6 ?F) Oral 80 18 ? ? ? 12/01/20 0549 110/60 37.1 ?C (98.7 ?F) Oral 85 16 ? ? ? 12/01/20 0331 133/58 36.9 ?C (98.4 ?F) Oral 92 20 ? ? ? 12/01/20 0312 118/66 37 ?C (98.6 ?F) Oral 86 16 97 % ? ? 12/01/20 0252 ? 37.1 ?C (98.8 ?F) Oral ? 12/01/20 0248 131/69 ? ? 94 20 95 % ? ? 12/01/20 0225 ? 152.4 cm (5') 89.3 kg (196 lb 13.9 oz) 12/01/20 0157 111/79 37.1 ?C (98.8 ?F) Oral 98 18 98 % ? ? 12/01/20 0130 ? 96 % ? ? 12/01/20 0100 120/62 ? ? 84 19 96 % ? ? 12/01/20 0000 128/69 ? ? 84 22 97 % ? ? 11/30/20 2300 137/67 ? ? (!) 92 19 97 % ? ? 11/30/205 137/70 ? ? 90 18 98 % ? ? 11/30/201948 ? 36.9 ?C (98.5 ?F) Oral ? 11/30/201946 173/75 ? ? (!) 107 20 99 % ? 89.8 kg (198 lb) Body mass index is 38.45 kg/m?. Intake/Output Summary (Last 24 hours) at 12/02/2020 1328 Last data filed at 12/02/2020 0800 Gross per 24 hour Intake 360 ml Output ? Net 360 ml O2 Therapy: Room Air No data recorded LABORATORY TESTS: ABG: No results for input(s): PH, PCO2, PO2, HCO3 in the last 168 hours. CBC: Recent Labs 12/02/20 0712/01/207 12/01/2031 11/30/202050 WBC 4.11 4.52 -- 6.50 HB 8.0* 8.1* 8.3* 6.1* HCT 27.8* 28.5* -- 22.9* PLT 263 266 -- 368 COAG: No results for input(s): APTT, INR in the last 168 hours. BMP: Recent Labs 12/02/20 0711/30/202050 GLUC 91 106* NA 138 134* K 4.3 3.7 CHLOR 108* 100 CO2 25 22 ANION 5* 12 BUN 14 30* CREAT 1.18* 1.84* CHEM: Recent Labs 12/02/20 0711 11/30/202050 ALB 3.5* 4.2 TPROT 5.9* 7.2 CA 8.6 9.0 HEPATIC: Recent Labs 12/02/20 0711 11/30/202050 ALKPHOS 50 57 ALT 11 13 AST 16 25 TBILI 0.5 0.2 LIPASE -- 59 URINALYSIS:No results for input(s): SPGR, UGLUC, UBILI, UKET, UHB, UPROT, UROBIL, UWBC, SSA in the last 168 hours. Invalid input(s): NITR CARDIAC: Recent Labs 12/01/20 1447 12/01/20 0931 TROPT <0.010 <0.010 Plan of care discussed with: . SIGNATURE: Montez Crum MD DATE: December 02, 2020 TIME: 1:28 PM This note was partially created using voice recognition software and is inherently subject to errors including those of syntax and sound-alike substitutions which may escape proofreading. In such instances, original meaning may be extrapolated by contextual derivation. [facility] 12-01-2020 [facility] HNO ID: [id number] Author: Toney LloydCt) CATARINO Sorenson Service: Nuclear Medicine Author Type: [employer] Leader Type: Allied Health Filed: 12/01/2020 10:46 AM Note Text: RADIOLOGY SERVICE PROGRESS NOTE SERVICE DATE: 12/01/2020 SERVICE TIME: 10:45 AM PATIENT IDENTITY VERIFICATION COMPLETED USING TWO (2) STANDARD IDENTIFIERS: Name and Date of confirmed by patient verbally and Name and Date of confirmed by identification band FALL SCREENING: Has the patient had 2 falls in the last year or 1 fall with injury or currently using an Ambulatory Assistive Device (Walker, Cane, Wheelchair, Crutches, etc.)? Inpatient: Screened on floor PATIENT GENDER DATA: .female : No ALLERGIES: Reviewed and unchanged MEDICATIONS REVIEWED: Not applicable PATIENT RELEVANT IMPLANT DATA REVIEWED: Not Applicable CREATININE: Creatinine Date Value Ref Range Status 11/30/2020 1.84 (H) 0.58 - 0.96 mg/dL Final eGFR-All Other Races Date Value Ref Range Status 11/30/2020 27 . Final Comment: eGFR (Estimated GFR) Units of measure: mL/min/1.73 meters squared eGFR is derived from the reexpressed MDRD Study equation using the following parameters: serum creatinine, age, gender and race. The creatinine assay has been calibrated to be traceable to IDMS. An eGFR <60 mL/min/1.73m2 for >3 months is consistent with chronic kidney disease. Refer to KDOQI guidelines for clinical interpretation. In patients with unstable renal function, e.g. those with acute kidney injury, the eGFR may not accurately reflect actual GFR. eGFR- Date Value Ref Range Status 11/30/2020 33 Final P.O.C.T. RESULTS: N/A December 01, [address] PERFORMED: No IV SITE: Inpatient - refer to LDA documentation POST EXAM PIV STATUS: Inpatient see LDA documentation PROCEDURE TYPE: NM INJECT: LUNG PERF ONLY. 5.4 mCi Tc99m MAA. No other medications given.. ADMINISTRATION TIME: 10:40 PATIENT DISCHARGED TO: Patient taken to IP transport area for return to RNF/ICU/ED. A Diagnostic radioactive procedure has taken place, with no further precautions necessary other than routine body substance precautions. More information regarding radiation safety can be found using this link: [email or web address] [email or web address] [email or web address] SIGNATURE: CATARINO Diaz PATIENT NAME: Shine Min DATE: December 01, 2020 TIME: 10:45 AM PAGER/CONTACT #: Normal [facility] CBCon 12-01-2020 Absolute nRBC <0.01 Normal <0.01 [facility] Comment on above: Performed By: #### C BC ####[facility] [address] [place] [address] Erythrocyte distribution width (RBC) [Ratio] 18.6 % High 11.5-15.0 [facility] Comment on above: Performed By: #### C BC ####[place] [address] Hematocrit (Bld) [Volume fraction] 28.5 % Low 36.0-46.0 [facility] Comment on above: Performed By: #### C BC ####[facility] [address] [place] [address] Hemoglobin (Bld) [Mass/Vol] 8.1 g/dL Low 11.5-15.5 [facility] Comment on above: Performed By: #### C BC ####[place] [address] MCH (RBC) [Entitic mass] 22.0 pG Low 26.0-34.0 [facility] Comment on above: Performed By: #### C BC ####[facility] [address] [place] [address] MCHC (RBC) [Mass/Vol] 28.4 g/dL Low 30.5-36.0 [facility] Comment on above: Performed By: #### C BC ####[facility] [address] MCV (RBC) [Entitic vol] 77.4 fL Low 80.0-100.0 [facility] Comment on above: Performed By: #### C BC ####[facility] [address] [place] [address] Platelet mean volume (Bld) [Entitic vol] 9.2 fL Normal 9.0-12.7 [facility] Comment on above: Performed By: #### C BC ####[facility] [address] [place] [address] Platelets (Bld) [#/Vol] 266 10*3/uL Normal 150-400 [facility] Comment on above: Performed By: #### C BC ####[facility] [address] [place] [address] RBC (Bld) [#/Vol] 3.68 10*6/uL Low 3.90-5.20 [facility] Comment on above: Performed By: #### C BC ####[facility] [address]qu[address]170 [address] WBC (Bld) [#/Vol] 4.52 10*3/uL Normal 3.70-11.00 [facility] Comment on above: Performed By: #### C BC ####[facility] [address] [place] [address] CONSULTon 12-01-2020 CONSULT HNO ID: [id number] Author: Sebastian Matos Service: Gastroenterology Author Type: Physician Type: Consults Filed: 12/01/2020 1:55 PM Note Text: GASTROENTEROLOGY CONSULT NOTE PATIENT NAME: Shine Min SERVICE DATE: December 01, 2020 SERVICE TIME: 10:24 AM PRIMARY CARE PHYSICIAN: Skinny London NP ATTENDING PHYSICIAN: Montez Crum MD REASON FOR ADMISSION / CONSULTATION: Symptomatic anemia HPI: This is a 70 year old female with a past medical history significant for cervical cancer in 2014, anemia and rhabdomyolysis (from previous statin use) who presents to [facility] due to complaints of fatigue, shortness of breath and right shoulder pain. Patient went to see her PCP yesterday due worsening fatigue and was directed to present to the ER for additional evaluation. Patient describes a 1-2 week history of worsening shortness of breath with exertion and fatigue. In the ED the patient was noted to have BUN 20, creatinine 1.84, hemoglobin of 6.1 and hematocrit 22.9. Also noted to have CT findings of moderate sized hiatal hernia. She was admitted to [facility] for additional work up. Patient is without complaints of abdominal pain. Describes increased amount of gas bubbles / twisting which is always brief in duration and self resolving. No nausea or vomiting. Once or twice per month will report a sour taste in her mouth QAM when she awakes. Nothing that is treated with medication. Describes an intermittent globus sensation as well as dysphagia to medications mostly. No odynophagia. Bowel pattern chronically fluctuates and is without BRB or melena. A stool for OB has been collected and found to be negative. Takes Aspirin 81 mg daily and also Ibuprofen 2 tablets most nights prior to sleep and 2 additional tablets QAM for generalized aches and pains. ? ALLERGIES: ALLERGIES Allergen Reactions - Penicillins Unknown - Zffnrcl-Djy-Zvp Red* Unknown - Sulfa (Sulfonamide * Unknown PAST MEDICAL HISTORY: PAST MEDICAL HISTORY Diagnosis Date - Cervical cancer (HCC) 2013 - Cervical cancer (HCC): S/P HYSTERECTOMY - Essential hypertension - GERD (gastroesophageal reflux disease) - Other hyperlipidemia - Rhabdomyolysis 2016 PAST SURGICAL HISTORY: PAST SURGICAL HISTORY Procedure Laterality Date - TOTAL ABDOM HYSTERECTOMY 2013 MEDICATIONS: Prior to Admission Medications: - levothyroxine sodium (LEVOTHYROXINE ORAL), Take by mouth., Disp: , Rfl: , 12/01/2020 at 0700 - lisinopril-hydrochlorot hiazide (PRINZIDE,ZESTORETIC) 20-12.5 mg per tablet, Take 1 tablet by mouth once daily., Disp: , Rfl: , 12/01/2020 at 0700 - ezetimibe (ZETIA ORAL), Take by mouth., Disp: , Rfl: , 12/01/2020 at 0700 - aspirin, enteric coated (ASPIRIN, ENTERIC COATED) 81 mg EC tablet, Take 81 mg by mouth once daily., Disp: , Rfl: , 12/01/2020 at 0700 - niacin ER (NIASPAN) 500 mg tablet, Take 500 mg by mouth twice daily with meals., Disp: , Rfl: , 11/30/2020 at 2300 - atorvastatin calcium (ATORVASTATIN ORAL), Take by mouth., Disp: , Rfl: , Unknown at havent taken in ten days - iron,carb/vit C/vit B12/folic (IRON 100 PLUS ORAL), Take by mouth., Disp: , Rfl: , Unknown at doesnt take Current Hospital Medications: Current Facility-Administered Medications Medication Dose Route Frequency - niacin ER 500 mg tab(s) (NIASPAN) 500 mg ORAL BID w MEALS - levothyroxine 75 mcg tab(s) (SYNTHROID) 75 mcg ORAL DAILY (6 AM) - ezetimibe 10 mg tab(s) (ZETIA) 10 mg ORAL DAILY - sodium chloride 0.9 % (flush) 3-5 mL (BD POSIFLUSH) 3-5 mL INTRAVENOUS q 12 H - lisinopril 20 mg tab(s) (ZESTRIL, PRINIVIL) 20 mg ORAL DAILY - NaCl 0.9% iv infusion 100 mL/hr INTRAVENOUS CONTINUOUS FAMILY HISTORY: Negative for any digestive-related disorders or malignancies. SOCIAL HISTORY: Marital status: Children: Two Alcohol use: 1-2 drinks per month Tobacco use: Quit in 1986 REVIEW OF SYSTEMS: CONSTITUTIONAL: No fevers, chills or unintended weight loss CARDIOVASCULAR: (+) No chest pain. No palpitations or lower extremity edema PULM: (+) dyspnea GI: Per HPI : No dysuria or gross hematuria NEURO: No dizziness or lightheadedness MUSC/SKEL: No new joint pain, swelling, or erythema PSYCH: No concerns regarding depression, anxiety or panic INTEGUMENTARY: No new skin changes (rash, new or changing mole, new growth) PHYSICAL EXAM: Patient Vitals for the past 24 hrs: BP Temp Temp src Pulse Resp SpO2 Height Weight 12/01/20 0814 126/66 36.8 ?C (98.2 ?F) ? 77 ? 95 % ? ? 12/01/20 0728 111/55 36.7 ?C (98.1 ?F) Oral 79 16 96 % ? ? 12/01/20 0616 111/61 37 ?C (98.6 ?F) Oral 80 18 ? ? ? 12/01/20 0549 110/60 37.1 ?C (98.7 ?F) Oral 85 16 ? ? ? 12/01/20 0331 133/58 36.9 ?C (98.4 ?F) Oral 92 20 ? ? ? 12/01/20 0312 118/66 37 ?C (98.6 ?F) Oral 86 16 97 % ? ? 12/01/20 0252 ? 37.1 ?C (98.8 ?F) Oral ? 12/01/20 0248 131/69 ? ? 94 20 95 % ? ? 12/01/20 0225 ? 152.4 cm (5') 89.3 kg (196 lb 13.9 oz) 12/01/20 0157 111/79 37.1 ?C (98.8 ?F) Oral 98 18 98 % ? ? 12/01/20 0130 ? 96 % ? ? 12/01/20 0100 120/62 ? ? 84 19 96 % ? ? 12/01/20 0000 128/69 ? ? 84 22 97 % ? ? 11/30/20 2300 137/67 ? ? (!) 92 19 97 % ? ? 11/30/202104 137/70 ? ? 90 18 98 % ? ? 11/30/201948 ? 36.9 ?C (98.5 ?F) Oral ? 11/30/201946 173/75 ? ? (!) 107 20 99 % ? 89.8 kg (198 lb) Body mass index is 38.45 kg/m?. GENERAL: Alert AND oriented x 3. Cooperative. NAD EYES: No scleral icterus SKIN: Pale in color. No jaundice LUNGS: Diminished to auscultation posteriorly CARDIAC: RRR ABDOMEN: BS x 4 - hypoactive. Abdomen obese but soft, non tender, non distended, no palpable masses or organomegaly. No guarding or rebound tenderness elicited EXTREMITIES: No upper or lower extremity edema LABS: Diagnostic tests reviewed for today's visit: CBC, Coags, BMP, Mg, Phos Recent Labs 11/30/202050 WBC 6.50 HB 6.1* HCT 22.9* PLT 368 NA 134* K 3.7 CHLOR 100 CO2 22 BUN 30* CREAT 1.84* GLUC 106* CA 9.0 Liver Function, Amylase, AND Lipase Recent Labs 11/30/202050 TPROT 7.2 ALB 4.2 ALT 13 AST 25 ALKPHOS 57 TBILI 0.2 LIPASE 59 MISC LABS Component Latest Ref Rng AND Units 11/30/2020 11/30/2020 12/01/2020 8:51 PM 9:35 PM Iron 41 - 186 ug/dL 20 (L) TIBC 232 - 386 ug/dL >520 (H) Transferrin Saturation 15 - 57 % <4 (L) Reticulocyte Count, Manual 0.4 - 2.0 % 1.8 Abs Retic 0.0180 - 0.1000 M/uL 0.057 FRANCINE High Sensitivity <12 ng/L 14 (H) 16 (H) 15 (H) CK 42 - 196 U/L 131 Lipase 16 - 61 U/L 59 d Dimer <500 ng/mL FEU 1,690 (H) Ferritin 14.7 - 205.1 ng/mL 3.7 (L) Folate >4.7 ng/mL 16.8 Vitamin B12 232 - 1,245 pg/mL 333 11/30/2020 Stool OB (-) 11/30/2020 COVID-19 (-) RADIOLOGY 11/30/2020 CT Chest/A/P RESULT: CT chest: Limitations: ?None. Lines, tubes, and devices: ?None. Lung parenchyma and airways: There is left basilar atelectasis. ?There is focal airspace opacity in the lingula measuring 8 mm (5:100). Pleural space: ?No pleural effusion. ?No pleural thickening. Lower neck, lymph nodes, and mediastinum: ?The imaged thyroid gland is ormal. ?No lymphadenopathy in the supraclavicular, axillary, mediastinal, or hilar regions. Heart, pericardium, and thoracic vessels: ?The thoracic aorta and main pulmonary artery are normal in caliber. The cardiac chambers are normal in size. No coronary artery atherosclerotic calcifications are noted, although the study is not optimized for coronary assessment. No pericardial effusion or thickening. Abdomen / Pelvis: Liver: There are 2 cysts in the liver measuring up to 2.9 cm in the inferior right hepatic lobe. Biliary: The gallbladder is unremarkable. Spleen: No splenomegaly. Pancreas: Unremarkable. Adrenals: No mass. Kidneys: No calculus, hydronephrosis or finding to suggest a cyst or mass in the unenhanced kidney. GI Tract: No bowel dilation. ?There is a moderate-sized hiatal hernia. The appendix is unremarkable. Lymph Nodes: No lymphadenopathy. Mesentery/peritoneum: No ascites. Retroperitoneum: No mass. Vasculature: Normal caliber of the abdominal aorta. Pelvis: No mass or ascites. ?Hysterectomy. Bones/Soft Tissues: No acute abnormality. Oyster Sorter (topogram) images: No additional findings. IMPRESSION: Focal area of airspace opacity in the lingula measuring 8 mm. ?This appears somewhat nodular. ?The recommendations as below. Moderate-sized hiatal hernia Incidental Finding: ?Follow-up Acuity: Incidental Finding: Solid 6-8 mm (solitary nodule) Routing Code: RI_1 Recommendation: CT Chest WO IVCON Time Frame: 6-12 months Comments: If stable on follow-up imaging, a repeat chest CT exam in 12 months (18-24 months from the initial exam) ?is recommended 12/01/2020 VQ Scan IMPRESSION: LOW PROBABILITY OF PULMONARY EMBOLISM. MOST RECENT EGD Has never undergone endoscopic evaluation MOST RECENT COLONOSCOPY Completed in 10/2014 -- per patient was told to return in 10 years. ASSESSMENT 1. Symptomatic Iron deficiency anemia - s/p 2 units PRBC 2. HAILE 3. Intermittent dysphagia and globus sensation 4. CT findings of moderate sized hiatal hernia 5. Hepatic cysts x 2 (up to 2.9 cm) PLAN - Repeat H/H today - Start Pantoprazole 40 mg po daily - Ferrlecit 125 mg IV daily - IVF as per IM - Regular diet - Daily CBC and CMP - Stool log. Check stool for OB - Recommend EGD evaluation -- timing to be based on patients clinical course Total time spent on encounter: 60 minutes. This includes time reviewing diagnostic work up and electronic medical record as well as face to face encounter. Thank you for the opportunity to participate in the care of this patient. I will continue to follow with you. SIGNATURE: Carol Owen APRN.[facility] DATE: December 01, 2020 TIME: 10:24 AM As above, pt with anemia of undefined cause. Parameters appear consistent with iron deficiency anemia. No clinical evidence of active blood loss. Must r/o occult gi blood loss as well as malabsorptive process such as Celiac Sprue. Will plan egd; colonoscopy to follow, timing based on clinical course and result of egd. Normal [facility] CT ABD/PEL WO IVCONon 2020 CT ABD/PEL WO IVCON * * *Final Report* * * DATE OF EXAM: Nov 30 2020 10:22PM [facility] 0531 - CT ABD/PEL WO IVCON / PROCEDURE REASON: Nausea, vomiting * * * * Physician Interpretation * * * * EXAMINATION: CT CHEST, ABDOMEN AND PELVIS WITHOUT IV CONTRAST CLINICAL HISTORY: Nausea, vomiting, Abdominal pain, acute, nonlocalized (accession [id number]), Shortness of breath, Chest pain or SOB, pleurisy or effusion suspected (accession [id number]) Concern for malignancy GENERALIZED PAIN HX CERV CA TECHNIQUE: Non-IV contrast imaging of the chest, abdomen and pelvis was performed using standard technique. Unenhanced imaging is limited for the evaluation of some intra-abdominal and pelvic pathology. MQ: CTAPWO_3 Contrast: IV: None : ml of CT Radiation dose: Integrated Dose-length product (DLP) for this visit = 825 mGy*cm. CT Dose Reduction Employed: mAs-kVp adjusted based on patient size-age COMPARISON: None. RESULT: CT chest: Limitations: None. Lines, tubes, and devices: None. Lung parenchyma and airways: There is left basilar atelectasis. There is focal airspace opacity in the lingula measuring 8 mm (5:100). Pleural space: No pleural effusion. No pleural thickening. Lower neck, lymph nodes, and mediastinum: The imaged thyroid gland is normal. No lymphadenopathy in the supraclavicular, axillary, mediastinal, or hilar regions. Heart, pericardium, and thoracic vessels: The thoracic aorta and main pulmonary artery are normal in caliber. The cardiac chambers are normal in size. No coronary artery atherosclerotic calcifications are noted, although the study is not optimized for coronary assessment. No pericardial effusion or thickening. Abdomen / Pelvis: Liver: There are 2 cysts in the liver measuring up to 2.9 cm in the inferior right hepatic lobe. Biliary: The gallbladder is unremarkable. Spleen: No splenomegaly. Pancreas: Unremarkable. Adrenals: No mass. Kidneys: No calculus, hydronephrosis or finding to suggest a cyst or mass in the unenhanced kidney. GI Tract: No bowel dilation. There is a moderate-sized hiatal hernia. The appendix is unremarkable. Lymph Nodes: No lymphadenopathy. Mesentery/peritoneum: No ascites. Retroperitoneum: No mass. Vasculature: Normal caliber of the abdominal aorta. Pelvis: No mass or ascites. Hysterectomy. Bones/Soft Tissues: No acute abnormality. Oyster Sorter (topogram) images: No additional findings. IMPRESSION: Focal area of airspace opacity in the lingula measuring 8 mm. This appears somewhat nodular. The recommendations as below. Moderate-sized hiatal hernia Incidental Finding: Follow-up Acuity: Incidental Finding: Solid 6-8 mm (solitary nodule) Routing Code: RI_1 Recommendation: CT Chest WO IVCON Time Frame: 6-12 months Comments: If stable on follow-up imaging, a repeat chest CT exam in 12 months (18-24 months from the initial exam) is recommended Overlock Waistline Joiner: DUTCH Transcribe Date/Time: Nov 30 2020 10:56P Dictated by : FRANCESCO MANRIQUEZ MD This examination was interpreted and the report reviewed and electronically signed by: FRANCESCO MANRIQUEZ MD on Nov 30 2020 11:12PM EST [id number] [facility] CT CHEST WO IVCONon 12-01-[address] CHEST WO IVCON * * *Final Report* * * DATE OF EXAM: Nov 30 2020 10:22PM [facility] [place] 0541 - CT CHEST WO IVCON / PROCEDURE REASON: Shortness of breath * * * * Physician Interpretation * * * * EXAMINATION: CT CHEST, ABDOMEN AND PELVIS WITHOUT IV CONTRAST CLINICAL HISTORY: Nausea, vomiting, Abdominal pain, acute, nonlocalized (accession [id number]), Shortness of breath, Chest pain or SOB, pleurisy or effusion suspected (accession [id number]) Concern for malignancy GENERALIZED PAIN HX CERV CA TECHNIQUE: Non-IV contrast imaging of the chest, abdomen and pelvis was performed using standard technique. Unenhanced imaging is limited for the evaluation of some intra-abdominal and pelvic pathology. MQ: CTAPWO_3 Contrast: IV: None : ml of CT Radiation dose: Integrated Dose-length product (DLP) for this visit = 825 mGy*cm. CT Dose Reduction Employed: mAs-kVp adjusted based on patient size-age COMPARISON: None. RESULT: CT chest: Limitations: None. Lines, tubes, and devices: None. Lung parenchyma and airways: There is left basilar atelectasis. There is focal airspace opacity in the lingula measuring 8 mm (5:100). Pleural space: No pleural effusion. No pleural thickening. Lower neck, lymph nodes, and mediastinum: The imaged thyroid gland is normal. No lymphadenopathy in the supraclavicular, axillary, mediastinal, or hilar regions. Heart, pericardium, and thoracic vessels: The thoracic aorta and main pulmonary artery are normal in caliber. The cardiac chambers are normal in size. No coronary artery atherosclerotic calcifications are noted, although the study is not optimized for coronary assessment. No pericardial effusion or thickening. Abdomen / Pelvis: Liver: There are 2 cysts in the liver measuring up to 2.9 cm in the inferior right hepatic lobe. Biliary: The gallbladder is unremarkable. Spleen: No splenomegaly. Pancreas: Unremarkable. Adrenals: No mass. Kidneys: No calculus, hydronephrosis or finding to suggest a cyst or mass in the unenhanced kidney. GI Tract: No bowel dilation. There is a moderate-sized hiatal hernia. The appendix is unremarkable. Lymph Nodes: No lymphadenopathy. Mesentery/peritoneum: No ascites. Retroperitoneum: No mass. Vasculature: Normal caliber of the abdominal aorta. Pelvis: No mass or ascites. Hysterectomy. Bones/Soft Tissues: No acute abnormality. Oyster Sorter (topogram) images: No additional findings. IMPRESSION: Focal area of airspace opacity in the lingula measuring 8 mm. This appears somewhat nodular. The recommendations as below. Moderate-sized hiatal hernia Incidental Finding: Follow-up Acuity: Incidental Finding: Solid 6-8 mm (solitary nodule) Routing Code: RI_1 Recommendation: CT Chest WO IVCON Time Frame: 6-12 months Comments: If stable on follow-up imaging, a repeat chest CT exam in 12 months (18-24 months from the initial exam) is recommended Overlock Waistline Joiner: DUTCH Transcribe Date/Time: Nov 30 2020 10:56P Dictated by : FRANCESCO MANRIQUEZ MD This examination was interpreted and the report reviewed and electronically signed by: FRANCESCO MANRIQUEZ MD on Nov 30 2020 11:12PM EST [id number] ACTIONABLE [facility] Confirm Blood Typeon 021 ABO/RH(D) Positive Normal [facility] Comment on above: Performed By: #### C MP #### [facility] Laboratory [address] [facility] [phone] ED NOTEon 12-01-2020 ED NOTE HNO ID: [id number] Author: Irlanda (Rn) CAMERON Gates Service: ? Author Type: Registered Nurse Type: ED Notes Filed: 11/30/2020 11:21 PM Note Text: dr Mckee in room to talk with pt. [facility] ED NOTE HNO ID: [id number] Author: Irlanda LloydRn) CAMERON Gates Service: ? Author Type: Registered Nurse Type: ED Notes Filed: 11/30/2020 10:09 PM Note Text: covid sent [facility] Expedited [id number] 12-01-19 21 COVID 19 Result CONFIGURATOR Negative Normal Negative for COVID19 (SARS CoV2) by PCR. [facility] Comment on above: Result Comment: This test has been authorized by FDA under an Emergency Use Authorization (EUA). Performed By: #### E XCOVD ####[facility] Ragpbjdknx7588 [address] COVID 19 Source CONFIGURATOR UPPER RESPIRATORY TR ACT SWAB [facility] Comment on above: Performed By: #### E XCOVD ####[facility] Ugdunfwmjw5267 [address] HISTORY PHYSICALon HISTORY PHYSICAL HNO ID: [id number] Author: Montez Crum V Service: General Internal Medicine Author Type: Physician Type: HANDP Filed: 12/01/2020 10:00 AM Note Text: [place], [place] [address] PH: [phone] HISTORY AND PHYSICAL Patient Name: Shine Min :1950 Age:[age] year old female ADMISSION DATE: 11/30/2020 Provider: Montez Crum MD SERVICE:InternalMedicin e/Pulmonary/Sleep Medicine Date AND time of evaluation/service: December 01, 2020 TIME: 9:48 AM PRIMARY CARE PHYSICIAN: Skinny London NP Subjective CHIEF COMPLAINT: Back pain, right shoulder pain, shortness of breath and heartburn HPI: Patient. Normal patient of RENÉE [place]. She has history of cervical cancer and [...] about her worsening pain. She also reporting some shortness of breath. She also reports having some heartburn for last 2 weeks. She denies having any black stool. She did report mild twitching in her abdomen but denies any nausea or vomiting. She was evaluated in emergency room. She had a CT abdomen and pelvis done which only showed 8 mm nodule in the lingular segment of the left upper lobe which needed further follow-up on outpatient basis. Her lab test results reviewed. She had a CBC done that showed hemoglobin of 6.1 g. We do not have any previous lab test results. I have called her Nurse practitioner AT [phone] and left a message for blood test reports. GI consultation also requested. Patient received 2 units of packed red blood cell transfusion. Repeat lab work has been ordered. She also had elevated serum creatinine 1.8. He did undergo a CT of the chest with contrast last night but I was told that the contrast did not have proper timing to get good results remarkably thromboembolism. Due to concern about her chest pain, she did receive 1 dose of Lovenox. However, with his low hemoglobin, her anticoagulation and aspirin are being discontinued. Currently, she is feeling awake alert and comfortable and does not report any acute discomfort or distress. Patient also placed on IV fluids due to her elevated serum creatinine and having CT of the chest with contrast. Follow-up on outpatient basis. REVIEW OF SYSTEMS: General: Denies any significant change in weight. No fever, chills or malaise Eyes: No visual difficulty or discharge EENT: Denies any trouble swallowing or choking on food. Denies sore throat Pulmonary: Reports some increased shortness of breath on walking and bending for last 2 weeks. Cardiac: Denies chest pain, palpitation. Has chronic lymphedema in the right leg. GI: Heartburn for last 2 weeks : Denies dysuria, Frequency, incontinence to have an element okay to discharge home. Cardiovascular not maternal- Musculoskeletal: Right shoulder and neck pain skin: Denies any rash or itching Neuro: Denies headache, Focal weakness, numbness, seizure disorder psych: She feels under stress PAST MEDICAL HISTORY Diagnosis Date - Cervical cancer (HCC) 2013 - Cervical cancer (HCC): S/P HYSTERECTOMY - Essential hypertension - GERD (gastroesophageal reflux disease) - Other hyperlipidemia - Rhabdomyolysis 2017 PAST SURGICAL HISTORY Procedure Laterality Date - TOTAL ABDOM HYSTERECTOMY 2013 FAMILY HISTORY Problem Relation Age of Onset - Cancer Father - Hypertension Mother - Cataract Mother - Glaucoma Mother - Macular Degen Mother Social History Tobacco Use - Smoking status: Former Smoker Packs/day: 3.00 Years: 14.00 Pack years: 42.00 Types: Cigarettes - Smokeless tobacco: Never Used - Tobacco comment: quit 1986 Substance Use Topics - Alcohol use: Yes Comment: social - Drug use: Never - levothyroxine sodium (LEVOTHYROXINE ORAL), Take by mouth., Disp: , Rfl: , 12/01/2020 at 0700 - lisinopril-hydrochlorot hiazide (PRINZIDE,ZESTORETIC) 20-12.5 mg per tablet, Take 1 tablet by mouth once daily., Disp: , Rfl: , 12/01/2020 at 0700 - ezetimibe (ZETIA ORAL), Take by mouth., Disp: , Rfl: , 12/01/2020 at 0700 - aspirin, enteric coated (ASPIRIN, ENTERIC COATED) 81 mg EC tablet, Take 81 mg by mouth once daily., Disp: , Rfl: , 12/01/2020 at 0700 - niacin ER (NIASPAN) 500 mg tablet, Take 500 mg by mouth twice daily with meals., Disp: , Rfl: , 11/30/2020 at 2300 - atorvastatin calcium (ATORVASTATIN ORAL), Take by mouth., Disp: , Rfl: , Unknown at havent taken in ten days - iron,carb/vit C/vit B12/folic (IRON 100 PLUS ORAL), Take by mouth., Disp: , Rfl: , Unknown at doesnt take ALLERGIES Allergen Reactions - Penicillins Unknown - Evomqpz-Cbb-Uyq Red* Unknown - Sulfa (Sulfonamide * Unknown Objective BP 126/66 Pulse 77 Temp 36.8 ?C (98.2 ?F) Resp 16 Ht 152.4 cm (5') Wt 89.3 kg (196 lb 13.9 oz) SpO2 95% BMI 38.45 kg/m? PHYSICAL EXAM: General: Awake alert, answering questions appropriately. HEENT: Unremarkable. Pupils: Reactive pharynx normal. Mallampati: 2 Neck: soft. JVD not raised, Thyroid:not enlarged chest: symmetrical: Nontender lungs: Chest Symmetrical. Respiration: non labored. Lungs clear to auscultation AND palpitation Cardiac: Regular rate and rhythm. Apical impulse is normal. No murmur heard. No pitting edema. Abdomen soft, nontender, no guarding or rigidity noted. Bowel sounds active. No organomegaly noted. Musculoskeletal: No obvious joint deformity noted Extremities: Upper extremities : normal, Lower extremities: Chronic lymphedema right leg Skin: No rash noted. Palpation: normal tone Lymphatic: No cervical or supraclavicular lymphadenopathy noted. Neurological: Face symmetrical. Moving all 4 extremities in reasonable fashion: Speech normal Patient Vitals for the past 24 hrs: BP Temp Temp src Pulse Resp SpO2 Height Weight 12/01/20 0814 126/66 36.8 ?C (98.2 ?F) ? 77 ? 95 % ? ? 12/01/20 0728 111/55 36.7 ?C (98.1 ?F) Oral 79 16 96 % ? ? 12/01/20 0616 111/61 37 ?C (98.6 ?F) Oral 80 18 ? ? ? 12/01/20 0549 110/60 37.1 ?C (98.7 ?F) Oral 85 16 ? ? ? 12/01/20 0331 133/58 36.9 ?C (98.4 ?F) Oral 92 20 ? ? ? 12/01/20 0312 118/66 37 ?C (98.6 ?F) Oral 86 16 97 % ? ? 12/01/20 0252 ? 37.1 ?C (98.8 ?F) Oral ? 12/01/20 0248 131/69 ? ? 94 20 95 % ? ? 12/01/20 0225 ? 152.4 cm (5') 89.3 kg (196 lb 13.9 oz) 12/01/20 0157 111/79 37.1 ?C (98.8 ?F) Oral 98 18 98 % ? ? 12/01/20 0130 ? 96 % ? ? 12/01/20 0100 120/62 ? ? 84 19 96 % ? ? 12/01/20 0000 128/69 ? ? 84 22 97 % ? ? 11/30/20 2300 137/67 ? ? (!) 92 19 97 % ? ? 01/15/21 2105 137/70 ? ? 90 18 98 % ? ? 11/30/201948 ? 36.9 ?C (98.5 ?F) Oral ? 11/30/201946 173/75 ? ? (!) 107 20 99 % ? 89.8 kg (198 lb) DATA: Diagnostic tests reviewed for today's visit: CT of the chest: Contrast timing was not right and pulmonary embolism cannot be completely ruled out. 80 mm of noncalcified pulmonary nodule noted in the lingular segment of the left upper lobe. EKG: Normal sinus rhythm ABG: No results for input(s): PH, PCO2, PO2, HCO3 in the last 168 hours. CBC: Recent Labs 11/30/202050 WBC 6.50 HB 6.1* HCT 22.9* PLT 368 COAG: No results for input(s): APTT, INR in the last 168 hours. BMP: Recent Labs 11/30/202050 GLUC 106* NA 134* K 3.7 CHLOR 100 CO2 22 ANION 12 BUN 30* CREAT 1.84* CHEM: Recent Labs 11/30/202050 ALB 4.2 TPROT 7.2 CA 9.0 HEPATIC: Recent Labs 11/30/202050 ALKPHOS 57 ALT 13 AST 25 TBILI 0.2 LIPASE 59 URINALYSIS:No results for input(s): SPGR, UGLUC, UBILI, UKET, UHB, UPROT, UROBIL, UWBC, SSA in the last 168 hours. Invalid input(s): NITR CARDIAC: No results for input(s): CKTEST, CKMB, CKMBP, TROPT, PBNP in the last 168 hours. Assessment/Plan 1. Symptomatic severe anemia with hemoglobin of 6.1 g. He did not have any previous lab test reports on her for comparison purposes. Patient received units of packed red blood cell transfusion. GI has been consulted. Patient was assigned to observation bed which will be changed to full admit. I have also called her nurse practitioner to fax me her previous lab test reports. 2. Abnormal serum creatinine: Not have access to previous lab test reports at this time.. It could be due to her GI bleed. Patient started on IV fluids. 3. Exertional dyspnea: Probably due to her anemia 4. Right shoulder pain and back pain: Etiology remains unclear at this time. While laying in the bed, she appears fairly comfortable. 5. Chest pain: Had elevated D-dimer. However, with her severe anemia. Will hold off all anticoagulations on her at this time. Will use SCD. SIGNATURE: Montez Crum MD PATIENT NAME: Shine Min DATE: December 01, 2020 TIME: 9:48 AM Normal [facility] Hemoglobinon 12-01-2020 Hemoglobin (Bld) [Mass/Vol] 8.3 g/dL Low 11.5-15.5 [facility] Comment on above: Performed By: #### H GB ####[facility] [id number] [place] [address] High Sens Troponin Ton 12-01 High Sensitivity FRANCINE 15 ng/L High <12 [facility] Comment on above: Performed By: #### H STNT ####[facility] [id number] [place] [address] Iron and TIBCon 12-01-2020 Iron [Mass/Vol] 13 ug/dL Low 41-186 [facility] Comment on above: Performed By: #### I LEXII, RETIC ####[facility] [id number] [place] [address] TIBC 446 ug/dL High 232-386 [facility] Comment on above: Performed By: #### I LEXII, RETIC ####[facility] [id number] [place] [address] Transferrin Saturatn 3 % Low 15-57 [facility] Comment on above: Performed By: #### I LEXII, RETIC ####[facility] [id number] [place] [address] NM LUNG VENT / PERF VQon NM LUNG VENT / PERF VQ * * *Final Report * * * DATE OF EXAM: Dec 01 2020 11:03AM ARMAAN 0032 - NM LUNG VENT / PERF VQ / PROCEDURE REASON: PE suspected, high pretest prob * * * * Physician Interpretation * * * * LUNG SCAN-Perfusion SPECT CLINICAL HISTORY: Assess for acute pulmonary embolism. Dyspnea and Chest pain. Elevated d-dimer. TECHNIQUE: 5.4 mCi Tc 99m MAA IV. Planar images and SPECT of the chest are acquired. Comparison chest CT: 11/30/2020. RESULTS: Perfusion Images: Mildly heterogeneous tracer distribution in the bilateral lungs. Nonsegmental perfusion defects: Regions of decreased activity corresponding to overlying soft tissue attenuation and mediastinal silhouette. Segmental perfusion defects: none. IMPRESSION: LOW PROBABILITY OF PULMONARY EMBOLISM. Overlock Waistline Joiner: DUTCH Transcribe Date/Time: Dec 01 2020 11:16A Dictated by : LIOR ABEL MD This examination was interpreted and the report reviewed and electronically signed by: LIOR ABEL MD on Dec 01 2020 1:08PM EST [id number] [facility] NURSING PROGon 12-01-2020 NURSING PROG HNO ID: [id number] Author: Celia (Rn) CAMERON Schaefer Service: ? Author Type: Registered Nurse Type: Nursing Progress Note Filed: 12/01/2020 6:43 AM Note Text: Nursing Progress Note Patient Name: Shine Min Patient [id number] Daily Note: 0212: Admitted patient to unit. Completed admission and assessment, patient c/o of mild back pain from symptomatic anemia. VENEER MARKER at bedside. Patient is showing mild signs of anxiety of being in the hospital, she is worrying about her and is tearful. Son is very involved in both of their life. All safety measures maintained. 0316: Started unit of PRBC, obtained vitals at 0331. Patient is experience no adverse reactions. All safety measures maintained. No needs at this time. 0529: Gave morning medication, transfusion of PRBC almost complete. All safety measures maintained, no needs at this time. 0549: Infusion of PRBC completed, vitals obtained, patient has no s/s of transfusion reaction. 0601: Started second unit of PRBC. Patient states her symptoms of anemia are starting to subside. 0616: Vitals obtained. Patient has no s/s of transfusion reactions. Educated the patient on how to order breakfast. No needs at this time, all safety measures maintained. This note was completed by: Celia Schaefer RN [facility] PROGRESSon 12-01-2020 PROGRESS HNO ID: [id number] Author: Sally Ford) MAGEN Hannon.RENÉE Service: General Internal Medicine Author Type: Nurse Practitioner Type: Progress Notes Filed: 12/01/2020 4:50 AM Note Text: ADMISSION EXAMINATION SERVICE DATE: 12/01/2020 SERVICE TIME: 033 PCP: Skinny [place] NP PRIMARY ATTENDING: Dr. Bebeto Crum Subjective CHIEF COMPLAINT: Pain (Shoulder Pain) (for about 2 weeks), Shortness of Breath, and Back Pain (upper back pain) HPI: Patient is a 70 year old female with a past medical history significant for hypertension, cervical cancer s/p hysterectomy, Gerd, hyperlipidemia, and rhabdomyolysis in 2016 with statin use. Pt was seen at her PCP's office on 11/30 for c/o sob with mild exertion (which is not normal for her) and muscle pains. She was assessed and advised to be seen in the ER. Pt notes having exertional sob for the past 2 weeks. She also notes bilateral shoulder soreness. With her h/o rhabdo in the past she stopped her statin. She also c/o frequent charley horses to her left calf, and Intermittent pain under her left rib cage. Pt denies fever/chills, cp, nausea/vomiting, diarrhea, blood in stool. Pt mentioned concern regarding Gerd and possibility of ulcer d/t large amounts of stress she is currently under. She notes last colonoscopy in 2013. Her hgb was found to be 6.1, hct 22.9. OB stool negative. She was ordered 2 units PRBCs. D-dimer 1,690- d/t pt's renal function she was unable to have a CTA PE study. VQ scan has been ordered for morning and pt was given a dose of lovenox. Ferritin 3.7, iron 20, TIBC >520, transferrin <4. BUN 30, creatinine 1.84. NA 134. HS trops 14, 16, 15. Lipase and CK wnl. History provided by: patient and EMR FUNCTIONAL STATUS: Independent PAST MEDICAL HISTORY Diagnosis Date - Cervical cancer (HCC) 2013 - Essential hypertension - GERD (gastroesophageal reflux disease) - Other hyperlipidemia - Rhabdomyolysis 2016 PAST SURGICAL HISTORY Procedure Laterality Date - TOTAL ABDOM HYSTERECTOMY 2013 FAMILY HISTORY Problem Relation Age of Onset - Cancer Father - Hypertension Mother - Cataract Mother - Glaucoma Mother - Macular Degen Mother Social History Tobacco Use - Smoking status: Former Smoker Packs/day: 3.00 Years: 14.00 Pack years: 42.00 Types: Cigarettes - Smokeless tobacco: Never Used - Tobacco comment: quit 1986 Substance Use Topics - Alcohol use: Yes Comment: social - Drug use: Never I have confirmed and edited as necessary, the PFSH obtained by others. ALLERGIES Allergen Reactions - Penicillins Unknown - Uvusqvo-Jgc-Vjr Red* Unknown - Sulfa (Sulfonamide * Unknown Prior to Admission Medications Prescriptions Last Dose Informant Patient Reported? Taking? aspirin, enteric coated (ASPIRIN, ENTERIC COATED) 81 mg EC tablet 12/01/2020 at 0700 Yes Yes Sig: Take 81 mg by mouth once daily. atorvastatin calcium (ATORVASTATIN ORAL) Unknown at havent taken in ten days Yes No Sig: Take by mouth. ezetimibe (ZETIA ORAL) 12/01/2020 at 0700 Yes Yes Sig: Take by mouth. iron,carb/vit C/vit B12/folic (IRON 100 PLUS ORAL) Unknown at doesnt take Yes No Sig: Take by mouth. levothyroxine sodium (LEVOTHYROXINE ORAL) 12/01/2020 at 0700 Yes Yes Sig: Take by mouth. lisinopril-hydrochlorot hiazide (PRINZIDE,ZESTORETIC) 20-12.5 mg per tablet 12/01/2020 at 0700 Yes Yes Sig: Take 1 tablet by mouth once daily. niacin ER (NIASPAN) 500 mg tablet 11/30/2020 at 2300 Yes Yes Sig: Take 500 mg by mouth twice daily with meals. Facility-Administered Medications: None REVIEW OF SYSTEMS: Review of Systems Constitutional: Positive for fatigue. Negative for chills and fever. HENT: Negative for congestion and trouble swallowing. Eyes: Negative. Respiratory: Positive for shortness of breath and dyspnea . Negative for cough and chest tightness. Cardiovascular: Positive for leg swelling. Negative for chest pain. Gastrointestinal: Negative for abdominal pain, blood in stool, constipation, diarrhea, nausea and vomiting. Endocrine: Negative. Genitourinary: Negative for difficulty urinating, dysuria and frequency. Musculoskeletal: Positive for myalgias. Skin: Positive for pallor. Allergic/Immunologic: Negative for environmental allergies and food allergies. Neurological: Positive for weakness. Negative for dizziness, tremors, syncope, light-headedness, numbness and headaches. Psychiatric/Behavioral: Negative for agitation, confusion and hallucinations. The patient is not nervous/anxious. Objective PHYSICAL EXAM: Physical Exam Constitutional: She is oriented to person, place, and time. She appears well-nourished. She is cooperative. No distress. HENT: Head: Normocephalic. Eyes: Pupils are equal, round, and reactive to light. EOM are normal. Cardiovascular: Normal rate, regular rhythm, intact distal pulses and normal pulses. No murmur heard. Pulmonary/Chest: Effort normal. No tachypnea. She has no decreased breath sounds. She has no wheezes. She has no rhonchi. She has no rales. Abdominal: Soft. Normal appearance and bowel sounds are normal. There is no abdominal tenderness. Musculoskeletal: General: Normal range of motion. Cervical back: Full passive range of motion without pain and normal range of motion. Right lower leg: No tenderness. Edema present. Left lower leg: No tenderness. Edema present. Neurological: She is alert and oriented to person, place, and time. She displays no tremor. No sensory deficit. She exhibits normal muscle tone. She displays no seizure activity. Skin: Skin is warm and dry. She is not diaphoretic. There is pallor. Psychiatric: She has a normal mood and affect. Her speech is normal and behavior is normal. Cognition and memory are normal. BP 133/58 Pulse 92 Temp 36.9 ?C (98.4 ?F) (Oral) Resp 20 Ht 152.4 cm (5') Wt 89.3 kg (196 lb 13.9 oz) SpO2 97% BMI 38.45 kg/m? Body mass index is 38.45 kg/m?. DATA: Diagnostic tests: Most recent labs and imaging results. Imaging: XR CHEST 1V FRONTAL PORT Result Date: 11/30/2020 * * *Final Report* * * DATE OF EXAM: Nov 30 2020 9:35PM MDX [id number] - XR CHEST 1V FRONTAL PORT / PROCEDURE REASON: Chest pain * * * * Physician Interpretation * * * * EXAMINATION: CHEST RADIOGRAPH (PORTABLE SINGLE VIEW AP) Exam Date/Time: 11/30/2020 9:35 PM CLINICAL HISTORY: Chest pain MQ: XCPR_5 Comparison: None. RESULT: Lines, tubes, and devices: _ Lungs and pleura: No focal infiltrates or pleural effusions. _ No pneumothorax. Cardiomediastinal silhouette: Stable cardiomediastinal silhouette. Tortuous aorta. Large hiatal hernia. Bones and soft tissues: The bony thorax is intact. _ IMPRESSION: No acute radiographic abnormality. Hiatal hernia. Overlock Waistline Joiner: PSCB Transcribe Date/Time: Nov 30 2020 9:42P Dictated by : CANDI RAMIRES MD This examination was interpreted and the report reviewed and electronically signed by: CANDI RAMIRES MD on Nov 30 2020 9:43PM EST CT ABD/PEL WO IVCON Result Date: 11/30/2020 * * *Final Report* * * DATE OF EXAM: Nov 30 2020 10:22PM [facility] [place] [facility] 0531 - CT ABD/PEL WO IVCON / PROCEDURE REASON: Nausea, vomiting * * * * Physician Interpretation * * * * EXAMINATION: CT CHEST, ABDOMEN AND PELVIS WITHOUT IV CONTRAST CLINICAL HISTORY: Nausea, vomiting, Abdominal pain, acute, nonlocalized (accession [id number]), Shortness of breath, Chest pain or SOB, pleurisy or effusion suspected (accession [id number]) Concern for malignancy GENERALIZED PAIN HX CERV CA TECHNIQUE: Non-IV contrast imaging of the chest, abdomen and pelvis was performed using standard technique. Unenhanced imaging is limited for the evaluation of some intra-abdominal and pelvic pathology. MQ: CTAPWO_3 Contrast: IV: None : ml of CT Radiation dose: Integrated Dose-length product (DLP) for this visit = 825 mGy*cm. CT Dose Reduction Employed: mAs-kVp adjusted based on patient size-age COMPARISON: None. RESULT: CT chest: Limitations: None. Lines, tubes, and devices: None. Lung parenchyma and airways: There is left basilar atelectasis. There is focal airspace opacity in the lingula measuring 8 mm (5:100). Pleural space: No pleural effusion. No pleural thickening. Lower neck, lymph nodes, and mediastinum: The imaged thyroid gland is normal. No lymphadenopathy in the supraclavicular, axillary, mediastinal, or hilar regions. Heart, pericardium, and thoracic vessels: The thoracic aorta and main pulmonary artery are normal in caliber. The cardiac chambers are normal in size. No coronary artery atherosclerotic calcifications are noted, although the study is not optimized for coronary assessment. No pericardial effusion or thickening. Abdomen / Pelvis: Liver: There are 2 cysts in the liver measuring up to 2.9 cm in the inferior right hepatic lobe. Biliary: The gallbladder is unremarkable. Spleen: No splenomegaly. Pancreas: Unremarkable. Adrenals: No mass. Kidneys: No calculus, hydronephrosis or finding to suggest a cyst or mass in the unenhanced kidney. GI Tract: No bowel dilation. There is a moderate-sized hiatal hernia. The appendix is unremarkable. Lymph Nodes: No lymphadenopathy. Mesentery/peritoneum: No ascites. Retroperitoneum: No mass. Vasculature: Normal caliber of the abdominal aorta. Pelvis: No mass or ascites. Hysterectomy. Bones/Soft Tissues: No acute abnormality. Oyster Sorter (topogram) images: No additional findings. IMPRESSION: Focal area of airspace opacity in the lingula measuring 8 mm. This appears somewhat nodular. The recommendations as below. Moderate-sized hiatal hernia Incidental Finding: Follow-up Acuity: Incidental Finding: Solid 6-8 mm (solitary nodule) Routing Code: RI_1 Recommendation: CT Chest WO IVCON Time Frame: 6-12 months Comments: If stable on follow-up imaging, a repeat chest CT exam in 12 months (18-24 months from the initial exam) is recommended Overlock Waistline Joiner: DUTCH Transcribe Date/Time: Nov 30 2020 10:56P Dictated by : FRANCESCO MANRIQUEZ MD This examination was interpreted and the report reviewed and electronically signed by: FRANCESCO MANRIQUEZ MD on Nov 30 2020 11:12PM EST CT CHEST WO IVCON Result Date: 11/30/2020 * * *Final Report* * * DATE OF EXAM: Nov 30 2020 10:22PM [facility] [place] 0541 - CT CHEST WO IVCON / PROCEDURE REASON: Shortness of breath * * * * Physician Interpretation * * * * EXAMINATION: CT CHEST, ABDOMEN AND PELVIS WITHOUT IV CONTRAST CLINICAL HISTORY: Nausea, vomiting, Abdominal pain, acute, nonlocalized (accession [id number]), Shortness of breath, Chest pain or SOB, pleurisy or effusion suspected (accession [id number]) Concern for malignancy GENERALIZED PAIN HX CERV CA TECHNIQUE: Non-IV contrast imaging of the chest, abdomen and pelvis was performed using standard technique. Unenhanced imaging is limited for the evaluation of some intra-abdominal and pelvic pathology. MQ: CTAPWO_3 Contrast: IV: None : ml of CT Radiation dose: Integrated Dose-length product (DLP) for this visit = 825 mGy*cm. CT Dose Reduction Employed: mAs-kVp adjusted based on patient size-age COMPARISON: None. RESULT: CT chest: Limitations: None. Lines, tubes, and devices: None. Lung parenchyma and airways: There is left basilar atelectasis. There is focal airspace opacity in the lingula measuring 8 mm (5:100). Pleural space: No pleural effusion. No pleural thickening. Lower neck, lymph nodes, and mediastinum: The imaged thyroid gland is normal. No lymphadenopathy in the supraclavicular, axillary, mediastinal, or hilar regions. Heart, pericardium, and thoracic vessels: The thoracic aorta and main pulmonary artery are normal in caliber. The cardiac chambers are normal in size. No coronary artery atherosclerotic calcifications are noted, although the study is not optimized for coronary assessment. No pericardial effusion or thickening. Abdomen / Pelvis: Liver: There are 2 cysts in the liver measuring up to 2.9 cm in the inferior right hepatic lobe. Biliary: The gallbladder is unremarkable. Spleen: No splenomegaly. Pancreas: Unremarkable. Adrenals: No mass. Kidneys: No calculus, hydronephrosis or finding to suggest a cyst or mass in the unenhanced kidney. GI Tract: No bowel dilation. There is a moderate-sized hiatal hernia. The appendix is unremarkable. Lymph Nodes: No lymphadenopathy. Mesentery/peritoneum: No ascites. Retroperitoneum: No mass. Vasculature: Normal caliber of the abdominal aorta. Pelvis: No mass or ascites. Hysterectomy. Bones/Soft Tissues: No acute abnormality. Oyster Sorter (topogram) images: No additional findings. IMPRESSION: Focal area of airspace opacity in the lingula measuring 8 mm. This appears somewhat nodular. The recommendations as below. Moderate-sized hiatal hernia Incidental Finding: Follow-up Acuity: Incidental Finding: Solid 6-8 mm (solitary nodule) Routing Code: RI_1 Recommendation: CT Chest WO IVCON Time Frame: 6-12 months Comments: If stable on follow-up imaging, a repeat chest CT exam in 12 months (18-24 months from the initial exam) is recommended Overlock Waistline Joiner: DUTCH Transcribe Date/Time: Nov 30 2020 10:56P Dictated by : FRANCESCO MANRIQUEZ MD This examination was interpreted and the report reviewed and electronically signed by: FRANCESCO MANRIQUEZ MD on Nov 30 2020 11:12PM EST Past 72 Hour Labs: Recent Labs 11/30/202050 CK 131 WBC 6.50 RBC 3.09* HB 6.1* HCT 22.9* MCV 74.1* MCH 19.7* MCHC 26.6* RDWCV 17.1* PLT 368 MPV 9.4 NEUTP 75.4 LYMPHP 12.3 MONOP 9.7 EODINP 1.5 BASOP 1.1 ABSNEUT 4.88 ABSMONO 0.63 ABSEOSIN 0.10 ABSBASO 0.07 GLUC 106* BUN 30* CREAT 1.84* NA 134* K 3.7 CHLOR 100 CO2 22 TPROT 7.2 ALB 4.2 CA 9.0 ALKPHOS 57 TBILI 0.2 AST 25 ALT 13 Medication and Non-Pharmacologic VTE Prophylaxis/Anticoagula nts Anticoagulant AND Antiplatelet Medications (From admission, onward) Start Dose Route Frequency Ordered Stop 12/02/20 0900 enoxaparin 30 mg injection (LOVENOX) (Medical Risk Categories) 30 mg SUBCUTANEOUS DAILY 12/01/20 0234 -- 12/01/20 0900 aspirin, enteric coated 81 mg tab(s) 81 mg ORAL DAILY 12/01/20 0234 -- 12/01/20 0245 pneumatic compression stockings ([place]) 12/01/20 0245 activity - mobilize patient ([place]) VTE Prophylaxis: VTE prophylaxis appropriate ASSESSMENT/PLAN: Principal Problem: Symptomatic anemia POA: Unknown Active Problems: Acute renal insufficiency POA: Yes Myalgias POA: Yes Exertional dyspnea POA: Yes Elevated d-dimer POA: Yes Plan: -tele -2 units PRBCs ordered -repeat cbc, cmp in a.m. -CK wnl- no concern for rhabdo -defer to attending for consults -awaiting VQ scan in a.m. -received weight based dose of lovenox in ER, ordered lovenox 30 mg daily -GI consult Resolved Problems: * No resolved hospital problems. * SIGNATURE: Sally Hannon APRN.CNP PATIENT NAME: Shine Min DATE: December 01, 2020 TIME: 4:16 AM PAGER/CONTACT #: [phone] Normal [facility] PROGRESS HNO ID: [id number] Author: Yadira Barrios (Pharmacist) Service: Pharmacy Author Type: Pharmacist Type: Progress Notes Filed: 12/01/2020 2:47 AM Note Text: PHARMACY PROGRESS NOTE Patient Name: Shine Min Admission Date: 11/30/2020 Date of Consult: 12/01/2020 Time of Consult: 2:47 AM In accordance with the inpatient pharmacy consult agreement the following medication changes have been made: Renal dosing Discontinue enoxaparin 40mg subQ daily, change to 30mg subQ daily per renal dosing guidelines. Creatinine (mg/dL) Date Value 11/30/2020 1.84 (H) CrCl: Estimated Creatinine Clearance: 29.1 mL/min (A) (based on SCr of 1.84 mg/dL (H)). Pharmacy will continue to monitor patient for continued eligibility of these medication changes. Please call with any questions or concerns. SIGNATURE: YADIRA BARRIOS, PHARMD, [facility] DATE/TIME: 12/01/2020 2:47 AM [facility] Reticulocyteon 12-01-2020 Abs Retic 0.047 M/uL Normal 0.0180-0.100 0 [facility] Comment on above: Performed By: #### I LEXII, RETIC ####[facility] [address] [place] [address] Retic% 1.3 % Normal 0.4-2.0 [facility] Comment on above: Performed By: #### I LEXII, RETIC ####[facility] [address] [place], [place] [id number] Troponin Ton 12-01-2020 Troponin T.cardiac [Mass/Vol] ug/L Normal 0.000-0.029 [facility] Comment on above: Performed By: #### T NT ####[facility] [address] [place], [place] [id number] Troponin T.cardiac [Mass/Vol] ug/L Normal 0.000-0.029 [facility] Comment on above: Performed By: #### T NT ####[facility] [address] [place] [address] ALLIED HEALTHon 11-30-2020 ALLIED HEALTH HNO ID: [id number] Author: Camelia (Rt) Rajendra Orellana Service: Radiology Author Type: [employer] Leader Type: Allied Health Filed: 11/30/2020 9:34 PM Note Text: Radiology Service Progress Note PATIENT NAME: Shine Min DATE OF SERVICE: November 30, 2020 TIME: 9:34 PM PATIENT IDENTITY VERIFICATION COMPLETED USING TWO (2) IDENTIFIERS: Name and Date of confirmed by patient verbally. FALL SCREENING: Has the patient had 2 falls in the last year or 1 fall with injury or currently using an Ambulatory Assistive Device (Walker, Cane, Wheelchair, Crutches, etc.)? Emergency Room Patient: Screened in ED PATIENT GENDER DATA: Female. status: : No status: NO. PATIENT RELEVANT IMPLANT DATA REVIEWED: Not Applicable RADIOLOGY DEPARTMENT: General X-ray: Exam(s) Completed: Chest X-Ray PERIPHERAL IV DATA: Not applicable SIGNED BY: RT Carolyn November 30, 2020 9:34 PM Normal [facility] CBC and Differentialon 11-30 Abs Baso 0.07 k/uL Normal <0.11 [facility] Comment on above: Performed By: #### C BCDIF CMP ####[facility] [address] [place] [address] Abs [place] 0.63 k/uL Normal <0.87 [facility] Comment on above: Performed By: #### C BCDIF CMP ####[facility] [address] [place] [address] Abs Neut 4.88 k/uL Normal 1.45-7.50 [facility] Comment on above: Performed By: #### C BCDIF CMP ####[facility] [address] [place] [address] Absolute nRBC <0.01 Normal <0.01 [facility] Comment on above: Performed By: #### C BCDIF CMP ####[facility] [address] [place] [address] Basophils/100 WBC (Bld) 1.1 % Normal [facility] Comment on above: Performed By: #### C BCDIF, CMP ####[place] [address] DTYPE Auto Diff Normal [facility] Comment on above: Performed By: #### C BCDIF, CMP ####[place] [address] Eosinophils (Bld) [#/Vol] 0.10 10*3/uL Normal <0.46 [facility] Comment on above: Performed By: #### C BCDIF, CMP ####[facility] [address] [place] [address] Eosinophils/100 WBC (Bld) 1.5 % Normal [facility] Comment on above: Performed By: #### C BCRICKF CMP ####[place] [address] Erythrocyte distribution width (RBC) [Ratio] 17.1 % High 11.5-15.0 [facility] Comment on above: Performed By: #### C BCDIF, CMP ####[place] [address] Hematocrit (Bld) [Volume fraction] 22.9 % Low 36.0-46.0 [facility] Comment on above: Performed By: #### C BCDIF, CMP ####[place] [address] Hemoglobin (Bld) [Mass/Vol] 6.1 g/dL Low 11.5-15.5 [facility] Comment on above: Performed By: #### C BCDIF, CMP ####[facility] [address] [place] [address] Lymphocytes (Bld) [#/Vol] 0.80 10*3/uL Low 1.00-4.00 [facility] Comment on above: Performed By: #### C BCDIF, CMP ####[place] [address] Lymphocytes/100 WBC (Bld) 12.3 % Normal [facility] Comment on above: Performed By: #### C BCDIF, CMP ####[place] [address] MCH (RBC) [Entitic mass] 19.7 pG Low 26.0-34.0 [facility] Comment on above: Performed By: #### C BCDIF, CMP ####[facility] [address] [place] [address] MCHC (RBC) [Mass/Vol] 26.6 g/dL Low 30.5-36.0 [facility] Comment on above: Performed By: #### C BCDIF, CMP ####[facility] [address] [place] [address] MCV (RBC) [Entitic vol] 74.1 fL Low 80.0-100.0 [facility] Comment on above: Performed By: #### C BCDIF, CMP ####[place] [address] Monocytes/100 WBC (Bld) 9.7 % Normal [facility] Comment on above: Performed By: #### C BCDIF, CMP ####[place] [address] Neutrophils/100 WBC (Bld) 75.4 % Normal [facility] Comment on above: Performed By: #### C BCDIF, CMP ####[facility] [address] [place] [address] NRBCs 0.0 /100 WBC Normal 0 [facility] Comment on above: Performed By: #### C BCDIF, CMP ####[place] [address] Platelet mean volume (Bld) [Entitic vol] 9.4 fL Normal 9.0-12.7 [facility] Comment on above: Performed By: #### C BCDIF, CMP ####[facility] [address] [place] [address] Platelets (Bld) [#/Vol] 368 10*3/uL Normal 150-400 [facility] Comment on above: Performed By: #### C BCDIF, CMP ####[facility] [address] [place] [address] RBC (Bld) [#/Vol] 3.09 10*6/uL Low 3.90-5.20 [facility] Comment on above: Performed By: #### C BCDIF, CMP ####[facility] [address] [place] [address] WBC (Bld) [#/Vol] 6.50 10*3/uL Normal 3.70-11.00 [facility] Comment on above: Performed By: #### C BCDIF, CMP ####[facility] [address] [place] [address] CKon 11-30-2020 CK [Catalytic activity/Vol] 131 U/L Normal 42-196 [facility] Comment on above: Performed By: #### C K, LIPA ####[facility] [address] [place] [address] Comp Metabolic Panelon 11-30 Albumin [Mass/Vol] 4.2 g/dL Normal 3.9-4.9 [facility] Comment on above: Performed By: #### C BCRICKF, CMP ####[facility] [address] [place] [address] ALP [Catalytic activity/Vol] 57 U/L Normal 34-123 [facility] Comment on above: Performed By: #### C BCDIF, CMP ####[facility] [address] [place] [address] ALT [Catalytic activity/Vol] 13 U/L Normal 7-38 [facility] Comment on above: Performed By: #### C BCDIF, CMP ####[facility] [address] [place] [address] Anion gap [Moles/Vol] 12 mmol/L Normal 9-18 [facility] Comment on above: Performed By: #### C BCDIF, CMP ####[facility] [address] [place] [address] AST [Catalytic activity/Vol] 25 U/L Normal 13-35 [facility] Comment on above: Performed By: #### C BCDIF, CMP ####[facility] [address] [place] [address] Bilirubin [Mass/Vol] 0.2 mg/dL Normal 0.2-1.3 [facility] Comment on above: Performed By: #### C BCDIF, CMP ####[facility] [address] [place] [address] Calcium [Mass/Vol] 9.0 mg/dL Normal 8.5-10.2 [facility] Comment on above: Performed By: #### C BCDIF, CMP ####[facility] [address] [place] [address] Chloride [Moles/Vol] 100 mmol/L Normal 97-105 [facility] Comment on above: Performed By: #### C BCDIF, CMP ####[facility] [address] [place] [id number] CO2 [Moles/Vol] 22 mmol/L Normal 22-30 [facility] Comment on above: Performed By: #### C BCDIF, CMP ####[facility] [address] [place] [address] Creatinine [Mass/Vol] 1.84 mg/dL High 0.58-0.96 [facility] Comment on above: Performed By: #### C BCDIF, CMP ####[facility] [address] [place] [address] eGFR- Amer. 33 Normal [facility] Comment on above: Performed By: #### C BCDIF, CMP ####[facility] [address] [place] [id number] GFR/1.73 sq M predicted among non-blacks MDRD (S/P/Bld) [Vol rate/Area] 27 . Normal [facility] Comment on above: Result Comment: eGFR (Estimated GFR) Units of measure: mL/min/1.73 meters squared eGFR is derived from the reexpressed MDRD Study equation using the following parameters: serum creatinine, age, gender and race. The creatinine assay has been calibrated to be traceable to IDMS. An eGFR <60 mL/min/1.73m2 for >3 months is consistent with chronic kidney disease. Refer to KDOQI guidelines for clinical interpretation. In patients with unstable renal function, e.g. those with acute kidney injury, the eGFR may not accurately reflect actual GFR. Performed By: #### C BCDIF, CMP ####[facility] [address] [place] [id number] Glucose [Mass/Vol] 106 mg/dL High 74-99 [facility] Comment on above: Result Comment: The [place] Diabetes Association (ADA) provides guidance for cutoff values for fasting glucose and random glucose. The ADA defines fasting as no caloric intake for at least 8 hours. Fasting plasma glucose results between 100 to 125 mg/dL indicate increased risk for diabetes (prediabetes). Fasting plasma glucose results greater than or equal to 126 mg/dL meet the criteria for diagnosis of diabetes. In the absence of unequivocal hyperglycemia, results should be confirmed by repeat testing. In a patient with classic symptoms of hyperglycemia or hyperglycemic crisis, random plasma glucose results greater than or equal to 200 mg/dL meet the criteria for diagnosis of diabetes. Reference: Standards of Medical Care in Diabetes 2016, [place] Diabetes Association. Diabetes Care. 2016.39(Suppl 1). Performed By: #### C BCDIF, CMP ####[facility] [address] [place] [address] Potassium [Moles/Vol] 3.7 mmol/L Normal 3.7-5.1 [facility] Comment on above: Performed By: #### C BCDIF, CMP ####[facility] [address] [place] [address] Protein [Mass/Vol] 7.2 g/dL Normal 6.3-8.0 [facility] Comment on above: Performed By: #### C BCDIF, CMP ####[facility] [address] [place], [place] [id number] Sodium [Moles/Vol] 134 mmol/L Low 136-144 [facility] Comment on above: Performed By: #### C BCDIF, CMP ####[facility] [address] [place], [place] [phone] Urea nitrogen [Mass/Vol] 30 mg/dL High 7-21 [facility] Comment on above: Performed By: #### C BCDIF, CMP ####[facility] [address] [place], [place] [id number] D dimeron 11-30-2020 D dimer 1690 ng/mL FEU High <500 [facility] Comment on above: Result Comment: 500 ng/mL FEU is the D Dimer cutoff to exclude DVT (deep vein thrombosis) and PE (pulmonary embolism) in patients with a low pre test probability. Supplemental Comment: In patients over 50 years with a low pre test probability for DVT and/or PE, an age adjusted D dimer cutoff can be calculated as [age x 10] ng/mL FEU. For example, a patient of 88 years would have an age adjusted D dimer cutoff of 880 ng/mL FEU. For patients with a suspected DVT, a D dimer level below 500 ng/mL FEU has a negative predictive value of >98.9%, a sensitivity of >96.9% and a specificity of >35.7%. For patients with a suspected PE, a D dimer level below 500 ng/mL FEU has a negative predictive value of >98.5%, and a sensitivity of >96.5% and a specificity of >38.8%. Reference: Brenda M, et al. JIAN 2014 311:1117 and Van Lydia N, et al. Sajan Int Med 2016 165:253. Performed By: #### D DMER #### [facility] [address] [facility] [phone] ED NOTEon 11-30-2020 ED NOTE HNO ID: [id number] Author: Irlanda Dior) CAMERON Gates Service: ? Author Type: Registered Nurse Type: ED Notes Filed: 11/30/2020 10:09 PM Note Text: repeat labs sent /occult sent. [facility] ED NOTE HNO ID: [id number] Author: Irlanda Dior) CAMERON Gates Service: ? Author Type: Registered Nurse Type: ED Notes Filed: 11/30/2020 9:44 PM Note Text: dr mckee in room to see pt. [facility] ED NOTE HNO ID: [id number] Author: Dulce Dior) CAMERON Nobles Service: Nursing Author Type: Registered Nurse Type: ED Notes Filed: 11/30/2020 9:23 PM Note Text: Report given to Irlanda BARNES [facility] ED NOTE HNO ID: [id number] Author: Irlanda Dior) CAMERON Gates Service: ? Author Type: Registered Nurse Type: ED Notes Filed: 11/30/2020 7:51 PM Note Text: pt has had shoulder pain for 2 weeks. history of rhabdo. pt has had SOB for past 2 weeks and upper back pain. pt states she was seen by PA today.and was told to come in. [facility] ED PROV NOTEon 11-30-2020 ED PROV NOTE HNO ID: [id number] Author: Kennedi Mckee MD Service: Emergency Medicine Author Type: Physician Type: ED Provider Notes Filed: 11/30/2020 11:45 PM Note Text: ED Provider Note Patient Name: Shine Min SERVICE DATE: 11/30/20 History Patient presents with: Pain (Shoulder Pain): for about 2 weeks Shortness of Breath Back Pain: upper back pain Patient presents for 2 weeks of multiple complaints, starting with right shoulder pain that felt like a toothache. Patient has a history of rhabdomyolysis secondary to statins, and was eventually placed on a low-dose different statin that she tolerated well. She thought at first this was a statin effect and she stopped taking it. Initially she felt better but then started having the discomfort again. She then developed the tooth ache-like feeling across her back in the bra strap region. She is now having muscle cramping in the legs and feet, arthralgias in the hips and knees, shortness of breath with mild exertion, and coughing to the point of emesis of bile. Patient is a former smoker and quit 37 years ago. History reviewed. No pertinent past medical history. History reviewed. No pertinent surgical history. FAMILY HISTORY Problem Relation Age of Onset - Cancer Father - Hypertension Mother - Cataract Mother - Glaucoma Mother - Macular Degen Mother Social History Tobacco Use - Smoking status: Never Smoker - Smokeless tobacco: Never Used Substance and Sexual Activity - Alcohol use: Not on file - Drug use: Not on file - Sexual activity: Not on file ALLERGIES Allergen Reactions - Penicillins Unknown - Chztwsb-Lod-Hbh Red* Unknown - Sulfa (Sulfonamide * Unknown Review of Systems Constitutional: Positive for fatigue. Negative for fever and unexpected weight change. All other systems negative except as documented in the HPI. HENT: Negative for congestion, rhinorrhea and sore throat. Eyes: Negative for pain and discharge. Respiratory: Positive for cough and shortness of breath. Cardiovascular: Positive for leg swelling (Chronic). Negative for chest pain and palpitations. Gastrointestinal: Positive for abdominal pain, nausea and vomiting. Negative for constipation and diarrhea. Genitourinary: Negative for dysuria, frequency and urgency. Musculoskeletal: Positive for arthralgias, back pain and myalgias. Negative for neck pain. Skin: Negative for pallor and rash. Neurological: Positive for weakness. Negative for dizziness and headaches. Hematological: Does not bruise/bleed easily. All other systems reviewed and are negative. Physical Exam BP 137/67 Pulse 92 Temp (Src) 98.5 (Oral) Resp 19 Wt 198 lb (89.8kg) SpO2 97% O2 Therapy: Room Air Physical Exam Vitals and nursing note reviewed. Constitutional: General: She is in acute distress. Appearance: She is well-developed. She is ill-appearing. HENT: Head: Normocephalic and atraumatic. Eyes: Extraocular Movements: Extraocular movements intact. Conjunctiva/sclera: Conjunctivae normal. Pupils: Pupils are equal, round, and reactive to light. Comments: Conjunctiva pallor Cardiovascular: Rate and Rhythm: Regular rhythm. Tachycardia present. Pulses: Normal pulses. Radial pulses are 2+ on the right side and 2+ on the left side. Posterior tibial pulses are 2+ on the right side and 2+ on the left side. Heart sounds: Normal heart sounds. No murmur. Pulmonary: Effort: Tachypnea and respiratory distress (Mild) present. Breath sounds: Rhonchi (Very mild) present. Abdominal: General: Bowel sounds are normal. Palpations: Abdomen is soft. Tenderness: There is abdominal tenderness in the epigastric area and left upper quadrant. Musculoskeletal: General: No tenderness. Normal range of motion. Cervical back: Normal range of motion and neck supple. No muscular tenderness. Right lower leg: Edema present. Left lower leg: No edema. Comments: Full active range of motion of the right shoulder without any tenderness. No tenderness to palpation of the midline spine, no tenderness to palpation of the paraspinal regions Skin: General: Skin is warm and dry. Coloration: Skin is pale. Findings: No lesion or rash. Neurological: General: No focal deficit present. Mental Status: She is alert and oriented to person, place, and time. Psychiatric: Mood and Affect: Mood normal. Behavior: Behavior normal. Diagnostic Testing ED Labs Ordered and Reviewed COMP METABOLIC PANEL - Abnormal; Notable for the following components: Result Value Ref Range Glucose 106 (*) 74 - 99 mg/dL BUN 30 (*) 7 - 21 mg/dL Creatinine 1.84 (*) 0.58 - 0.96 mg/dL Sodium 134 (*) 136 - 144 mmol/L All other components within normal limits HIGH SENSITIVITY TROPONIN T - Abnormal; Notable for the following components: FRANCINE High Sensitivity 14 (*) <12 ng/L All other components within normal limits HIGH SENSITIVITY TROPONIN T - Abnormal; Notable for the following components: FRANCINE High Sensitivity 16 (*) <12 ng/L All other components within normal limits CBC + DIFF - Abnormal; Notable for the following components: RBC 3.09 (*) 3.90 - 5.20 m/uL Hemoglobin 6.1 (*) 11.5 - 15.5 g/dL Hematocrit 22.9 (*) 36.0 - 46.0 % MCV 74.1 (*) 80.0 - 100.0 fL MCH 19.7 (*) 26.0 - 34.0 pG MCHC 26.6 (*) 30.5 - 36.0 g/dL RDW-CV 17.1 (*) 11.5 - 15.0 % Abs Lymph 0.80 (*) 1.00 - 4.00 k/uL All other components within normal limits D-DIMER - Abnormal; Notable for the following components: d Dimer 1,690 (*) <500 ng/mL FEU All other components within normal limits CK CREATINE KINASE LIPASE BLD HIGH SENSITIVITY TROPONIN T FERRITIN BLD FOLATE SERUM HAPTOGLOBIN BLD LD LACTATE DEHYDRO RETIC COUNT IRON + TIBC VITAMIN B12 BLOOD TYPE AND SCREEN CONFIRM BLOOD TYPE OCCULT BLD EXAM-DIAG EXPEDITED COVID19 RED BLOOD [address] CHEST WO IVCON Final Result Abnormal IMPRESSION: Focal area of airspace opacity in the lingula measuring 8 mm. This appears somewhat nodular. The recommendations as below. Moderate-sized hiatal hernia Incidental Finding: Follow-up Acuity: Incidental Finding: Solid 6-8 mm (solitary nodule) Routing Code: RI_1 Recommendation: CT Chest WO IVCON Time Frame: 6-12 months Comments: If stable on follow-up imaging, a repeat chest CT exam in 12 months (18-24 months from the initial exam) is recommended Overlock Waistline Joiner: DUTCH Transcribe Date/Time: Nov 30 2020 10:56P Dictated by : FRANCESCO MANRIQUEZ MD This examination was interpreted and the report reviewed and electronically signed by: FRANCESCO MANRIQUEZ MD on Nov 30 2020 11:12PM EST CT ABD/PEL WO IVCON Final Result Abnormal IMPRESSION: Focal area of airspace opacity in the lingula measuring 8 mm. This appears somewhat nodular. The recommendations as below. Moderate-sized hiatal hernia Incidental Finding: Follow-up Acuity: Incidental Finding: Solid 6-8 mm (solitary nodule) Routing Code: RI_1 Recommendation: CT Chest WO IVCON Time Frame: 6-12 months Comments: If stable on follow-up imaging, a repeat chest CT exam in 12 months (18-24 months from the initial exam) is recommended Overlock Waistline Joiner: DUTCH Transcribe Date/Time: Nov 30 2020 10:56P Dictated by : FRANCESCO MANRIQUEZ MD This examination was interpreted and the report reviewed and electronically signed by: FRANCESCO MANRIQUEZ MD on Nov 30 2020 11:12PM EST XR CHEST 1V FRONTAL PORT Final Result IMPRESSION: No acute radiographic abnormality. Hiatal hernia. Overlock Waistline Joiner: DUTCH Transcribe Date/Time: Nov 30 2020 9:42P Dictated by : CANDI RAMIRES MD This examination was interpreted and the report reviewed and electronically signed by: CANDI RAMIRES MD on Nov 30 2020 9:43PM EST NM LUNG VENT / PERF VQ (Results Pending) Medications enoxaparin 90 mg injection (LOVENOX) (has no administration in time range) NaCl 0.9% 1,000 mL iv bolus (1,000 mL INTRAVENOUS New Bag/Syringe/Bottle 11/30/202229) Procedures ED Course / Clinical Impression ED Course as of Nov 30 2339 Kennedi Mckee's Documentation Fri Nov 30, [id number] HR 97, normal sinus rhythm, normal DE and QRS duration, normal QTc interval, no fascicular, bundle branch or AV block. No ST or T-wave changes. No STEMI. ECG COMPLETE Clinical Impressions as of Nov 30 2339 Symptomatic anemia Acute renal insufficiency Myalgias Arthralgia, unspecified joint Exertional dyspnea Elevated d-dimer COVID-19 test performed per [facility] [place] policy for suspected COVID community exposure. MDM / Disposition / Plan Course: Vital signs were reviewed. Triage records were reviewed. Medical records were reviewed. Nursing notes were reviewed and incorporated. Medical Decision Making: Patient presents with multiple complaints, with the most concerning being her dyspnea on exertion and her apparent shortness of breath at rest during exam. Differential includes, but is not limited to, medication reaction, rhabdomyolysis, electrolyte abnormalities, dehydration, pulmonary embolism, pneumonia, malignancy, lower GI bleed, viral syndrome. Patient's labs were notable for hemoglobin of 6. No leukocytosis, leukopenia or thrombocytopenia. No significant electrolyte abnormalities. BUN elevated at 30 with creatinine of 1.84. No recent labs for comparison to see if this is acute or chronic renal insufficiency. Initial 2 high-sensitivity troponins were mildly elevated at 14 and 16 respectively. D-dimer was performed due to concern for possible pulmonary embolism, and it was significantly elevated at 1600. Because of patient's renal function, she is not appropriate for intravenous contrast for a CTA PE study. CK was within normal limits. Lipase normal. CT of the chest, abdomen and pelvis was performed to look for any findings concerning for infectious findings, masses, or concerns for malignancy., There was an 8 mm focal area of airspace opacity in the lingula and a hiatal hernia. Otherwise no acute findings to explain patient's presentation. CT of the chest has been performed, and VQ scan has been ordered for the morning. Patient was empirically treated with treatment dose Lovenox in the emergency department since pulmonary embolism has not yet been ruled out. Patient was also typed and crossed for 2 units of packed red blood cells. She was guaiac negative, and anemia labs were ordered and performed prior to the transfusion to further work-up the cause of patient's symptomatic anemia of unknown origin. Patient was discussed with Dr. May Crum and admitted for further work-up and management of patient's multiple complaints, including her symptomatic anemia of unknown etiology, shortness of breath with concern for possible pulmonary embolism, and her renal insufficiency, acute versus chronic. Critical Care I spent a total of 45 minutes of critical care time in the evaluation and management of this patient,, including emergent evaluation, coordination of care, frequent reassessments, and documentation. This was necessary to treat or prevent deterioration of the following condition(s): Cardiovascular impairment, Respiratory impairment, Severe metabolic abnormality and Severe endocrine abnormality, which the patient had and/or has a high probability of suddenly developing. The patient received lovenox, IV Fluids and Packed Red Blood Cells Transfusion during the time that critical care was provided. Critical care time excludes separately billed procedures. Kennedi Mckee MD SIGNATURE: MD Kennedi Rivas MD 11/30/20 1252 Normal [facility] Ferritinon 11-30-2020 Ferritin [Mass/Vol] 3.7 ng/mL Low 14.7-205.1 [facility] Comment on above: Performed By: #### F ERR, B12, SERFOL ####[facility] [id number] [phone] Folate, Serumon 11-30-2020 Folate [Mass/Vol] 16.8 ng/mL Normal >4.7 [facility] Comment on above: Performed By: #### F ERR, B12, SERFOL ####[facility] [id number] [phone] HOSPon 11-30-2020 HOSP Patient:Sanjay Min MRN: Height:5' 0(1.524 m) Weight:196 lb 13.9 oz (89.3 kg) Outpatient Medications as of 12/03/20: levothyroxine sodium (LEVOTHYROXINE ORAL) lisinopril-hydrochlorot hiazide (PRINZIDE,ZESTORETIC) 20-12.5 mg per tablet ezetimibe (ZETIA ORAL) aspirin, enteric coated (ASPIRIN, ENTERIC COATED) 81 mg EC tablet atorvastatin calcium (ATORVASTATIN ORAL) iron,carb/vit C/vit B12/folic (IRON 100 PLUS ORAL) niacin ER (NIASPAN) 500 mg tablet Admission/Clinic Administered Medications as of 12/03/20: lactated ringers infusion acetaminophen 650 mg tab(s) (TYLENOL) niacin ER 500 mg tab(s) (NIASPAN) levothyroxine 75 mcg tab(s) (SYNTHROID) ezetimibe 10 mg tab(s) (ZETIA) sodium chloride 0.9 % (flush) 3-5 mL (BD POSIFLUSH) lisinopril 20 mg tab(s) (ZESTRIL, PRINIVIL) pantoprazole DR 40 mg tab(s) (PROTONIX) ferric gluconate 125 mg in NaCl 0.9% 100 mL (FERRLECIT) docusate sodium 100 mg cap(s) (COLACE) Problem List: Presbyopia [H52.4] Symptomatic anemia [D64.9] Acute renal insufficiency [N28.9] Myalgias [M79.10] Exertional dyspnea [R06.00] Elevated d-dimer [R79.89] Allergies: Penicillins Vtpfexa-Xpk-Bpq Reductase Inhibitors Sulfa (Sulfonamide Antibiotics) Date Verified: 12/03/20 Lab Values Lab Value Units Date High Low POTA* 4.3 mmol/L 12/03/2020 5.1 3.7 YAMILET* 29.5 % 12/03/2020 46.0 36.0 Progress Notes (): Irlanda Gates RN, RN 11/30/2020 7:51 PM Signed pt has had shoulder pain for 2 weeks. history of rhabdo. pt has had SOB for past 2 weeks and upper back pain. pt states she was seen by PA today.and was told to come in. Dulce Nobles RN, RN 11/30/2020 9:23 PM Signed Report given to RT Redding RN, Rajendra 11/30/2020 9:34 PM Signed Radiology Service Progress Note PATIENT NAME: Shine Min DATE OF SERVICE: November 30, 2020 TIME: 9:34 PM PATIENT IDENTITY VERIFICATION COMPLETED USING TWO (2) IDENTIFIERS: Name and Date of confirmed by patient verbally. FALL SCREENING: Has the patient had 2 falls in the last year or 1 fall with injury or currently using an Ambulatory Assistive Device (Walker, Cane, Wheelchair, Crutches, etc.)? Emergency Room Patient: Screened in ED PATIENT GENDER DATA: Female. status: : No status: NO. PATIENT RELEVANT IMPLANT DATA REVIEWED: Not Applicable RADIOLOGY DEPARTMENT: General X-ray: Exam(s) Completed: Chest X-Ray PERIPHERAL IV DATA: Not applicable SIGNED BY: RT Carolyn November 30, 2020 9:34 PM Irlanda Gates RN, RN 11/30/2020 9:[address] mckee in room to see pt. Kennedi Mckee MD, MD 11/30/2020 11:45 PM Signed ED Provider Note Patient Name: Shine Min SERVICE DATE: 11/30/20 History Patient presents with: Pain (Shoulder Pain): for about 2 weeks Shortness of Breath Back Pain: upper back pain Patient presents for 2 weeks of multiple complaints, starting with right shoulder pain that felt like a toothache. Patient has a history of rhabdomyolysis secondary to statins, and was eventually placed on a low-dose different statin that she tolerated well. She thought at first this was a statin effect and she stopped taking it. Initially she felt better but then started having the discomfort again. She then developed the tooth ache-like feeling across her back in the bra strap region. She is now having muscle cramping in the legs and feet, arthralgias in the hips and knees, shortness of breath with mild exertion, and coughing to the point of emesis of bile. Patient is a former smoker and quit 37 years ago. History reviewed. No pertinent past medical history. History reviewed. No pertinent surgical history. FAMILY HISTORY Problem Relation Age of Onset - Cancer Father - Hypertension Mother - Cataract Mother - Glaucoma Mother - Macular Degen Mother Social History Tobacco Use - Smoking status: Never Smoker - Smokeless tobacco: Never Used Substance and Sexual Activity - Alcohol use: Not on file - Drug use: Not on file - Sexual activity: Not on file ALLERGIES Allergen Reactions - Penicillins Unknown - Xuhmwoc-Zhl-Bsz Red* Unknown - Sulfa (Sulfonamide * Unknown Review of Systems Constitutional: Positive for fatigue. Negative for fever and unexpected weight change. All other systems negative except as documented in the HPI. HENT: Negative for congestion, rhinorrhea and sore throat. Eyes: Negative for pain and discharge. Respiratory: Positive for cough and shortness of breath. Cardiovascular: Positive for leg swelling (Chronic). Negative for chest pain and palpitations. Gastrointestinal: Positive for abdominal pain, nausea and vomiting. Negative for constipation and diarrhea. Genitourinary: Negative for dysuria, frequency and urgency. Musculoskeletal: Positive for arthralgias, back pain and myalgias. Negative for neck pain. Skin: Negative for pallor and rash. Neurological: Positive for weakness. Negative for dizziness and headaches. Hematological: Does not bruise/bleed easily. All other systems reviewed and are negative. Physical Exam BP 137/67 Pulse 92 Temp (Src) 98.5 (Oral) Resp 19 Wt 198 lb (89.8kg) SpO2 97% O2 Therapy: Room Air Physical Exam Vitals and nursing note reviewed. Constitutional: General: She is in acute distress. Appearance: She is well-developed. She is ill-appearing. HENT: Head: Normocephalic and atraumatic. Eyes: Extraocular Movements: Extraocular movements intact. Conjunctiva/sclera: Conjunctivae normal. Pupils: Pupils are equal, round, and reactive to light. Comments: Conjunctiva pallor Cardiovascular: Rate and Rhythm: Regular rhythm. Tachycardia present. Pulses: Normal pulses. Radial pulses are 2+ on the right side and 2+ on the left side. Posterior tibial pulses are 2+ on the right side and 2+ on the left side. Heart sounds: Normal heart sounds. No murmur. Pulmonary: Effort: Tachypnea and respiratory distress (Mild) present. Breath sounds: Rhonchi (Very mild) present. Abdominal: General: Bowel sounds are normal. Palpations: Abdomen is soft. Tenderness: There is abdominal tenderness in the epigastric area and left upper quadrant. Musculoskeletal: General: No tenderness. Normal range of motion. Cervical back: Normal range of motion and neck supple. No muscular tenderness. Right lower leg: Edema present. Left lower leg: No edema. Comments: Full active range of motion of the right shoulder without any tenderness. No tenderness to palpation of the midline spine, no tenderness to palpation of the paraspinal regions Skin: General: Skin is warm and dry. Coloration: Skin is pale. Findings: No lesion or rash. Neurological: General: No focal deficit present. Mental Status: She is alert and oriented to person, place, and time. Psychiatric: Mood and Affect: Mood normal. Behavior: Behavior normal. Diagnostic Testing ED Labs Ordered and Reviewed COMP METABOLIC PANEL - Abnormal; Notable for the following components: Result Value Ref Range Glucose 106 (*) 74 - 99 mg/dL BUN 30 (*) 7 - 21 mg/dL Creatinine 1.84 (*) 0.58 - 0.96 mg/dL Sodium 134 (*) 136 - 144 mmol/L All other components within normal limits HIGH SENSITIVITY TROPONIN T - Abnormal; Notable for the following components: FRANCINE High Sensitivity 14 (*) <12 ng/L All other components within normal limits HIGH SENSITIVITY TROPONIN T - Abnormal; Notable for the following components: FRANCINE High Sensitivity 16 (*) <12 ng/L All other components within normal limits CBC + DIFF - Abnormal; Notable for the following components: RBC 3.09 (*) 3.90 - 5.20 m/uL Hemoglobin 6.1 (*) 11.5 - 15.5 g/dL Hematocrit 22.9 (*) 36.0 - 46.0 % MCV 74.1 (*) 80.0 - 100.0 fL MCH 19.7 (*) 26.0 - 34.0 pG MCHC 26.6 (*) 30.5 - 36.0 g/dL RDW-CV 17.1 (*) 11.5 - 15.0 % Abs Lymph 0.80 (*) 1.00 - 4.00 k/uL All other components within normal limits D-DIMER - Abnormal; Notable for the following components: d Dimer 1,690 (*) <500 ng/mL FEU All other components within normal limits CK CREATINE KINASE LIPASE BLD HIGH SENSITIVITY TROPONIN T FERRITIN BLD FOLATE SERUM HAPTOGLOBIN BLD LD LACTATE DEHYDRO RETIC COUNT IRON + TIBC VITAMIN B12 BLOOD TYPE AND SCREEN CONFIRM BLOOD TYPE OCCULT BLD EXAM-DIAG EXPEDITED COVID[address] CHEST WO IVCON Final Result Abnormal IMPRESSION: Focal area of airspace opacity in the lingula measuring 8 mm. This appears somewhat nodular. The recommendations as below. Moderate-sized hiatal hernia Incidental Finding: Follow-up Acuity: Incidental Finding: Solid 6-8 mm (solitary nodule) Routing Code: RI_1 Recommendation: CT Chest WO IVCON Time Frame: 6-12 months Comments: If stable on follow-up imaging, a repeat chest CT exam in 12 months (18-24 months from the initial exam) is recommended Overlock Waistline Joiner: DUTCH Transcribe Date/Time: Nov 30 2020 10:56P Dictated by : FRANCESCO MANRIQUEZ MD This examination was interpreted and the report reviewed and electronically signed by: FRANCESCO MANRIQUEZ MD on Nov 30 2020 11:12PM EST CT ABD/PEL WO IVCON Final Result Abnormal IMPRESSION: Focal area of airspace opacity in the lingula measuring 8 mm. This appears somewhat nodular. The recommendations as below. Moderate-sized hiatal hernia Incidental Finding: Follow-up Acuity: Incidental Finding: Solid 6-8 mm (solitary nodule) Routing Code: RI_1 Recommendation: CT Chest WO IVCON Time Frame: 6-12 months Comments: If stable on follow-up imaging, a repeat chest CT exam in 12 months (18-24 months from the initial exam) is recommended Overlock Waistline Joiner: DUTCH Transcribe Date/Time: Nov 30 2020 10:56P Dictated by : FRANCESCO MANRIQUEZ MD This examination was interpreted and the report reviewed and electronically signed by: FRANCESCO MANRIQUEZ MD on Nov 30 2020 11:12PM EST XR CHEST 1V FRONTAL PORT Final Result IMPRESSION: No acute radiographic abnormality. Hiatal hernia. Overlock Waistline Joiner: PSCB Transcribe Date/Time: Nov 30 2020 9:42P Dictated by : CANDI RAMIRES MD This examination was interpreted and the report reviewed and electronically signed by: CANDI RAMIRES MD on Nov 30 2020 9:43PM EST NM LUNG VENT / PERF VQ (Results Pending) Medications enoxaparin 90 mg injection (LOVENOX) (has no administration in time range) NaCl 0.9% 1,000 mL iv bolus (1,000 mL INTRAVENOUS New Bag/Syringe/Bottle 11/30/202229) Procedures ED Course / Clinical Impression ED Course as of Nov 30 2339 Kennedi Mckee's Documentation ThuNov 30, 20202126 HR 97, normal sinus rhythm, normal DE and QRS duration, normal QTc interval, no fascicular, bundle branch or AV block. No ST or T-wave changes. No STEMI. ECG COMPLETE Clinical Impressions as of Nov 30 2339 Symptomatic anemia Acute renal insufficiency Myalgias Arthralgia, unspecified joint Exertional dyspnea Elevated d-dimer COVID-19 test performed per [facility] [place] policy for suspected COVID community exposure. MDM / Disposition / Plan Course: Vital signs were reviewed. Triage records were reviewed. Medical records were reviewed. Nursing notes were reviewed and incorporated. Medical Decision Making: Patient presents with multiple complaints, with the most concerning being her dyspnea on exertion and her apparent shortness of breath at rest during exam. Differential includes, but is not limited to, medication reaction, rhabdomyolysis, electrolyte abnormalities, dehydration, pulmonary embolism, pneumonia, malignancy, lower GI bleed, viral syndrome. Patient's labs were notable for hemoglobin of 6. No leukocytosis, leukopenia or thrombocytopenia. No significant electrolyte abnormalities. BUN elevated at 30 with creatinine of 1.84. No recent labs for comparison to see if this is acute or chronic renal insufficiency. Initial 2 high-sensitivity troponins were mildly elevated at 14 and 16 respectively. D-dimer was performed due to concern for possible pulmonary embolism, and it was significantly elevated at 1600. Because of patient's renal function, she is not appropriate for intravenous contrast for a CTA PE study. CK was within normal limits. Lipase normal. CT of the chest, abdomen and pelvis was performed to look for any findings concerning for infectious findings, masses, or concerns for malignancy., There was an 8 mm focal area of airspace opacity in the lingula and a hiatal hernia. Otherwise no acute findings to explain patient's presentation. CT of the chest has been performed, and VQ scan has been ordered for the morning. Patient was empirically treated with treatment dose Lovenox in the emergency department since pulmonary embolism has not yet been ruled out. Patient was also typed and crossed for 2 units of packed red blood cells. She was guaiac negative, and anemia labs were ordered and performed prior to the transfusion to further work-up the cause of patient's symptomatic anemia of unknown origin. Patient was discussed with Dr. May Crum and admitted for further work-up and management of patient's multiple complaints, including her symptomatic anemia of unknown etiology, shortness of breath with concern for possible pulmonary embolism, and her renal insufficiency, acute versus chronic. Critical Care I spent a total of 45 minutes of critical care time in the evaluation and management of this patient,, including emergent evaluation, coordination of care, frequent reassessments, and documentation. This was necessary to treat or prevent deterioration of the following condition(s): Cardiovascular impairment, Respiratory impairment, Severe metabolic abnormality and Severe endocrine abnormality, which the patient had and/or has a high probability of suddenly developing. The patient received lovenox, IV Fluids and Packed Red Blood Cells Transfusion during the time that critical care was provided. Critical care time excludes separately billed procedures. Kennedi Mckee MD SIGNATURE: MD Kennedi Rivas MD 11/30/20 2345 Previous Version Irlanda Gates RN, RN 11/30/2020 10:09 PM Signed repeat labs sent /occult sent. Irlanda Gates RN, RN 11/30/2020 10:09 PM Signed covid sent Irlanda Gates RN, RN 11/30/2020 11:[address] Mckee in room to talk with pt. YADIRA BARRIOS, PHARMACIST 12/01/2020 2:47 AM Signed PHARMACY PROGRESS NOTE Patient Name: Shine Min Admission Date: 11/30/2020 Date of Consult: 12/01/2020 Time of Consult: 2:47 AM In accordance with the inpatient pharmacy consult agreement the following medication changes have been made: Renal dosing Discontinue enoxaparin 40mg subQ daily, change to 30mg subQ daily per renal dosing guidelines. Creatinine (mg/dL) Date Value 11/30/2020 1.84 (H) CrCl: Estimated Creatinine Clearance: 29.1 mL/min (A) (based on SCr of 1.84 mg/dL (H)). Pharmacy will continue to monitor patient for continued eligibility of these medication changes. Please call with any questions or concerns. SIGNATURE: YADIRA BARRIOS, JORGED, BCPS DATE/TIME: 12/01/2020 2:47 AM Sally Hannon [employer], [employer] 12/01/2020 4:50 AM Addendum ADMISSION EXAMINATION SERVICE DATE: 12/01/2020 SERVICE TIME: 033 PCP: Skinny London NP PRIMARY ATTENDING: Dr. Bebeto Crum Subjective CHIEF COMPLAINT: Pain (Shoulder Pain) (for about 2 weeks), Shortness of Breath, and Back Pain (upper back pain) HPI: Patient is a 70 year old female with a past medical history significant for hypertension, cervical cancer s/p hysterectomy, Gerd, hyperlipidemia, and rhabdomyolysis in 2017 with statin use. Pt was seen at her PCP's office on 11/30 for c/o sob with mild exertion (which is not normal for her) and muscle pains. She was assessed and advised to be seen in the ER. Pt notes having exertional sob for the past 2 weeks. She also notes bilateral shoulder soreness. With her h/o rhabdo in the past she stopped her statin. She also c/o frequent charley horses to her left calf, and Intermittent pain under her left rib cage. Pt denies fever/chills, cp, nausea/vomiting, diarrhea, blood in stool. Pt mentioned concern regarding Gerd and possibility of ulcer d/t large amounts of stress she is currently under. She notes last colonoscopy in 2013. Her hgb was found to be 6.1, hct 22.9. OB stool negative. She was ordered 2 units PRBCs. D-dimer 1,690- d/t pt's renal function she was unable to have a CTA PE study. VQ scan has been ordered for morning and pt was given a dose of lovenox. Ferritin 3.7, iron 20, TIBC >520, transferrin <4. BUN 30, creatinine 1.84. NA 134. HS trops 14, 16, 15. Lipase and CK wnl. History provided by: patient and EMR FUNCTIONAL STATUS: Independent PAST MEDICAL HISTORY Diagnosis Date - Cervical cancer (HCC) 2013 - Essential hypertension - GERD (gastroesophageal reflux disease) - Other hyperlipidemia - Rhabdomyolysis 2016 PAST SURGICAL HISTORY Procedure Laterality Date - TOTAL ABDOM HYSTERECTOMY 2013 FAMILY HISTORY Problem Relation Age of Onset - Cancer Father - Hypertension Mother - Cataract Mother - Glaucoma Mother - Macular Degen Mother Social History Tobacco Use - Smoking status: Former Smoker Packs/day: 3.00 Years: 14.00 Pack years: 42.00 Types: Cigarettes - Smokeless tobacco: Never Used - Tobacco comment: quit 1986 Substance Use Topics - Alcohol use: Yes Comment: social - Drug use: Never I have confirmed and edited as necessary, the PFSH obtained by others. ALLERGIES Allergen Reactions - Penicillins Unknown - Bizgwpd-Zrl-Fkm Red* Unknown - Sulfa (Sulfonamide * Unknown Prior to Admission Medications Prescriptions Last Dose Informant Patient Reported? Taking? aspirin, enteric coated (ASPIRIN, ENTERIC COATED) 81 mg EC tablet 12/01/2020 at 0700 Yes Yes Sig: Take 81 mg by mouth once daily. atorvastatin calcium (ATORVASTATIN ORAL) Unknown at havent taken in ten days Yes No Sig: Take by mouth. ezetimibe (ZETIA ORAL) 12/01/2020 at 0700 Yes Yes Sig: Take by mouth. iron,carb/vit C/vit B12/folic (IRON 100 PLUS ORAL) Unknown at doesnt take Yes No Sig: Take by mouth. levothyroxine sodium (LEVOTHYROXINE ORAL) 12/01/2020 at 0700 Yes Yes Sig: Take by mouth. lisinopril-hydrochlorot hiazide (PRINZIDE,ZESTORETIC) 20-12.5 mg per tablet 12/01/2020 at 0700 Yes Yes Sig: Take 1 tablet by mouth once daily. niacin ER (NIASPAN) 500 mg tablet 11/30/2020 at 2300 Yes Yes Sig: Take 500 mg by mouth twice daily with meals. Facility-Administered Medications: None REVIEW OF SYSTEMS: Review of Systems Constitutional: Positive for fatigue. Negative for chills and fever. HENT: Negative for congestion and trouble swallowing. Eyes: Negative. Respiratory: Positive for shortness of breath and dyspnea . Negative for cough and chest tightness. Cardiovascular: Positive for leg swelling. Negative for chest pain. Gastrointestinal: Negative for abdominal pain, blood in stool, constipation, diarrhea, nausea and vomiting. Endocrine: Negative. Genitourinary: Negative for difficulty urinating, dysuria and frequency. Musculoskeletal: Positive for myalgias. Skin: Positive for pallor. Allergic/Immunologic: Negative for environmental allergies and food allergies. Neurological: Positive for weakness. Negative for dizziness, tremors, syncope, light-headedness, numbness and headaches. Psychiatric/Behavioral: Negative for agitation, confusion and hallucinations. The patient is not nervous/anxious. Objective PHYSICAL EXAM: Physical Exam Constitutional: She is oriented to person, place, and time. She appears well-nourished. She is cooperative. No distress. HENT: Head: Normocephalic. Eyes: Pupils are equal, round, and reactive to light. EOM are normal. Cardiovascular: Normal rate, regular rhythm, intact distal pulses and normal pulses. No murmur heard. Pulmonary/Chest: Effort normal. No tachypnea. She has no decreased breath sounds. She has no wheezes. She has no rhonchi. She has no rales. Abdominal: Soft. Normal appearance and bowel sounds are normal. There is no abdominal tenderness. Musculoskeletal: General: Normal range of motion. Cervical back: Full passive range of motion without pain and normal range of motion. Right lower leg: No tenderness. Edema present. Left lower leg: No tenderness. Edema present. Neurological: She is alert and oriented to person, place, and time. She displays no tremor. No sensory deficit. She exhibits normal muscle tone. She displays no seizure activity. Skin: Skin is warm and dry. She is not diaphoretic. There is pallor. Psychiatric: She has a normal mood and affect. Her speech is normal and behavior is normal. Cognition and memory are normal. BP 133/58 Pulse 92 Temp 36.9 ?C (98.4 ?F) (Oral) Resp 20 Ht 152.4 cm (5') Wt 89.3 kg (196 lb 13.9 oz) SpO2 97% BMI 38.45 kg/m? Body mass index is 38.45 kg/m?. DATA: Diagnostic tests: Most recent labs and imaging results. Imaging: XR CHEST 1V FRONTAL PORT Result Date: 11/30/2020 * * *Final Report* * * DATE OF EXAM: Nov 30 2020 9:35PM MDX [id number] - XR CHEST 1V FRONTAL PORT / PROCEDURE REASON: Chest pain * * * * Physician Interpretation * * * * EXAMINATION: CHEST RADIOGRAPH (PORTABLE SINGLE VIEW AP) Exam Date/Time: 11/30/2020 9:35 PM CLINICAL HISTORY: Chest pain MQ: XCPR_5 Comparison: None. RESULT: Lines, tubes, and devices: _ Lungs and pleura: No focal infiltrates or pleural effusions. _ No pneumothorax. Cardiomediastinal silhouette: Stable cardiomediastinal silhouette. Tortuous aorta. Large hiatal hernia. Bones and soft tissues: The bony thorax is intact. _ IMPRESSION: No acute radiographic abnormality. Hiatal hernia. Overlock Waistline Joiner: PSCB Transcribe Date/Time: Nov 30 2020 9:42P Dictated by : CANDI RAMIRES MD This examination was interpreted and the report reviewed and electronically signed by: CANDI RAMIRES MD on Nov 30 2020 9:43PM EST CT ABD/PEL WO IVCON Result Date: 11/30/2020 * * *Final Report* * * DATE OF EXAM: Nov 30 2020 10:22PM [facility] [place] 0531 - CT ABD/PEL WO IVCON / PROCEDURE REASON: Nausea, vomiting * * * * Physician Interpretation * * * * EXAMINATION: CT CHEST, ABDOMEN AND PELVIS WITHOUT IV CONTRAST CLINICAL HISTORY: Nausea, vomiting, Abdominal pain, acute, nonlocalized (accession [id number]), Shortness of breath, Chest pain or SOB, pleurisy or effusion suspected (accession [id number]) Concern for malignancy GENERALIZED PAIN HX CERV CA TECHNIQUE: Non-IV contrast imaging of the chest, abdomen and pelvis was performed using standard technique. Unenhanced imaging is limited for the evaluation of some intra-abdominal and pelvic pathology. MQ: CTAPWO_3 Contrast: IV: None : ml of CT Radiation dose: Integrated Dose-length product (DLP) for this visit = 825 mGy*cm. CT Dose Reduction Employed: mAs-kVp adjusted based on patient size-age COMPARISON: None. RESULT: CT chest: Limitations: None. Lines, tubes, and devices: None. Lung parenchyma and airways: There is left basilar atelectasis. There is focal airspace opacity in the lingula measuring 8 mm (5:100). Pleural space: No pleural effusion. No pleural thickening. Lower neck, lymph nodes, and mediastinum: The imaged thyroid gland is normal. No lymphadenopathy in the supraclavicular, axillary, mediastinal, or hilar regions. Heart, pericardium, and thoracic vessels: The thoracic aorta and main pulmonary artery are normal in caliber. The cardiac chambers are normal in size. No coronary artery atherosclerotic calcifications are noted, although the study is not optimized for coronary assessment. No pericardial effusion or thickening. Abdomen / Pelvis: Liver: There are 2 cysts in the liver measuring up to 2.9 cm in the inferior right hepatic lobe. Biliary: The gallbladder is unremarkable. Spleen: No splenomegaly. Pancreas: Unremarkable. Adrenals: No mass. Kidneys: No calculus, hydronephrosis or finding to suggest a cyst or mass in the unenhanced kidney. GI Tract: No bowel dilation. There is a moderate-sized hiatal hernia. The appendix is unremarkable. Lymph Nodes: No lymphadenopathy. Mesentery/peritoneum: No ascites. Retroperitoneum: No mass. Vasculature: Normal caliber of the abdominal aorta. Pelvis: No mass or ascites. Hysterectomy. Bones/Soft Tissues: No acute abnormality. Oyster Sorter (topogram) images: No additional findings. IMPRESSION: Focal area of airspace opacity in the lingula measuring 8 mm. This appears somewhat nodular. The recommendations as below. Moderate-sized hiatal hernia Incidental Finding: Follow-up Acuity: Incidental Finding: Solid 6-8 mm (solitary nodule) Routing Code: RI_1 Recommendation: CT Chest WO IVCON Time Frame: 6-12 months Comments: If stable on follow-up imaging, a repeat chest CT exam in 12 months (18-24 months from the initial exam) is recommended Overlock Waistline Joiner: DUTCH Transcribe Date/Time: Nov 30 2020 10:56P Dictated by : FRANCESCO MANRIQUEZ MD This examination was interpreted and the report reviewed and electronically signed by: FRANCESCO MANRIQUEZ MD on Nov 30 2020 11:12PM EST CT CHEST WO IVCON Result Date: 11/30/2020 * * *Final Report* * * DATE OF EXAM: Nov 30 2020 10:22PM [facility] [place] 0541 - CT CHEST WO IVCON / PROCEDURE REASON: Shortness of breath * * * * Physician Interpretation * * * * EXAMINATION: CT CHEST, ABDOMEN AND PELVIS WITHOUT IV CONTRAST CLINICAL HISTORY: Nausea, vomiting, Abdominal pain, acute, nonlocalized (accession [id number]), Shortness of breath, Chest pain or SOB, pleurisy or effusion suspected (accession [id number]) Concern for malignancy GENERALIZED PAIN HX CERV CA TECHNIQUE: Non-IV contrast imaging of the chest, abdomen and pelvis was performed using standard technique. Unenhanced imaging is limited for the evaluation of some intra-abdominal and pelvic pathology. MQ: CTAPWO_3 Contrast: IV: None : ml of CT Radiation dose: Integrated Dose-length product (DLP) for this visit = 825 mGy*cm. CT Dose Reduction Employed: mAs-kVp adjusted based on patient size-age COMPARISON: None. RESULT: CT chest: Limitations: None. Lines, tubes, and devices: None. Lung parenchyma and airways: There is left basilar atelectasis. There is focal airspace opacity in the lingula measuring 8 mm (5:100). Pleural space: No pleural effusion. No pleural thickening. Lower neck, lymph nodes, and mediastinum: The imaged thyroid gland is normal. No lymphadenopathy in the supraclavicular, axillary, mediastinal, or hilar regions. Heart, pericardium, and thoracic vessels: The thoracic aorta and main pulmonary artery are normal in caliber. The cardiac chambers are normal in size. No coronary artery atherosclerotic calcifications are noted, although the study is not optimized for coronary assessment. No pericardial effusion or thickening. Abdomen / Pelvis: Liver: There are 2 cysts in the liver measuring up to 2.9 cm in the inferior right hepatic lobe. Biliary: The gallbladder is unremarkable. Spleen: No splenomegaly. Pancreas: Unremarkable. Adrenals: No mass. Kidneys: No calculus, hydronephrosis or finding to suggest a cyst or mass in the unenhanced kidney. GI Tract: No bowel dilation. There is a moderate-sized hiatal hernia. The appendix is unremarkable. Lymph Nodes: No lymphadenopathy. Mesentery/peritoneum: No ascites. Retroperitoneum: No mass. Vasculature: Normal caliber of the abdominal aorta. Pelvis: No mass or ascites. Hysterectomy. Bones/Soft Tissues: No acute abnormality. Oyster Sorter (topogram) images: No additional findings. IMPRESSION: Focal area of airspace opacity in the lingula measuring 8 mm. This appears somewhat nodular. The recommendations as below. Moderate-sized hiatal hernia Incidental Finding: Follow-up Acuity: Incidental Finding: Solid 6-8 mm (solitary nodule) Routing Code: RI_1 Recommendation: CT Chest WO IVCON Time Frame: 6-12 months Comments: If stable on follow-up imaging, a repeat chest CT exam in 12 months (18-24 months from the initial exam) is recommended Overlock Waistline Joiner: DUTCH Transcribe Date/Time: Nov 30 2020 10:56P Dictated by : FRANCESCO MANRIQUEZ MD This examination was interpreted and the report reviewed and electronically signed by: FRANCESCO MANRIQUEZ MD on Nov 30 2020 11:12PM EST Past 72 Hour Labs: Recent Labs 11/30/202050 CK 131 WBC 6.50 RBC 3.09* HB 6.1* HCT 22.9* MCV 74.1* MCH 19.7* MCHC 26.6* RDWCV 17.1* PLT 368 MPV 9.4 NEUTP 75.4 LYMPHP 12.3 MONOP 9.7 EODINP 1.5 BASOP 1.1 ABSNEUT 4.88 ABSMONO 0.63 ABSEOSIN 0.10 ABSBASO 0.07 GLUC 106* BUN 30* CREAT 1.84* NA 134* K 3.7 CHLOR 100 CO2 22 TPROT 7.2 ALB 4.2 CA 9.0 ALKPHOS 57 TBILI 0.2 AST 25 ALT 13 Medication and Non-Pharmacologic VTE Prophylaxis/Anticoagula nts Anticoagulant AND Antiplatelet Medications (From admission, onward) Start Dose Route Frequency Ordered Stop 12/02/20 0900 enoxaparin 30 mg injection (LOVENOX) (Medical Risk Categories) 30 mg SUBCUTANEOUS DAILY 12/01/20 0234 -- 12/01/20 0900 aspirin, enteric coated 81 mg tab(s) 81 mg ORAL DAILY 12/01/20 0234 -- 12/01/20 0245 pneumatic compression stockings (ar,nm) 12/01/20 0245 activity - mobilize patient ([place], [place]) VTE Prophylaxis: VTE prophylaxis appropriate ASSESSMENT/PLAN: Principal Problem: Symptomatic anemia POA: Unknown Active Problems: Acute renal insufficiency POA: Yes Myalgias POA: Yes Exertional dyspnea POA: Yes Elevated d-dimer POA: Yes Plan: -tele -2 units PRBCs ordered -repeat cbc, cmp in a.m. -CK wnl- no concern for rhabdo -defer to attending for consults -awaiting VQ scan in a.m. -received weight based dose of lovenox in ER, ordered lovenox 30 mg daily -GI consult Resolved Problems: * No resolved hospital problems. * SIGNATURE: Sally Hannon APRN.RENÉE PATIENT NAME: Shine Min DATE: December 01, 2020 TIME: 4:16 AM PAGER/CONTACT #: [phone] Previous Version Celia Schaefer RN, RN 12/01/2020 6:43 AM Signed Nursing Progress Note Patient Name: Shine Min Patient Location: [place] [id number] Daily Note: 0212: Admitted patient to unit. Completed admission and assessment, patient c/o of mild back pain from symptomatic anemia. VENEER MARKER at bedside. Patient is showing mild signs of anxiety of being in the hospital, she is worrying about her and is tearful. Son is very involved in both of their life. All safety measures maintained. 0316: Started unit of PRBC, obtained vitals at 0331. Patient is experience no adverse reactions. All safety measures maintained. No needs at this time. 0529: Gave morning medication, transfusion of PRBC almost complete. All safety measures maintained, no needs at this time. 0549: Infusion of PRBC completed, vitals obtained, patient has no s/s of transfusion reaction. 0601: Started second unit of PRBC. Patient states her symptoms of anemia are starting to subside. 0616: Vitals obtained. Patient has no s/s of transfusion reactions. Educated the patient on how to order breakfast. No needs at this time, all safety measures maintained. This note was completed by: CAMERON Harrell MD 12/01/2020 10:00 AM Signed [place] [id number] PH: [phone] HISTORY AND PHYSICAL Patient Name: Shine Min :1950 Age:[age] year old female ADMISSION DATE: 11/30/2020 Provider: oMntez Crum MD SERVICE:InternalMedicin e/Pulmonary/Sleep Medicine Date AND time of evaluation/service: December 01, 2020 TIME: 9:48 AM PRIMARY CARE PHYSICIAN: Skinny London NP Subjective CHIEF COMPLAINT: Back pain, right shoulder pain, shortness of breath and heartburn HPI: Patient. Normal patient of RENÉE London. She has history of cervical cancer and [...] about her worsening pain. She also reporting some shortness of breath. She also reports having some heartburn for last 2 weeks. She denies having any black stool. She did report mild twitching in her abdomen but denies any nausea or vomiting. She was evaluated in emergency room. She had a CT abdomen and pelvis done which only showed 8 mm nodule in the lingular segment of the left upper lobe which needed further follow-up on outpatient basis. Her lab test results reviewed. She had a CBC done that showed hemoglobin of 6.1 g. We do not have any previous lab test results. I have called her Nurse practitioner AT [phone] and left a message for blood test reports. GI consultation also requested. Patient received 2 units of packed red blood cell transfusion. Repeat lab work has been ordered. She also had elevated serum creatinine 1.8. He did undergo a CT of the chest with contrast last night but I was told that the contrast did not have proper timing to get good results remarkably thromboembolism. Due to concern about her chest pain, she did receive 1 dose of Lovenox. However, with his low hemoglobin, her anticoagulation and aspirin are being discontinued. Currently, she is feeling awake alert and comfortable and does not report any acute discomfort or distress. Patient also placed on IV fluids due to her elevated serum creatinine and having CT of the chest with contrast. Follow-up on outpatient basis. REVIEW OF SYSTEMS: General: Denies any significant change in weight. No fever, chills or malaise Eyes: No visual difficulty or discharge EENT: Denies any trouble swallowing or choking on food. Denies sore throat Pulmonary: Reports some increased shortness of breath on walking and bending for last 2 weeks. Cardiac: Denies chest pain, palpitation. Has chronic lymphedema in the right leg. GI: Heartburn for last 2 weeks : Denies dysuria, Frequency, incontinence to have an element okay to discharge home. Cardiovascular not maternal- Musculoskeletal: Right shoulder and neck pain skin: Denies any rash or itching Neuro: Denies headache, Focal weakness, numbness, seizure disorder psych: She feels under stress PAST MEDICAL HISTORY Diagnosis Date - Cervical cancer (HCC) 2013 - Cervical cancer (HCC): S/P HYSTERECTOMY - Essential hypertension - GERD (gastroesophageal reflux disease) - Other hyperlipidemia - Rhabdomyolysis 2016 PAST SURGICAL HISTORY Procedure Laterality Date - TOTAL ABDOM HYSTERECTOMY 2013 FAMILY HISTORY Problem Relation Age of Onset - Cancer Father - Hypertension Mother - Cataract Mother - Glaucoma Mother - Macular Degen Mother Social History Tobacco Use - Smoking status: Former Smoker Packs/day: 3.00 Years: 14.00 Pack years: 42.00 Types: Cigarettes - Smokeless tobacco: Never Used - Tobacco comment: quit 1986 Substance Use Topics - Alcohol use: Yes Comment: social - Drug use: Never - levothyroxine sodium (LEVOTHYROXINE ORAL), Take by mouth., Disp: , Rfl: , 12/01/2020 at 0700 - lisinopril-hydrochlorot hiazide (PRINZIDE,ZESTORETIC) 20-12.5 mg per tablet, Take 1 tablet by mouth once daily., Disp: , Rfl: , 12/01/2020 at 0700 - ezetimibe (ZETIA ORAL), Take by mouth., Disp: , Rfl: , 12/01/2020 at 0700 - aspirin, enteric coated (ASPIRIN, ENTERIC COATED) 81 mg EC tablet, Take 81 mg by mouth once daily., Disp: , Rfl: , 12/01/2020 at 0700 - niacin ER (NIASPAN) 500 mg tablet, Take 500 mg by mouth twice daily with meals., Disp: , Rfl: , 11/30/2020 at 2300 - atorvastatin calcium (ATORVASTATIN ORAL), Take by mouth., Disp: , Rfl: , Unknown at havent taken in ten days - iron,carb/vit C/vit B12/folic (IRON 100 PLUS ORAL), Take by mouth., Disp: , Rfl: , Unknown at doesnt take ALLERGIES Allergen Reactions - Penicillins Unknown - [place]-Vtq-Yao Red* Unknown - Sulfa (Sulfonamide * Unknown Objective BP 126/66 Pulse 77 Temp 36.8 ?C (98.2 ?F) Resp 16 Ht 152.4 cm (5') Wt 89.3 kg (196 lb 13.9 oz) SpO2 95% BMI 38.45 kg/m? PHYSICAL EXAM: General: Awake alert, answering questions appropriately. HEENT: Unremarkable. Pupils: Reactive pharynx normal. Mallampati: 2 Neck: soft. JVD not raised, Thyroid:not enlarged chest: symmetrical: Nontender lungs: Chest Symmetrical. Respiration: non labored. Lungs clear to auscultation AND palpitation Cardiac: Regular rate and rhythm. Apical impulse is normal. No murmur heard. No pitting edema. Abdomen soft, nontender, no guarding or rigidity noted. Bowel sounds active. No organomegaly noted. Musculoskeletal: No obvious joint deformity noted Extremities: Upper extremities : normal, Lower extremities: Chronic lymphedema right leg Skin: No rash noted. Palpation: normal tone Lymphatic: No cervical or supraclavicular lymphadenopathy noted. Neurological: Face symmetrical. Moving all 4 extremities in reasonable fashion: Speech normal Patient Vitals for the past 24 hrs: BP Temp Temp src Pulse Resp SpO2 Height Weight 12/01/20 0814 126/66 36.8 ?C (98.2 ?F) ? 77 ? 95 % ? ? 12/01/20 0728 111/55 36.7 ?C (98.1 ?F) Oral 79 16 96 % ? ? 12/01/20 0616 111/61 37 ?C (98.6 ?F) Oral 80 18 ? ? ? 12/01/20 0549 110/60 37.1 ?C (98.7 ?F) Oral 85 16 ? ? ? 12/01/20 0331 133/58 36.9 ?C (98.4 ?F) Oral 92 20 ? ? ? 12/01/20 0312 118/66 37 ?C (98.6 ?F) Oral 86 16 97 % ? ? 12/01/20 0252 ? 37.1 ?C (98.8 ?F) Oral ? 12/01/20 0248 131/69 ? ? 94 20 95 % ? ? 12/01/20 0225 ? 152.4 cm (5') 89.3 kg (196 lb 13.9 oz) 01/16/21 0157 111/79 37.1 ?C (98.8 ?F) Oral 98 18 98 % ? ? 12/01/20 0130 ? 96 % ? ? 12/01/20 0100 120/62 ? ? 84 19 96 % ? ? 12/01/20 0000 128/69 ? ? 84 22 97 % ? ? 11/30/20 2300 137/67 ? ? (!) 92 19 97 % ? ? 11/30/20 2105 137/70 ? ? 90 18 98 % ? ? 11/30/201948 ? 36.9 ?C (98.5 ?F) Oral ? 11/30/201946 173/75 ? ? (!) 107 20 99 % ? 89.8 kg (198 lb) DATA: Diagnostic tests reviewed for today's visit: CT of the chest: Contrast timing was not right and pulmonary embolism cannot be completely ruled out. 80 mm of noncalcified pulmonary nodule noted in the lingular segment of the left upper lobe. EKG: Normal sinus rhythm ABG: No results for input(s): PH, PCO2, PO2, HCO3 in the last 168 hours. CBC: Recent Labs 11/30/202050 WBC 6.50 HB 6.1* HCT 22.9* PLT 368 COAG: No results for input(s): APTT, INR in the last 168 hours. BMP: Recent Labs 11/30/202050 GLUC 106* NA 134* K 3.7 CHLOR 100 CO2 22 ANION 12 BUN 30* CREAT 1.84* CHEM: Recent Labs 11/30/202050 ALB 4.2 TPROT 7.2 CA 9.0 HEPATIC: Recent Labs 11/30/202050 ALKPHOS 57 ALT 13 AST 25 TBILI 0.2 LIPASE 59 URINALYSIS:No results for input(s): SPGR, UGLUC, UBILI, UKET, UHB, UPROT, UROBIL, UWBC, SSA in the last 168 hours. Invalid input(s): NITR CARDIAC: No results for input(s): CKTEST, CKMB, CKMBP, TROPT, PBNP in the last 168 hours. Assessment/Plan 1. Symptomatic severe anemia with hemoglobin of 6.1 g. He did not have any previous lab test reports on her for comparison purposes. Patient received units of packed red blood cell transfusion. GI has been consulted. Patient was assigned to observation bed which will be changed to full admit. I have also called her nurse practitioner to fax me her previous lab test reports. 2. Abnormal serum creatinine: Not have access to previous lab test reports at this time.. It could be due to her GI bleed. Patient started on IV fluids. 3. Exertional dyspnea: Probably due to her anemia 4. Right shoulder pain and back pain: Etiology remains unclear at this time. While laying in the bed, she appears fairly comfortable. 5. Chest pain: Had elevated D-dimer. However, with her severe anemia. Will hold off all anticoagulations on her at this time. Will use SCD. SIGNATURE: Montez Crum MD PATIENT NAME: Shine Min DATE: December 01, 2020 TIME: 9:48 AM Sebastian aMtos MD 12/01/2020 1:55 PM Signed GASTROENTEROLOGY CONSULT NOTE PATIENT NAME: Shine Min SERVICE DATE: December 01, 2020 SERVICE TIME: 10:24 AM PRIMARY CARE PHYSICIAN: Skinny London NP ATTENDING PHYSICIAN: Montez Crum MD REASON FOR ADMISSION / CONSULTATION: Symptomatic anemia HPI: This is a 70 year old female with a past medical history significant for cervical cancer in 2013, anemia and rhabdomyolysis (from previous statin use) who presents to [facility] due to complaints of fatigue, shortness of breath and right shoulder pain. Patient went to see her PCP yesterday due worsening fatigue and was directed to present to the ER for additional evaluation. Patient describes a 1-2 week history of worsening shortness of breath with exertion and fatigue. In the ED the patient was noted to have BUN 20, creatinine 1.84, hemoglobin of 6.1 and hematocrit 22.9. Also noted to have CT findings of moderate sized hiatal hernia. She was admitted to [address] [place] [address] for additional work up. Patient is without complaints of abdominal pain. Describes increased amount of gas bubbles / twisting which is always brief in duration and self resolving. No nausea or vomiting. Once or twice per month will report asour taste in her mouth QAM when she awakes. Nothing that is treated with medication. Describes an intermittent globus sensation as well as dysphagia to medications mostly. No odynophagia. Bowel pattern chronically fluctuates and is without BRB or melena. A stool for OB has been collected and found to be negative. Takes Aspirin 81 mg daily and also Ibuprofen 2 tablets most nights prior to sleep and 2 additional tablets QAM for generalized aches and pains. ? ALLERGIES: ALLERGIES Allergen Reactions - Penicillins Unknown - [place]-Rcs-Taw Red* Unknown - Sulfa (Sulfonamide * Unknown PAST MEDICAL HISTORY: PAST MEDICAL HISTORY Diagnosis Date - Cervical cancer (HCC) 2013 - Cervical cancer (HCC): S/P HYSTERECTOMY - Essential hypertension - GERD (gastroesophageal reflux disease) - Other hyperlipidemia - Rhabdomyolysis 2016 PAST SURGICAL HISTORY: PAST SURGICAL HISTORY Procedure Laterality Date - TOTAL ABDOM HYSTERECTOMY 2013 MEDICATIONS: Prior to Admission Medications: - levothyroxine sodium (LEVOTHYROXINE ORAL), Take by mouth., Disp: , Rfl: , 12/01/2020 at 0700 - lisinopril-hydrochlorot hiazide (PRINZIDE,ZESTORETIC) 20-12.5 mg per tablet, Take 1 tablet by mouth once daily., Disp: , Rfl: , 12/01/2020 at 0700 - ezetimibe (ZETIA ORAL), Take by mouth., Disp: , Rfl: , 12/01/2020 at 0700 - aspirin, enteric coated (ASPIRIN, ENTERIC COATED) 81 mg EC tablet, Take 81 mg by mouth once daily., Disp: , Rfl: , 12/01/2020 at 0700 - niacin ER (NIASPAN) 500 mg tablet, Take 500 mg by mouth twice daily with meals., Disp: , Rfl: , 11/30/2020 at 2300 - atorvastatin calcium (ATORVASTATIN ORAL), Take by mouth., Disp: , Rfl: , Unknown at havent taken in ten days - iron,carb/vit C/vit B12/folic (IRON 100 PLUS ORAL), Take by mouth., Disp: , Rfl: , Unknown at doesnt take Current Hospital Medications: Current Facility-Administered Medications Medication Dose Route Frequency - niacin ER 500 mg tab(s) (NIASPAN) 500 mg ORAL BID w MEALS - levothyroxine 75 mcg tab(s) (SYNTHROID) 75 mcg ORAL DAILY (6 AM) - ezetimibe 10 mg tab(s) (ZETIA) 10 mg ORAL DAILY - sodium chloride 0.9 % (flush) 3-5 mL (BD POSIFLUSH) 3-5 mL INTRAVENOUS q 12 H - lisinopril 20 mg tab(s) (ZESTRIL, PRINIVIL) 20 mg ORAL DAILY - NaCl 0.9% iv infusion 100 mL/hr INTRAVENOUS CONTINUOUS FAMILY HISTORY: Negative for any digestive-related disorders or malignancies. SOCIAL HISTORY: Marital status: Children: Two Alcohol use: 1-2 drinks per month Tobacco use: Quit in 1986 REVIEW OF SYSTEMS: CONSTITUTIONAL: No fevers, chills or unintended weight loss CARDIOVASCULAR: (+) No chest pain. No palpitations or lower extremity edema PULM: (+) dyspnea GI: Per HPI : No dysuria or gross hematuria NEURO: No dizziness or lightheadedness MUSC/SKEL: No new joint pain, swelling, or erythema PSYCH: No concerns regarding depression, anxiety or panic INTEGUMENTARY: No new skin changes (rash, new or changing mole, new growth) PHYSICAL EXAM: Patient Vitals for the past 24 hrs: BP Temp Temp src Pulse Resp SpO2 Height Weight 12/01/20 0814 126/66 36.8 ?C (98.2 ?F) ? 77 ? 95 % ? ? 12/01/20 0728 111/55 36.7 ?C (98.1 ?F) Oral 79 16 96 % ? ? 12/01/20 0616 111/61 37 ?C (98.6 ?F) Oral 80 18 ? ? ? 12/01/20 0549 110/60 37.1 ?C (98.7 ?F) Oral 85 16 ? ? ? 12/01/20 0331 133/58 36.9 ?C (98.4 ?F) Oral 92 20 ? ? ? 12/01/20 0312 118/66 37 ?C (98.6 ?F) Oral 86 16 97 % ? ? 12/01/20 0252 ? 37.1 ?C (98.8 ?F) Oral ? 12/01/20 0248 131/69 ? ? 94 20 95 % ? ? 12/01/20 0225 ? 152.4 cm (5') 89.3 kg (196 lb 13.9 oz) 12/01/20 0157 111/79 37.1 ?C (98.8 ?F) Oral 98 18 98 % ? ? 12/01/20 0130 ? 96 % ? ? 12/01/20 0100 120/62 ? ? 84 19 96 % ? ? 12/01/20 0000 128/69 ? ? 84 22 97 % ? ? 11/30/20 2300 137/67 ? ? (!) 92 19 97 % ? ? 11/30/205 137/70 ? ? 90 18 98 % ? ? 11/30/201948 ? 36.9 ?C (98.5 ?F) Oral ? 11/30/201946 173/75 ? ? (!) 107 20 99 % ? 89.8 kg (198 lb) Body mass index is 38.45 kg/m?. GENERAL: Alert AND oriented x 3. Cooperative. NAD EYES: No scleral icterus SKIN: Pale in color. No jaundice LUNGS: Diminished to auscultation posteriorly CARDIAC: RRR ABDOMEN: BS x 4 - hypoactive. Abdomen obese but soft, non tender, non distended, no palpable masses or organomegaly. No guarding or rebound tenderness elicited EXTREMITIES: No upper or lower extremity edema LABS: Diagnostic tests reviewed for today's visit: CBC, Coags, BMP, Mg, Phos Recent Labs 11/30/202050 WBC 6.50 HB 6.1* HCT 22.9* PLT 368 NA 134* K 3.7 CHLOR 100 CO2 22 BUN 30* CREAT 1.84* GLUC 106* CA 9.0 Liver Function, Amylase, AND Lipase Recent Labs 11/30/202050 TPROT 7.2 ALB 4.2 ALT 13 AST 25 ALKPHOS 57 TBILI 0.2 LIPASE 59 MISC LABS Component Latest Ref Rng AND Units 11/30/2020 11/30/2020 12/01/2020 8:51 PM 9:35 PM Iron 41 - 186 ug/dL 20 (L) TIBC 232 - 386 ug/dL >520 (H) Transferrin Saturation 15 - 57 % <4 (L) Reticulocyte Count, Manual 0.4 - 2.0 % 1.8 Abs Retic 0.0180 - 0.1000 M/uL 0.057 FRANCINE High Sensitivity <12 ng/L 14 (H) 16 (H) 15 (H) CK 42 - 196 U/L 131 Lipase 16 - 61 U/L 59 d Dimer <500 ng/mL FEU 1,690 (H) Ferritin 14.7 - 205.1 ng/mL 3.7 (L) Folate >4.7 ng/mL 16.8 Vitamin B12 232 - 1,245 pg/mL 333 11/30/2020 Stool OB (-) 11/30/2020 COVID-19 (-) RADIOLOGY 11/30/2020 CT Chest/A/P RESULT: CT chest: Limitations: ?None. Lines, tubes, and devices: ?None. Lung parenchyma and airways: There is left basilar atelectasis. ?There is focal airspace opacity in the lingula measuring 8 mm (5:100). Pleural space: ?No pleural effusion. ?No pleural thickening. Lower neck, lymph nodes, and mediastinum: ?The imaged thyroid gland is ormal. No lymphadenopathy in the supraclavicular, axillary, mediastinal, or hilar regions. Heart, pericardium, and thoracic vessels: ?The thoracic aorta and main pulmonary artery are normal in caliber. The cardiac chambers are normal in size. No coronary artery atherosclerotic calcifications are noted, although the study is not optimized for coronary assessment. No pericardial effusion or thickening. Abdomen / Pelvis: Liver: There are 2 cysts in the liver measuring up to 2.9 cm in the inferior right hepatic lobe. Biliary: The gallbladder is unremarkable. Spleen: No splenomegaly. Pancreas: Unremarkable. Adrenals: No mass. Kidneys: No calculus, hydronephrosis or finding to suggest a cyst or mass in the unenhanced kidney. GI Tract: No bowel dilation. ?There is a moderate-sized hiatal hernia. The appendix is unremarkable. Lymph Nodes: No lymphadenopathy. Mesentery/peritoneum: No ascites. Retroperitoneum: No mass. Vasculature: Normal caliber of the abdominal aorta. Pelvis: No mass or ascites. ?Hysterectomy. Bones/Soft Tissues: No acute abnormality. Oyster Sorter (topogram) images: No additional findings. IMPRESSION: Focal area of airspace opacity in the lingula measuring 8 mm. ?This appears somewhat nodular. ?The recommendations as below. Moderate-sized hiatal hernia Incidental Finding: ?Follow-up Acuity: Incidental Finding: Solid 6-8 mm (solitary nodule) Routing Code: RI_1 Recommendation: CT Chest WO IVCON Time Frame: 6-12 months Comments: If stable on follow-up imaging, a repeat chest CT exam in 12 months (18-24 months from the initial exam) ?is recommended 12/01/2020 VQ Scan IMPRESSION: LOW PROBABILITY OF PULMONARY EMBOLISM. MOST RECENT EGD Has never undergone endoscopic evaluation MOST RECENT COLONOSCOPY Completed in 10/2014 -- per patient was told to return in 10 years. ASSESSMENT 1. Symptomatic Iron deficiency anemia - s/p 2 units PRBC 2. HAILE 3. Intermittent dysphagia and globus sensation 4. CT findings of moderate sized hiatal hernia 5. Hepatic cysts x 2 (up to 2.9 cm) PLAN - Repeat H/H today - Start Pantoprazole 40 mg po daily - Ferrlecit 125 mg IV daily - IVF as per IM - Regular diet - Daily CBC and CMP - Stool log. Check stool for OB - Recommend EGD evaluation -- timing to be based on patients clinical course Total time spent on encounter: 60 minutes. This includes time reviewing diagnostic work up and electronic medical record as well as face to face encounter. Thank you for the opportunity to participate in the care of this patient. I will continue to follow with you. SIGNATURE: Carol Owen APRN.[facility] DATE: December 01, 2020 TIME: 10:24 AM As above, pt with anemia of undefined cause. Parameters appear consistent with iron deficiency anemia. No clinical evidence of active blood loss. Must r/o occult gi blood loss as well as malabsorptive process such as Celiac Sprue. Will plan egd; colonoscopy to follow, timing based on clinical course and result of egd. Previous Version CATARINO Diaz, CT 12/01/2020 10:46 AM Signed RADIOLOGY SERVICE PROGRESS NOTE SERVICE DATE: 12/01/2020 SERVICE TIME: 10:45 AM PATIENT IDENTITY VERIFICATION COMPLETED USING TWO (2) STANDARD IDENTIFIERS: Name and Date of confirmed by patient verbally and Name and Date of confirmed by identification band FALL SCREENING: Has the patient had 2 falls in the last year or 1 fall with injury or currently using an Ambulatory Assistive Device (Walker, Cane, Wheelchair, Crutches, etc.)? Inpatient: Screened on floor PATIENT GENDER DATA: .female : No ALLERGIES: Reviewed and unchanged MEDICATIONS REVIEWED: Not applicable PATIENT RELEVANT IMPLANT DATA REVIEWED: Not Applicable CREATININE: Creatinine Date Value Ref Range Status 11/30/2020 1.84 (H) 0.58 - 0.96 mg/dL Final eGFR-All Other Races Date Value Ref Range Status 11/30/2020 27 . Final Comment: eGFR (Estimated GFR) Units of measure: mL/min/1.73 meters squared eGFR is derived from the reexpressed MDRD Study equation using the following parameters: serum creatinine, age, gender and race. The creatinine assay has been calibrated to be traceable to IDMS. An eGFR <60 mL/min/1.73m2 for >3 months is consistent with chronic kidney disease. Refer to KDOQI guidelines for clinical interpretation. In patients with unstable renal function, e.g. those with acute kidney injury, the eGFR may not accurately reflect actual GFR. eGFR- Date Value Ref Range Status 11/30/2020 33 Final P.O.C.T. RESULTS: N/A December 01, [address] PERFORMED: No IV SITE: Inpatient - refer to LDA documentation POST EXAM PIV STATUS: Inpatient see LDA documentation PROCEDURE TYPE: NM INJECT: LUNG PERF ONLY. 5.4 mCi Tc99m MAA. No other medications given.. ADMINISTRATION TIME: 10:40 PATIENT DISCHARGED TO: Patient taken to IP transport area for return to RNF/ICU/ED. A Diagnostic radioactive procedure has taken place, with no further precautions necessary other than routine body substance precautions. More information regarding radiation safety can be found using this link: [email or web address] [email or web address] 20Diagnostic%20Nuclear% 20Medicine%20Procedures .[email or web address] SIGNATURE: CATARINO Diaz PATIENT NAME: Shine Min DATE: December 01, 2020 TIME: 10:45 AM PAGER/CONTACT #: Sebastian Matos MD 12/02/2020 8:17 AM Signed GASTROENTEROLOGY CONSULT PROGRESS NOTE Patient Name: Shine Min SERVICE DATE: December 02, 2020 SERVICE TIME: 8:15 AM INTERVAL HPI: improved gi status Pt feels better Hg increased to 8.1 No melena or hematochezia Stool heme neg x 2 No gi complaints PHYSICAL EXAM: Patient Vitals for the past 24 hrs: BP Temp Temp src Pulse Resp SpO2 12/02/20 0734 101/56 36.8 ?C (98.2 ?F) Oral 67 16 98 % 12/01/20 1944 121/60 37 ?C (98.6 ?F) Oral 81 18 97 % 12/01/20 1459 143/66 36.9 ?C (98.4 ?F) Oral 93 18 96 % Body mass index is 38.45 kg/m?. GENERAL:NAD EYES: No pallor. No scleral icterus LUNGS: Clear to auscultation. CARDIAC: RRR ABDOMEN: Soft, non distended. Non tender. No palpable mass or hepatosplenomegaly. Bowel sounds normal. No ascites. No guarding or rebound tenderness. DATA: CBC, Coags, BMP, Mg, Phos Recent Labs 12/02/20 0711 12/01/20 1447 12/01/20 0931 11/30/20205011/30/202050 WBC 4.11 4.52 -- -- 6.50 HB 8.0* 8.1* 8.3* < > 6.1* HCT 27.8* 28.5* -- -- 22.9* PLT 263 266 -- -- 368 NA -- -- -- -- 134* K -- -- -- -- 3.7 CHLOR -- -- -- -- 100 CO2 -- -- -- -- 22 BUN -- -- -- -- 30* CREAT -- -- -- -- 1.84* GLUC -- -- -- -- 106* CA -- -- -- -- 9.0 < > = values in this interval not displayed. Liver Function, Amylase, AND Lipase Recent Labs 11/30/202050 TPROT 7.2 ALB 4.2 ALT 13 AST 25 ALKPHOS 57 TBILI 0.2 LIPASE 59 MEDICATIONS: Current Facility-Administered Medications Medication Dose Route Frequency - niacin ER 500 mg tab(s) (NIASPAN) 500 mg ORAL BID w MEALS - levothyroxine 75 mcg tab(s) (SYNTHROID) 75 mcg ORAL DAILY (6 AM) - ezetimibe 10 mg tab(s) (ZETIA) 10 mg ORAL DAILY - sodium chloride 0.9 % (flush) 3-5 mL (BD POSIFLUSH) 3-5 mL INTRAVENOUS q 12 H - lisinopril 20 mg tab(s) (ZESTRIL, PRINIVIL) 20 mg ORAL DAILY - NaCl 0.9% iv infusion 100 mL/hr INTRAVENOUS CONTINUOUS - pantoprazole DR 40 mg tab(s) (PROTONIX) 40 mg ORAL DAILY (6 AM) - ferric gluconate 125 mg in NaCl 0.9% 100 mL (FERRLECIT) 125 mg INTRAVENOUS DAILY AT 6 PM - docusate sodium 100 mg cap(s) (COLACE) 100 mg ORAL BID PRN - acetaminophen 650 mg tab(s) (TYLENOL) 650 mg ORAL q 6 H PRN - acetaminophen 650 mg tab(s) (TYLENOL) 650 mg ORAL q 4 H PRN ASSESSMENT: Significant anemia with no clinical evidence of active bleed. PLAN: Celiac antibodies. EGD tomorrow. Monitor for bleed. 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 Last discharge within 30 days: No Advance Directive: Current Advance Directive: None Electronic Musical Instrument Repairer Attempted to Assist with AD Completion: Yes Action: Education Provided;Other: See Comment(blank packet given to pt to review) Health LiteracyHow often do you need to have someone help you when you read instructions, pamphlets, or other written material from your doctor or pharmacy? : 1 - Never How confident are you filling out medical forms by yourself?: 1 - Extremely If Patient scores > 3 on either question, the following interventions were put into place:: Patient did not score > 3 on either question. Baseline Mental Status Prior to this Illness what was the patient's Baseline Mental Status?: Alert AND Oriented Prior to this illness, has anyone described the patient having any of the following behaviors?: Not Applicable Relationship of the informant to the patient:: Self Functional Status: Independent Does Patient Currently Receive Any Community Services or Home Care?: None Equipment Prior to Admission: None Has the Patient Been in a Senior Care Facility in the Past 30 days?: No SOCIAL: Living Arrangements: Home Lives With: Spouse Financial Resources: Retired Primary Contact: Extended Emergency Contact Information Primary Emergency Contact: Chele Min Address: [address] [place] [id number] [facility] Mobile Relation: Spouse Secondary Emergency Contact: [employer] Mobile Relation: Son Supportive Patient Contact:: Yes Contact Resources: Family Family Name/Phone: Chele [phone] and sons Caregiver AssessmentCaregiver is ready, willing and able to meet the patient's needs as recommended by the inter-professional team:: No Caregiver needed Does the patient have an acute stroke diagnosis, or has the patient had a stroke during this admission?: No Patient's transition needs and plan for meeting these needs: return home self care Patient's perception of need for this admission: back/shoulder pain Medication Adherance I am convinced of the importance of my prescription medication: 0 - Agree Completely I worry that my prescription medication will do more harm than good to me : 0 - Disagree Completely I feel financially burdened by my cek-ys-qvazmj expenses for my prescription medication:: 0 - Disagree Completely Risk Score: 0 Patient is categorized as: Low risk < 2 Are you interested in bedside delivery of your medications? No - [facility] Eduardo Simons Is Patient Psychosocially Complex?: No ASSESSMENT AND PLAN: Medical Needs: Medical Needs: Two or more chronic diseases Psychosocial Needs: Psychosocial Needs: None FREEDOM OF CHOICE EXPLAINED: [place] of Choice Given: No Reason Not Given: Unable to complete with this assessment - revisit POTENTIAL TRANSITION PLANS Home;To Be Determined CMSW met with pt at bedside to complete assessment. Pt reports to be IPTA. No DME or services. Lives at home with . EGD planned for Thursday morning. Pt does not anticipate any needs at dc. Son likely to provide dc transport. CM team will continue to follow. SIGNATURE: RADHA Foote, KNIFE CUTTER PATIENT NAME: Shine Min DATE: December 02, 2020 TIME: 10:32 AM PAGER/CONTACT #: [phone] Montez Crum MD 12/02/2020 1:31 PM Signed .[place], [place] [address] PH: [phone] INPATIENT PROGRESS NOTES Patient Name: Shine Min :1950 Age:[age] year old female ADMISSION DATE: 11/30/2020 Date AND time of evaluation/service: December 02, 2020 TIME: 1:28 PM SERVICE:InternalMedicin e/Pulmonary/Sleep Medicine Assessment AND Plans: 1. Symptomatic severe anemia with hemoglobin of 6.1 g her hemoglobin has improved to 8 g now after she received 2 units of packed red blood cell transfusion. Patient also getting IV Ferrlecit for her iron deficiency. 2. Abnormal serum creatinine: Not have access to previous lab test reports at this time.. It could be due to her GI bleed. Patient started on IV fluids. 3. Exertional dyspnea: Probably due to her anemia 4. Right shoulder pain and back pain: Etiology remains unclear at this time. While laying in the bed, she appears fairly comfortable. INTERVAL HPI: Patient remains awake alert and comfortable. On questioning, she denies having any specific complaints or symptoms. Her hemoglobin has remained stable at 8 g after she has received 2 units of packed red blood cell transfusion. She is being followed with GI consult and the plan for EGD tomorrow. She may be able to go home after her EGD. She is also getting IV Ferrlecit for her iron deficiency. On questioning, she denies any specific complaints or symptoms. She denies any heartburn, black stool or bright red blood in the stool. PERTINENT ROS: Per HPI MEDICATIONS: Current Facility-Administered Medications Medication Dose Route Frequency - niacin ER 500 mg tab(s) (NIASPAN) 500 mg ORAL BID w MEALS - levothyroxine 75 mcg tab(s) (SYNTHROID) 75 mcg ORAL DAILY (6 AM) - ezetimibe 10 mg tab(s) (ZETIA) 10 mg ORAL DAILY - sodium chloride 0.9 % (flush) 3-5 mL (BD POSIFLUSH) 3-5 mL INTRAVENOUS q 12 H - lisinopril 20 mg tab(s) (ZESTRIL, PRINIVIL) 20 mg ORAL DAILY - NaCl 0.9% iv infusion 100 mL/hr INTRAVENOUS CONTINUOUS - pantoprazole DR 40 mg tab(s) (PROTONIX) 40 mg ORAL DAILY (6 AM) - ferric gluconate 125 mg in NaCl 0.9% 100 mL (FERRLECIT) 125 mg INTRAVENOUS DAILY AT 6 PM - docusate sodium 100 mg cap(s) (COLACE) 100 mg ORAL BID PRN - acetaminophen 650 mg tab(s) (TYLENOL) 650 mg ORAL q 4 H PRN PHYSICAL EXAM: BP 114/56 Pulse 72 Temp 36.8 ?C (98.2 ?F) (Oral) Resp 16 Ht 152.4 cm (5') Wt 89.3 kg (196 lb 13.9 oz) SpO2 98% BMI 38.45 kg/m? Awake alert oriented x3 comfortable at rest Vital signs: Stable Lungs: No wheezing or crackles noted Cardiac: Regular rate rhythm Abdomen soft nontender. Bowel sounds active Extremities: No pitting edema. Patient Vitals for the past 48 hrs: BP Temp Temp src Pulse Resp SpO2 Height Weight 12/02/20 0901 114/56 ? ? 72 ? 12/02/20 0734 101/56 36.8 ?C (98.2 ?F) Oral 67 16 98 % ? ? 12/01/20 1944 121/60 37 ?C (98.6 ?F) Oral 81 18 97 % ? ? 12/01/20 1459 143/66 36.9 ?C (98.4 ?F) Oral 93 18 96 % ? ? 12/01/20 0814 126/66 36.8 ?C (98.2 ?F) ? 77 ? 95 % ? ? 12/01/20 0728 111/55 36.7 ?C (98.1 ?F) Oral 79 16 96 % ? ? 12/01/20 0616 111/61 37 ?C (98.6 ?F) Oral 80 18 ? ? ? 12/01/20 0549 110/60 37.1 ?C (98.7 ?F) Oral 85 16 ? ? ? 12/01/20 0331 133/58 36.9 ?C (98.4 ?F) Oral 92 20 ? ? ? 12/01/20 0312 118/66 37 ?C (98.6 ?F) Oral 86 16 97 % ? ? 12/01/20 0252 ? 37.1 ?C (98.8 ?F) Oral ? 12/01/20 0248 131/69 ? ? 94 20 95 % ? ? 12/01/20 0225 ? 152.4 cm (5') 89.3 kg (196 lb 13.9 oz) 12/01/20 0157 111/79 37.1 ?C (98.8 ?F) Oral 98 18 98 % ? ? 12/01/20 0130 ? 96 % ? ? 12/01/20 0100 120/62 ? ? 84 19 96 % ? ? 12/01/20 0000 128/69 ? ? 84 22 97 % ? ? 11/30/20 2300 137/67 ? ? (!) 92 19 97 % ? ? 11/30/20 210 137/70 ? ? 90 18 98 % ? ? 11/30/201948 ? 36.9 ?C (98.5 ?F) Oral ? 11/30/201946 173/75 ? ? (!) 107 20 99 % ? 89.8 kg (198 lb) Body mass index is 38.45 kg/m?. Intake/Output Summary (Last 24 hours) at 12/02/2020 1328 Last data filed at 12/02/2020 0800 Gross per 24 hour Intake 360 ml Output ? Net 360 ml O2 Therapy: Room Air No data recorded LABORATORY TESTS: ABG: No results for input(s): PH, PCO2, PO2, HCO3 in the last 168 hours. CBC: Recent Labs 12/02/20 0711 12/01/20 1447 12/01/20 0931 11/30/202050 WBC 4.11 4.52 -- 6.50 HB 8.0* 8.1* 8.3* 6.1* HCT 27.8* 28.5* -- 22.9* PLT 263 266 -- 368 COAG: No results for input(s): APTT, INR in the last 168 hours. BMP: Recent Labs 12/02/20 0711 11/30/202050 GLUC 91 106* NA 138 134* K 4.3 3.7 CHLOR 108* 100 CO2 25 22 ANION 5* 12 BUN 14 30* CREAT 1.18* 1.84* CHEM: Recent Labs 12/02/20 0711 11/30/202050 ALB 3.5* 4.2 TPROT 5.9* 7.2 CA 8.6 9.0 HEPATIC: Recent Labs 12/02/20 0711 11/30/202050 ALKPHOS 50 57 ALT 11 13 AST 16 25 TBILI 0.5 0.2 LIPASE -- 59 URINALYSIS:No results for input(s): SPGR, UGLUC, UBILI, UKET, UHB, UPROT, UROBIL, UWBC, SSA in the last 168 hours. Invalid input(s): NITR CARDIAC: Recent Labs 12/01/20 1447 12/01/20 0931 TROPT <0.010 <0.010 Plan of care discussed with: . SIGNATURE: Montez Crum MD DATE: December 02, 2020 TIME: 1:28 PM This note was partially created using voice recognition software and is inherently subject to errors including those of syntax and sound-alike substitutions which may escape proofreading. In such instances, original meaning may be extrapolated by contextual derivation. Normal [facility] Haptoglobinon 11-30-2020 Haptoglobin 191 mg/dL Normal 31-238 [facility] Comment on above: Performed By: #### H APTO, LD6 ####[facility] [address] [place], [place] [phone]#### IRON, RETIC ####[facility] [address] [place] [address] High Sens Troponin Ton 11-30 High Sensitivity FRANCINE 16 ng/L High <12 [facility] Comment on above: Performed By: #### H STNT ####[facility] [address] [place] [address] High Sensitivity FRANCINE 14 ng/L High <12 [facility] Comment on above: Performed By: #### H STNT ####[facility] [address] [place] [address] Iron and TIBCon 11-30-2020 Iron [Mass/Vol] 20 ug/dL Low 41-186 [facility] Comment on above: Performed By: #### H APTO, LD6 ####[facility] [address] [place], [place] [phone]#### IRON, RETIC ####[facility] [address] [place] [address] TIBC >520 High 232-386 [facility] Comment on above: Performed By: #### H APTO, LD6 ####[place] [address] [address] [place] [phone]#### IRON, RETIC ####[facility] [address] [place] [address] Transferrin Saturatn <4 Low 15-57 [facility] Comment on above: Performed By: #### H APTO, LD6 ####[place] [address] [address] [phone]#### IRON, RETIC ####[place] [address] LDon 11-30-2020 LD 208 U/L Normal 135-214 [facility] Comment on above: Performed By: #### H APTO, LD6 ####[place] [address] [address] [place] [phone]#### IRON, RETIC ####[place] [address] Lipaseon 11-30-2020 Lipase [Catalytic activity/Vol] 59 U/L Normal 16-61 [facility] Comment on above: Performed By: #### C K, LIPA ####[facility] [address] [place] [address] Occult Blood Diag.on 021 Occult Blood Diag. Negative Normal [facility] Comment on above: Performed By: #### O BDX ####[facility] [address] [place] [address] Occult Blood Source: Stool Normal [facility] Comment on above: Performed By: #### O BDX ####[facility] [address] [place] [address] Reticulocyteon 11-30-2020 Abs Retic 0.057 M/uL Normal 0.0180-0.100 0 [facility] Comment on above: Performed By: #### H APTO, LD6 ####[place] [address] [address] [place] [phone]#### IRON, RETIC ####[facility] [address] [place] [phone] Retic% 1.8 % Normal 0.4-2.0 [facility] Comment on above: Performed By: #### H APTO, LD6 ####[facility] [address] [place], [place] [phone]#### IRON, RETIC ####[facility] [address] Type and Screenon 11-30-2020 ABO/RH(D) Positive Normal [facility] Comment on above: Performed By: #### T SCR #### [facility] [address] Vitamin B12on 11-30-2020 Cobalamin (Vitamin B12) [Mass/Vol] 333 pg/mL Normal 232-1245 [facility] Comment on above: Performed By: #### F ERR, B12, SERFOL ####[facility] [address] [place] [phone] XR CHEST 1V FRONTAL PORTon 0 11-30-2020 XR CHEST 1V FRONTAL PORT * * *Final Report* * * DATE OF EXAM: Nov 30 2020 9:35PM MDX [id number] - XR CHEST 1V FRONTAL PORT / PROCEDURE REASON: Chest pain * * * * Physician Interpretation * * * * EXAMINATION: CHEST RADIOGRAPH (PORTABLE SINGLE VIEW AP) Exam Date/Time: 11/30/2020 9:35 PM CLINICAL HISTORY: Chest pain MQ: XCPR_5 Comparison: None. RESULT: Lines, tubes, and devices: _ Lungs and pleura: No focal infiltrates or pleural effusions. _ No pneumothorax. Cardiomediastinal silhouette: Stable cardiomediastinal silhouette. Tortuous aorta. Large hiatal hernia. Bones and soft tissues: The bony thorax is intact. _ IMPRESSION: No acute radiographic abnormality. Hiatal hernia. Overlock Waistline Joiner: MAMTAB Transcribe Date/Time: Nov 30 2020 9:42P Dictated by : CANDI RAMIRES MD This examination was interpreted and the report reviewed and electronically signed by: CANDI RAMIRES MD on Nov 30 2020 9:43PM EST [id number] [facility] PROGRESSon 06-08-2018 Protein HNO ID: [id number] Author: Adrián Beckford Service: (none) Author Type: Physician Type: Progress Notes Filed: 06/08/2018 4:26 PM Note Text: Presbyopia (primary encounter diagnosis) Adrián Beckford MD [facility] Vital Signs Date Time Vital Sign Value Performing Clinician [facility] 07-12-2025 14:58-0400 Body height 152.4 cm Tyler Banerjee MD Work Phone: [facility] 07-12-2025 14:58-0400 Body mass index (BMI) [Ratio] 33.2 kg/m2 Tyler Banerjee MD Work Phone: [facility] 07-12-2025 14:58-0400 Body weight 77.11 kg Tyler Banerjee MD Work Phone: [facility] 03-28-2025 17:04-0400 Body height 154.94 cm Skinny London CONFIGURATOR-C Work Phone: 03-28-2025 17:04-0400 Body mass index (BMI) [Ratio] 35.5 kg/m2 Skinny London CONFIGURATOR-C Work Phone: 03-28-2025 17:04-0400 Body temperature 98.1 [degF] Skinny [place] CONFIGURATOR-C Work Phone: 03-28-2025 17:04-0400 Body weight 85.27 kg Skinny [place] CONFIGURATOR-C Work Phone: 03-28-2025 17:04-0400 Diastolic blood pressure 80 mm[Hg] Skinny [place] CONFIGURATOR-C Work Phone: 03-28-2025 17:04-0400 Heart rate 84 /min Skinny [place] CONFIGURATOR-C Work Phone: 03-28-2025 17:04-0400 Respiratory rate 18 /min Skinny [place] CONFIGURATOR-C Work Phone: 03-28-2025 17:04-0400 SaO2% (BldA) [Mass fraction] 97 % Skinny [place] CONFIGURATOR-C Work Phone: 03-28-2025 17:04-0400 Systolic blood pressure 120 mm[Hg] Skinny Surya CONFIGURATOR-C Work Phone: 09-08-2024 10:50-0400 Body height 152.4 cm Fariha Anders VENEER MARKER - [employer] Work Phone: [facility] 09-08-2024 10:50-0400 Body mass index (BMI) [Ratio] 38.2 kg/m2 Fariha Anders VENEER MARKER - [employer] Work Phone: [facility] 09-08-2024 10:50-0400 Body weight 88.72 kg Fariha Anders VENEER MARKER - [employer] Work Phone: [facility] 09-08-2024 10:50-0400 Diastolic blood pressure 94 mm[Hg] Fariha Anders VENEER MARKER - [employer] Work Phone: [facility] 09-08-2024 10:50-0400 Heart rate 89 /min Fariha Anders VENEER MARKER - [employer] Work Phone: [facility] 09-08-2024 10:50-0400 Systolic blood pressure 135 mm[Hg] Fariha Anders VENEER MARKER - [employer] Work Phone: [facility] 06-20-2024 10:43-0400 Body height 152.4 cm Tyler Banerjee MD Work Phone: [facility] 06-20-2024 10:43-0400 Body mass index (BMI) [Ratio] 37.5 kg/m2 Tyler Banerjee MD Work Phone: [facility] 06-20-2024 10:43-0400 Body weight 87.09 kg Tyler Banerjee MD Work Phone: [facility] 11-23-2023 20:56-0500 Body height 154.94 cm [facility] 11-23-2023 20:56-0500 Body mass index (BMI) [Ratio] 38.5 kg/m2 11-23-2023 20:56-0500 Body temperature 97.9 [degF] [facility] 11-23-2023 20:56-0500 Body weight 92.53 kg [facility] 11-23-2023 20:56-0500 Diastolic blood pressure 70 mm[Hg] 11-23-2023 20:56-0500 Heart rate 107 /min [facility] 11-23-2023 20:56-0500 Respiratory rate 18 /min [facility] 11-23-2023 20:56-0500 SaO2% (BldA) [Mass fraction] 96 % 11-23-2023 20:56-0500 Systolic blood pressure 142 mm[Hg] 08-27-2023 11:41-0400 Body height 152.4 cm Tyler Banerjee MD Work Phone: [facility] 08-27-2023 11:41-0400 Body mass index (BMI) [Ratio] 39.65 kg/m2 Tyler Banerjee MD Work Phone: [facility] 08-27-2023 11:41-0400 Body weight 92.08 kg Tyler Banerjee MD Work Phone: [facility] 08-27-2023 11:41-0400 Diastolic blood pressure 84 mm[Hg] Tyler Banerjee MD Work Phone: [facility] 08-27-2023 11:41-0400 Systolic blood pressure 138 mm[Hg] Tyler Banerjee MD Work Phone: [facility] 08-21-2023 17:35-0400 Body mass index (BMI) [Ratio] 38.3 kg/m2 08-21-2023 17:35-0400 Body temperature 98.1 [degF] [facility] 08-21-2023 17:35-0400 Body weight 92.07 kg [facility] 08-21-2023 17:35-0400 Diastolic blood pressure 70 mm[Hg] 08-21-2023 17:35-0400 Heart rate 81 /min [facility] 08-21-2023 17:35-0400 Respiratory rate 18 /min [facility] 08-21-2023 17:35-0400 SaO2% (BldA) [Mass fraction] 95 % 08-21-2023 17:35-0400 Systolic blood pressure 142 mm[Hg] 08-03-2023 15:31-0400 Body mass index (BMI) [Ratio] 38.1 kg/m2 08-03-2023 15:31-0400 Body temperature 98.4 [degF] [facility] 08-03-2023 15:31-0400 Body weight 91.62 kg [facility] 08-03-2023 15:31-0400 Diastolic blood pressure 80 mm[Hg] 08-03-2023 15:31-0400 Heart rate 82 /min [facility] 08-03-2023 15:31-0400 Respiratory rate 18 /min [facility] 08-03-2023 15:31-0400 SaO2% (BldA) [Mass fraction] 96 % 08-03-2023 15:31-0400 Systolic blood pressure 130 mm[Hg] 05-22-2023 11:42-0400 Body height 152.4 cm Skinny [place] Work Phone: [facility] 05-22-2023 11:42-0400 Body mass index (BMI) [Ratio] 36.91 kg/m2 Skinny [place] Work Phone: [facility] 05-22-2023 11:42-0400 Body weight 85.73 kg Skinny [place] Work Phone: [facility] 05-11-2023 16:32-0400 Body height 154.94 cm [facility] 04-09-2023 16:56-0400 Body mass index (BMI) [Ratio] 38 kg/m2 04-09-2023 16:56-0400 Body temperature 97.7 [degF] [facility] 04-09-2023 16:56-0400 Body weight 91.17 kg [facility] 04-09-2023 16:56-0400 Diastolic blood pressure 80 mm[Hg] 04-09-2023 16:56-0400 Heart rate 81 /min [facility] 04-09-2023 16:56-0400 Respiratory rate 18 /min [facility] 04-09-2023 16:56-0400 SaO2% (BldA) [Mass fraction] 97 % 04-09-2023 16:56-0400 Systolic blood pressure 130 mm[Hg] 11-26-2022 14:32-0500 Body height 154.94 cm [facility] 11-26-2022 14:32-0500 Body mass index (BMI) [Ratio] 37.5 kg/m2 11-26-2022 14:32-0500 Body temperature 97.3 [degF] [facility] 11-26-2022 14:32-0500 Body weight 90.26 kg [facility] 11-26-2022 14:32-0500 Diastolic blood pressure 80 mm[Hg] 11-26-2022 14:32-0500 Heart rate 95 /min [facility] 11-26-2022 14:32-0500 Respiratory rate 18 /min [facility] 11-26-2022 14:32-0500 SaO2% (BldA) [Mass fraction] 94 % 11-26-2022 14:32-0500 Systolic blood pressure 180 mm[Hg] 09-08-2022 16:47-0400 Body mass index (BMI) [Ratio] 38 kg/m2 09-08-2022 16:47-0400 Body temperature 97.9 [degF] [facility] 09-08-2022 16:47-0400 Body weight 91.17 kg [facility] 09-08-2022 16:47-0400 Diastolic blood pressure 70 mm[Hg] 09-08-2022 16:47-0400 Heart rate 97 /min [facility] 09-08-2022 16:47-0400 Respiratory rate 18 /min [facility] 09-08-2022 16:47-0400 SaO2% (BldA) [Mass fraction] 95 % 09-08-2022 16:47-0400 Systolic blood pressure 110 mm[Hg] Encounters Encounter Date Encounter Type Care Provider Facility Start: 07-12-2025 End: 07-12-2025 ambulatory TYLER BANERJEE [facility] Start: 07-12-2025 End: 07-12-2025 Subsequent hospital visit by physician Tyler Banerjee MD Work Phone: [facility] Comment on above: Encounter for screen ing mammogram for malignant neoplasm of breast Start: 07-12-2025 End: 09-11-2025 Follow-up encounter Tyler Banerjee MD Work Phone: [facility] Comment on above: Bilateral screening mammogram with tomosynthesis Start: 07-12-2025 End: 07-12-2025 Telephone encounter Tyler Banerjee MD Work Phone: [facility] [place] Start: 06-06-2025 End: 09-05-2025 Transcribe Orders Tyler Banerjee MD Work Phone: [facility] Comment on above: Encounter for screen ing mammogram for malignant neoplasm of breast (Primary Dx) Start: 03-28-2025 End: 03-28-2025 ambulatory Skinny [place] CONFIGURATOR-C Work Phone: Work Phone: Start: 03-28-2025 End: 03-28-2025 Patient encounter procedure Skinny [place] CONFIGURATOR-C -Laboratory Specimen Work Phone: Start: 03-28-2025 End: 03-28-2025 ambulatory Skinny [place] CONFIGURATOR Facility: Start: 10-31-2024 End: 10-31-2024 ambulatory Skinny [place] CONFIGURATOR Facility: Start: 09-27-2024 End: 09-27-2024 Telephone encounter Fariha Anders APRN - [employer] Work Phone: [facility] [place] Start: 09-08-2024 End: 09-08-2024 Office outpatient visit 10 minutes Fariha Anders VENEER MARKER - [employer] Work Phone: [facility] Gynec[facility] Oncology [facility] Comment on above: Malignant neoplasm o f cervix, unspecified site (HCC) (Primary Dx) Start: 09-08-2024 End: 09-08-2024 ambulatory [facility] Start: 06-20-2024 End: 06-20-2024 Subsequent hospital visit by physician Tyler Banerjee MD Work Phone: [facility] Comment on above: Encounter for screen ing mammogram for malignant neoplasm of breast Start: 05-03-2024 End: 08-02-2024 Transcribe Orders Tyler Banerjee MD Work Phone: [facility] Comment on above: Encounter for screen ing mammogram for malignant neoplasm of breast (Primary Dx) Start: 04-15-2024 Telephone encounter Saida Velasquez [facility] [employer] Comment on above: Appointment Start: 11-23-2023 End: 11-23-2023 ambulatory Work Phone: Start: 11-23-2023 End: 11-23-2023 Patient encounter procedure -Laboratory, Specimen Work Phone: Start: 09-09-2023 End: 09-09-2023 Subsequent hospital visit by physician Tyler Banerjee MD Work Phone: [facility] Comment on above: History of cervical cancer; Lung nodule; Nicotine dependence, cigarettes, in remission Start: 08-28-2023 Telephone encounter Tyler Barber MD Work Phone: [facility] Start: 08-27-2023 End: 08-27-2023 Periodic preventive med est patient 65yrs& older Tyler Banerjee MD Work Phone: [facility]nec[facility] Oncology Comment on above: History of cervical cancer (Primary Dx); S/P radiation therapy; Lung nodule; Nicotine dependence, cigarettes, in remission Start: 05-22-2023 End: 05-22-2023 Subsequent hospital visit by physician Skinny London Work Phone: [facility] Comment on above: Encounter for screen ing mammogram for malignant neoplasm of breast Start: 05-11-2023 End: 05-11-2023 ambulatory Work Phone: Start: 05-11-2023 End: 05-11-2023 Patient encounter procedure -Laboratory, Specimen Work Phone: Start: 04-20-2023 Transcribe Orders Tyler Vilchis MD Work Phone: [facility] Comment on above: Encounter for screen ing mammogram for malignant neoplasm of breast (Primary Dx) Start: 04-09-2023 End: 04-09-2023 [facility] Work [facility] Start: 01-16-2023 End: 01-16-2023 Patient encounter procedure -Laboratory, Specimen Work Phone: Start: 11-26-2022 End: 11-26-2022 ambulatory Work Phone: Start: 11-26-2022 End: 11-26-2022 Patient encounter procedure -Laboratory, Specimen Start: 11-18-2022 ambulatory Nohemi Martinez APRN.[employer] Work Phone: Pulmonary Medicine Start: 07-25-2022 ambulatory UNKNOWN PROVIDER [facility] Start: 07-25-2022 End: 07-25-2022 Subsequent hospital visit by physician Dayday Taveras Cat Scan Rm [address] 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) Start: 04-18-2022 ambulatory UNKNOWN PROVIDER [facility] Start: 04-18-2022 End: 04-18-2022 Subsequent hospital visit by physician Tyler Banerjee MD Work Phone: [facility] [email or web address] Comment on above: Arrived Start: 09-13-2021 ambulatory Skinny [facility] Start: 08-09-2021 ambulatory [facility]inny [facility] Start: 09-17-2020 End: 09-17-2020 Subsequent hospital visit by physician Skinny London Work Phone: [facility] [email or web address] Comment on above: Arrived Start: 09-14-2019 End: 09-14-2019 Subsequent hospital visit by physician Skinny [place] Work Phone: [facility] [email or web address] Comment on above: Arrived Procedures Date Procedure Procedure Detail Performing Clinician Start: 07-12-2025 End: 07-12-2025 Mammography Tyler zamudio MD Work Phone: Start: 09-08-2024 Iadna human papillom avirus high-risk types Fariha Anders VENEER MARKER - [employer] Work Phone: Start: 09-08-2024 Cytp cerv/vag auto t hin layer prep mnl screen Fariha Anders VENEER MARKER - [employer] Work Phone: Start: 06-20-2024 End: 06-20-2024 Screening digital breast tomosynthesis bi Tyler Banerjee MD Work Phone: Start: 05-22-2023 End: 05-22-2023 Screening digital breast tomosynthesis bi Tyler Banerjee MD Work Phone: Start: 04-18-2022 Screening digital br east tomosynthesis bi Tyler Banerjee MD Work Phone: Start: 11-30-2020 Antibody screen Comment on above: Performed By: #### T SCR #### [facility] [address] [place] [address] History of radiation therapy S/P radiation therapy Tyler Banerjee MD Work Phone: Plan of Treatment Date Care Activity Detail Author Start: 04-07-2028 DTaP/Tdap/Td vaccine (2 - Tdap) DTaP/Tdap/Td vaccine (2 - Tdap) [facility] Start: 04-07-2028 DTaP/Tdap/Td Vaccine s (3 - Td or Tdap) DTaP/Tdap/Td Vaccines (3 - Td or Tdap) [facility] Start: 04-07-2028 Urine microalbumin profile DTaP,Tdap,Td Vaccine (3 - Td or Tdap) [facility] Start: 2027 RSV Immunization for Adults (1 - 1-dose 75+ series) RSV Immunization for Adults (1 - 1-dose 75+ series) [facility] Start: 07-12-2026 Screening for malign ant neoplasm of breast Mammogram [facility] Start: 2025 End: 2025 Patient encounter procedure 2025 10:00 AM EST Office Visit [facility] [place] [address] [place] [address] Fariha Anders APRN - [employer] [address] [place], [place] [id number] [facility] [place] Start: 07-17-2025 COVID-19 Vaccine ( season) COVID-19 Vaccine ( season) [facility] Start: 07-17-2025 Influenza vaccination Influenza Vacc ine (#1) [facility] Start: 06-20-2025 Screening for malign ant neoplasm of breast Mammogram [facility] Start: 11-16-2024 Medicare Advantage Annual Wellness Visit Medicare Advantage Annual Wellness Visit [facility] Start: 09-08-2024 End: 09-08-2024 Patient encounter procedure [facility] Start: 07-17-2024 COVID-19 Vaccine ( season) COVID-19 Vaccine () [facility] Start: 07-17-2024 COVID-19 Vaccine ( season) COVID-19 Vaccine ( season) [facility] Start: 07-17-2024 Influenza vaccination [facility] Start: 05-22-2024 Screening for malign ant neoplasm of breast Mammogram [facility] Start: 04-18-2024 Screening for malign ant neoplasm of breast Breast cancer screen [facility] Start: 12-03-2023 DIABETES SCREEN DIABETES SCREEN [facility] Start: 12-03-2023 Diabetes Screening Diabetes Screenin g [facility] Start: 11-16-2023 Advance Directive Discussion Advance Directive Discussion [facility] Start: 11-16-2023 Behavioral Health Screening Behavioral Health Screening [facility] Start: 11-16-2023 Medicare Advantage Annual Wellness Visit Medicare Advantage Annual Wellness Visit [facility] Start: 09-09-2023 End: 09-09-2023 Patient encounter procedure 09/09/2023 1:00 PM EDT Appointment [facility] [address] [place] [address] Tyler Banerjee MD [address] [facility] [address] [place], [place] [id number] [facility] [employer] [facility] Start: 08-27-2023 End: 08-27-2024 CT Chest for screening WO contrast CT lung screening low dose Imaging Routine History of cervical cancer Lung nodule Nicotine dependence, cigarettes, in remission Expected: 08/27/2023, Expires: 08/27/2024 [facility] Work Phone: Comment on above: Expected: 08/27/2023 , Expires: 08/27/2024 Start: 07-17-2023 Covid-19 Vaccine ( season) Covid-19 Vaccine () [facility] Start: 07-17-2023 COVID-19 Vaccine () COVID-19 Vaccine () [facility] Start: 07-17-2023 Influenza vaccination Influenza Vacc ine (#1) [facility] Start: 01-21-2023 COVID-19 Vaccine (5 - Pfizer series) COVID-19 Vaccine (5 - Pfizer series) [facility] Start: 11-16-2022 ADVANCE DIRECTIVE DISCUSSION ADVANCE DIRECTIVE DISCUSSION [facility] Start: 11-16-2022 DEPRESSION ASSESSMENT DEPRESSION ASS ESSMENT [facility] Start: 07-24-2022 End: 07-24-2022 Patient encounter procedure 07/24/2022 Office Visit Gynecologic Oncology Tyler Banerjee MD [address] [facility] [address] [place] [address] [facility] Start: 07-17-2022 Influenza vaccination [facility] Start: 10-22-2021 COVID-19 VACCINE (4 - Booster for Pfizer series) COVID-19 VACCINE (4 - Booster for Pfizer series) [facility] Start: 09-17-2021 Screening for malign ant neoplasm of breast Mammogram Screening [facility] Start: 09-14-2021 Screening for malign ant neoplasm of breast Breast cancer screen [place], [place] Start: 07-25-2021 End: 07-25-2021 Office Visit 07/25/2021 Office Visit Gynecologic Oncology Tyler Banerjee MD [address] [address] [facility] [place], [place] [id number] [facility] Start: 08-17-2020 Breast cancer screen Breast cancer s creen [place], [place] Start: 07-17-2020 Influenza vaccination Flu vaccine (# 1) [place] Start: 07-17-2019 Influenza vaccination Flu vaccine (# 1) [place] Start: 05-06-2019 Annual Wellness Visi t (AWV) Annual Wellness Visit (AWV) [place] Start: 2017 BONE DENSITY BONE DENSITY [facility] Start: 2017 DEXA (modify frequen cy per FRAX score) DEXA (modify frequency per FRAX score) [place] Start: 2017 Pneumococcal 65+ yea rs Vaccine (1 - PCV) Pneumococcal 65+ years Vaccine (1 - PCV) [facility] Start: 2017 Pneumococcal 65+ yea rs Vaccine (1 of 1 - PPSV23) Pneumococcal 65+ years Vaccine (1 of 1 - PPSV23) [place] Start: 2017 Pneumococcal Vaccine : 65+ (1 of 1 - PCV) Pneumococcal Vaccine: 65+ (1 of 1 - PCV) [facility] Start: 2017 Pneumococcal Vaccine : 65+ Years (1 - PCV) Pneumococcal Vaccine: 65+ Years (1 - PCV) [facility] Start: 2017 Pneumococcal Vaccine : 65+ Years (1 of 1 - PCV) Pneumococcal Vaccine: 65+ Years (1 of 1 - PCV) [facility] Start: 2017 PNEUMOCOCCAL: 65+ (1 - PCV) PNEUMOCOCCAL: 65+ (1 - PCV) [facility] Start: 2017 Screening for osteoporosis Bone Density Screening [facility] Start: 05-23-2016 Creatinine measurement Creatinine mo nitoring [place] Start: 05-23-2016 Creatinine monitoring Creatinine mon itoring [place] Start: 2012 RSV Immunization age d 60 or older (1 - 1-dose 60+ series) RSV Immunization aged 60 or older (1 - 1-dose 60+ series) [facility] Start: 2012 RSV Vaccine (1 - 1-d ose 60+ series) RSV Vaccine (1 - 1-dose 60+ series) [facility] Start: 2007 Screening for osteoporosis DEXA (modify frequency per FRAX score) [facility] Start: 2002 Colon cancer screen colonoscopy Colon cancer screen colonoscopy [place], [place] Start: 2002 Pneumococcal Vaccine : 50+ Years (1 of 1 - PCV) Pneumococcal Vaccine: 50+ Years (1 of 1 - PCV) [facility] Start: 2002 Screening for malign ant neoplasm of colon Colon cancer screen colonoscopy [place] Start: 2002 Shingles Vaccine (1 of 2) Shingles Vaccine (1 of 2) [facility] Start: 2002 SHINGRIX VACCINE (1 of 2) SHINGRIX VACCINE (1 of 2) [facility] Start: 2002 Zoster Vaccines (1 o f 2) Zoster Vaccines (1 of 2) [facility] Start: 1997 COLOGUARD (FIT-DNA) COLOGUARD (FIT-D NA) [facility] Start: 1997 Colonoscopy COLONOSCOPY [facility] Start: 1997 COLORECTAL CANCER SCREENING COLORECTAL CANCER SCREENING [facility] Start: [address] COLONOGRAPHY [facility]ame [facility] Start: 1997 FECAL OCCULT BLOOD FECAL OCCULT BLOO D [facility] Start: 1997 [facility] Start: 1997 LIPID SCREEN LIPID SCREEN [facility] Start: 1997 Screening for malign ant neoplasm of colon [facility] Start: 1997 SIGMOIDOSCOPY [facility]COPY [facility] Start: 1992 Diabetes screen Diabetes screen [place], [place] Start: 1992 Mammography MAMMOGRAM [facility] Start: 1987 Diabetes screen Diabetes screen [facility] Start: 1971 DTaP/Tdap/Td vaccine (1 - Tdap) DTaP/Tdap/Td vaccine (1 - Tdap) [place] Start: 1971 Hepatitis A Vaccines (1 of 2 - Risk 2-dose series) Hepatitis A Vaccines (1 of 2 - Risk 2-dose series) [facility] Start: 1971 Urine microalbumin profile DTAP,TDAP,TD (1 - Tdap) [facility] Start: 1970 Diabetes mellitus screening Diabetes Screening [facility] Start: 1970 Hepatitis C screening S [facility] Start: 1970 HEPATITIS C SCREENING HEPATITIS C SC ARIANNE [facility] Start: 1964 Depression Screen Depression Screen [facility] Start: 1964 Depression Screening Depression Scre ening [facility] Start: 1962 Lipid panel [facility] Start: 1962 Lipid screen Lipid screen [place], [place] Start: 1952 Annual Wellness Visi t (AWV) Annual Wellness Visit (AWV) [facility] Start: 1952 Hepatitis C screen Hepatitis C scree n [place], [place] Start: 1952 Hepatitis C screening Hepatitis C sc lucina [place] Start: 1952 Lipid panel Lipid Panel [facility] Start: 1952 Medicare Advantage Annual Wellness Visit (AWV) Medicare Advantage Annual Wellness Visit (AWV) [facility] Start: 1952 Potassium monitoring Potassium monit oring [place], [place] Start: 1952 Screening for malign ant neoplasm of colon [facility] Start: 1952 Screening for osteoporosis Bone Density Scan [facility] Start: 1952 Thyroid stimulating hormone measurement TSH Level [facility] End: 09-09-2023 CT Chest for screening WO contrast [facility] System Work Phone: Comment on above: Once for 1 Occurrenc es starting 09/09/2023 until 09/09/2023 End: 07-25-2022 CT CHEST LOW DOSE (LDCT) [facility] Work Phone: Comment on above: 1 Occurrences starti ng 07/25/2022 until 07/25/2022 Cytology Cervical or vaginal smear or scraping study Pap Smear Pathology and Cytology Routine History of cervical cancer S/P radiation therapy Ordered: 08/27/2023 [facility] Comment on above: Ordered: 08/27/2023 End: 09-14-2019 Screening digital breast tomosynthesis bi PHILIP ROYER DIGITAL SCREEN BILATERAL Imaging Routine Once for 1 Occurrences starting 09/14/2019 until 09/14/2019 [place] Comment on above: Once for 1 Occurrenc es starting 09/14/2019 until 09/14/2019 Screening digital breast tomosynthesis bi [place] End: 09-17-2020 Screening digital breast tomosynthesis bi Philip Royer Digital Screen Bilateral Imaging Routine Once for 1 Occurrences starting 09/17/2020 until 09/17/2020 [place], [place] Comment on above: Once for 1 Occurrenc es starting 09/17/2020 until 09/17/2020 Immunizations Immunization Date Immunization Notes Care Provider Fa [facility] 07-29-2022 influenza virus vaccine, unspecified formulation Skinny London Work Phone: [facility] 03-06-2022 Covid-19, Pfizer Gra y Top, Do Not Dilute, (Age 12 Y+), Im, L Skinny London Work Phone: [facility] 08-27-2021 Pfizer SARS-CoV-2 Vaccination Skinny London Work Phone: [facility] 02-19-2021 COVID-19 original vaccine, age 12+ yr, monovalent (PFIZER-BIONTECH - PURPLE TOP) Nohemi Barrowruder VENEER MARKER[employer] [facility] Work Phone: [facility] 01-29-2021 COVID-19 original vaccine, age 12+ yr, monovalent (PFIZER-BIONTECH - PURPLE TOP) Nohemi Barrowruder [employer] Work Phone: [facility] 04-07-2018 tetanus toxoid, reduced diphtheria toxoid, and acellular pertussis vaccine, adsorbed Payers Date Payer Category Payer Self-pay [id number] 2022 Medicare HMO [facility] SECURE [id number] 2020 Medicare [id number] 2017 Medicare [facility]-MEDICARE ADVANTAGE xxxxxxxxxxx 2017-Present [phone] [address] [place] [address] xxxxxxxxxxx [id number] 2017 Medicare [id number] 1950 Unknown [id number] 1950 Unknown [id number] 1950 Unknown [id number] 1950 Unknown [id number] 1950 Unknown [id number] Unknown Unknown [id number] Unknown [id number] Social History Date Type Detail Facility Start: 04-28-2019 End: 10-31-2024 Tobacco smoking status ALIS Never smoker [place] Start: 04-28-2019 End: 07-12-2025 Alcohol intake Yes [place] Start: 10-21-2017 Alcohol Comment 1-2 a week [place], [place] Start: 1950 Sex Assigned At Not on file M [place] Start: 07-19-2020 End: 05-22-2023 Tobacco use and exposure Never used [place] Start: 07-19-2020 End: 07-12-2025 Alcohol intake Current drinker of alcohol (finding) [place] Start: 07-25-2021 End: 07-12-2025 Alcohol intake [facility] Work Phone: Start: 07-07-2022 End: 05-22-2023 Exposure to SARS-CoV-2 (event) Not sure [facility] Start: 12-01-2020 End: 05-22-2023 Tobacco smoking status NHIS Ex-smoker [facility] Work Phone: End: 11-16-1986 History of tobacco use Current smoker [facility] Work Phone: End: 11-16-1986 History of tobacco use Cigarette Smoker [facility] Work Phone: Start: 12-01-2020 Tobacco Comment quit 1987 [facility] Start: 12-01-2020 Alcohol Comment social [facility] Start: 11-26-2022 End: 08-03-2023 Tobacco smoking status NHIS Unknown if ever smoked Start: 1950 Sex Assigned At Female [facility] National Score (1-100), lower number is lower risk Not on file [facility] Start: 06-16-2022 Sex Female (finding) [facility] Clinical Notes 11-18-2022 to 07-12-2025 Telephone Encounter - Paolayumiko James - 07/12/2025 11:22 AM EDTTelephone Encounter - Paolayumiko James - 07/12/2025 11:22 AM EDT Note Date & Type Note Facility 07-12-2025 Telephone encounter Note Form atting of this note might be different from the original. Patient contacted to r/s upcoming appt. Requested for callback. [facility] 07-12-2025 Miscellaneous Notes Formattin g of this note might be different from the original. Patient contacted to r/s upcoming appt. Requested for callback. documented in this encounter [facility] 03-28-2025 Evaluation note Diagnosis Onset Date Resolution Hypothyroid acute March 28 4:39pm Maxillary sinusitis acute March 162024 4:39pm Work Phone: 1(145) 394-101111-12-2024 Telephone encounter Note* Telephone Encounter - Stuart Valente - 09/27/2024 12:44 PM EST Patient would like to discuss her HPV results, please contact when able, thank you [facility] [id number] Miscellaneous Notes* Telephone Encounter - Stuart Valente - 09/27/2024 12:44 PM EST Patient would like to discuss her HPV results, please contact when able, thank you documented in this [id number] NoteSpecimen AdequacyThe specimen is satisfactory for evaluation.09/21/2024 10:12 PM [facility] [employer] Phone: 1(678) 479-132511-06-2024 NoteGynecologic cytology smear evaluation is subject to false positive and false negative interpretation as evidenced by published data. Your patient's Pap test results should thus be interpreted in conjunction with their clinical history and physical examination.[employer] Phone: 1(262) 184-845310-24-2024 History of Present illness Narrative* MAGEN Valdez CNP - 09/08/2024 11:00 AM EDT Chief Complaint Patient presents with Follow-up HISTORY OF THE PRESENT ILLNESS: Shine Min is a 74 y.o. female who presents for evaluation and management of the above. IB1 SCCA G2 cervical cancer, Radical Hyst BSO by Jose Guadalupe 03/2014; adj XRT RTOG #1203/IMRT Path - 3 cm, depth invasion 11 mm, LVS equiv (present on cone), 20 nodes (-) Finished treatment June of 2014. Denies any toxicities from the treatment other than lymphedema. She has been seen in the lymphedemaclinic and wears support stockings. In January 2017 she reported new onset of vaginal bleeding and back pain. CT abdomen and pelvis IMPRESSION: 1. No evidence of recurrent malignancy. 2. Stable hepatic cysts. 3. Moderate-sized hiatal hernia. CXR [facility] in 2020- That showed a pulmonary nodule. On 08/23/21 CT of chest showed: IMPRESSION: 1. Pulmonary nodule in the inferolateral aspect of the left upper lobe has demonstrated interval increase in size compared to 2014. Based on the 202 ACR white paper [...] new suspicious pulmonary nodules. ASSESSMENT CATEGORY (version 1. - 2019): Lung-RADS Assessment Category 2 - Benign appearance or behavior. Recommend continued annual low-dose screening CT in 12 months.. Pap smear 07/2022 - NILM, HR HPV negative Interval History: The patient presents to the office today for routine surveillance of disease. Doing well since her last visit. Denies chest pain, shortness of breath. Denies abdominal pain, nausea, vomiting, changesin weight. Denies pelvic pain, vaginal bleeding, vaginal discharge. Does have some vaginal dryness. Now she has 4 grandchildren! 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 Retired. Doing well! Past Medical History: Diagnosis [...] Social History Tobacco Use Smoking status: Former Current packs/day: 0.00 Types: Cigarettes Quit date: 11/16/1986 Years since quittin.9 Smokeless tobacco: Never Substance Use Topics Alcohol [...] Prior to Visit Medication Sig Dispense Refill ezetimibe (Zetia) 10 MG tablet Take 10 mg by mouth daily. atorvastatin (Lipitor) 10 MG tablet Take 10 mg by mouth daily. ferrous fumarate-vitamin C ER (Seymour-Sequeles 65-25) Take 1 tablet by mouth in the morning and 1 tablet at noon and 1 tablet in the evening. Take with meals. Do not crush, chew, or split.. ferrous sulfate 325 (65 Fe) MG tablet Take 325 mg by mouth daily (with breakfast). levothyroxine (Tirosint) 137 MCG capsule Take by mouth every morning (before breakfast). lisinopril-hydroCHLOROthiazide 20-12.5 MG tablet Take 1 tablet by mouth in the morning. losartan (Cozaar) 100 MG tablet Take 100 mg by mouth daily. Multiple Vitamins-Minerals (multivitamin with minerals) tablet Take 1 tablet by mouth daily. niacin (Slo-Niacin) 500 MG ER tablet Take 1,000 mg by mouth Nightly. pantoprazole (ProtoNix) 40 MG EC tablet Take 40 mg by mouth every morning (before breakfast). Do not crush, chew, or split. simvastatin (Zocor) 10 MG tablet Take 10 mg by mouth Nightly. No current facility-administered medications on file prior to visit. Allergies as of 09/08/2024 - Reviewed 09/08/2024 Allergen Reaction Noted Ciprofloxacin 10/27/2018 Penicillins 01/30/2016 Statins 09/24/2022 Sulfa antibiotics 01/30/2016 REVIEW OF SYSTEMS: A 12 point review of systems was performed and is as per the history of the present illness, all other systems were reviewed and are negative. Vitals: 09/08/24 1050 BP: (!) 135/94 Pulse: 89 Body mass index is 38.2 kg/m . Physical Exam Constitutional: Appearance: Normal [...] place, and time. ASSESSMENT/PLAN: Diagnosis Plan 1. Malignant neoplasm of cervix, unspecified site (HCC) Pap Smear HPV High Risk PCR HPV High Risk PCR Shine Min is a 74 y.o. 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 Currently, doing well, without evidence of recurrent disease. ECOG performance status of 0. Papsmear obtained, follow up on results and treat as indicated. The signs and symptoms of recurrence were reviewed and the patient will contact our office in the interim should any of these arise. Follow up in 1 year for annual exam. Disclaimer: This note was dictated by speech recognition. I apologize for minor errors in event marketing coordinator which may be present. I personally spent over half of a total 15 minutes face to face with the patient in counseling and discussion and/or coordination of care as described above. documented in this [facility]05-31-2024 Telephone encounter Note* Telephone Encounter - Saida Burk - 04/15/2024 8:11 AM EDT ANNUAL MEDICARE WELLNESS VISIT OUTREACH Outreach attempt to contact patient and schedule Medicare wellness. Patient identified by name and date of : NO Outreach outcome: Unable to make contact: 2nd attempt Left message This is Saida Burk calling from [facility]. Dr. Ryan Read MD noticed that you're due for your Medicare wellness visit. They asked me to call and assist you with scheduling an appointment with your primary care office. Can I set that up for you? No Follow up needed:No If the patient asks what a Medicare Wellness visit is: The Medicare wellness visit isn't an exam. It is a great way to get up-to-date with your provider'scare team. The purpose of the Annual Wellness Visit under Medicare is to paint a picture of your current stateof health and to create a baseline for future care. Any additional test or labs that may be required as a result of the findings of your annual wellness visit would be billed separately by your doctor and would fall under a different benefit than yourannual wellness visit. Medicare also covers a number of other preventative services at no cost such as preventative cancerscreenings, bone density measurement, and flu shots. Your visit may include: A review of your medical and family history. A review of your current providers and prescriptions. Height, weight, blood pressure, and other routine measurements. Personalized health advice. A list of risk factors and treatment options for you. A screening schedule (like a checklist) for appropriate preventive services. Siada Burk April 15, 2024 8:12 AM [facility]05-31-2024 Miscellaneous Notes* Telephone Encounter - Saida Burk - 04/15/2024 8:11 AM EDT ANNUAL MEDICARE WELLNESS VISIT OUTREACH Outreach attempt to contact patient and schedule Medicare wellness. Patient identified by name and date of : NO Outreach outcome: Unable to make contact: 2nd attempt Left message This is Saida Burk calling from [facility]. Dr. Ryan eRad MD noticed that you're due for your Medicare wellness visit. They asked me to call and assist you with scheduling an appointment with your primary care office. Can I set that up for you? No Follow up needed:No If the patient asks what a Medicare Wellness visit is: The Medicare wellness visit isn't an exam. It is a great way to get up-to-date with your provider'scare team. The purpose of the Annual Wellness Visit under Medicare is to paint a picture of your current stateof health and to create a baseline for future care. Any additional test or labs that may be required as a result of the findings of your annual wellness visit would be billed separately by your doctor and would fall under a different benefit than yourannual wellness visit. Medicare also covers a number of other preventative services at no cost such as preventative cancerscreenings, bone density measurement, and flu shots. Your visit may include: A review of your medical and family history. A review of your current providers and prescriptions. Height, weight, blood pressure, and other routine measurements. Personalized health advice. A list of risk factors and treatment options for you. A screening schedule (like a checklist) for appropriate preventive services. Saida Burk April 15, 2024 8:12 AM [facility] Telephone encounter Note * Telephone Encounter - Verna Kagn - 08/28/2023 2:24 PM EDT Called patient to see dates/times/location work best for her for ct scan. Left message to call office. [facility] [id number] Miscellaneous Notes* Telephone Encounter - Verna Kang - 08/28/2023 2:24 PM EDT Called patient to see dates/times/location work best for her for ct scan. Left message to call office. documented in this encounterSM[facility] [id number] History of Present illness Narrative* Tyler Banerjee MD - 08/27/2023 11:40 AM EDT Chief Complaint Patient presents with Other History [...] lymphedema. She has been seen in the lymphedemaclinic and wears support stockings. In January 2017 she reported new onset of vaginal bleeding and back pain. CT abdomen and pelvis IMPRESSION: 1. No evidence of recurrent malignancy. 2. Stable hepatic cysts. 3. Moderate-sized hiatal hernia. CXR [facility] in 2020- That showed a pulmonary nodule. On 08/23/21 CT of chest showed: IMPRESSION: 1. Pulmonary nodule in the inferolateral aspect of the left upper lobe has demonstrated interval increase in size compared to 2014. Based on the 202 ACR white paper [...] of breath. Denies abdominal pain, nausea, vomiting, changesin weight. Denies pelvic pain, vaginal bleeding, vaginal discharge. She has not been using her vaginal dilator as often. Does have some vaginal dryness. No vaginal bleeding after dilator or intercourse. Now she has 4 grandchildren! Shine does watch once of her grandsons in [employer]. Retired. Doing well! Past Medical History: Diagnosis Date Acid reflux disease with ulcer Anemia Arthritis Cervical cancer (CMS/HCC) (HCC) 2013 H/O: hysterectomy Hiatal hernia HTN (hypertension) Hypothyroid Lymphedema Personal history of irradiation Past Surgical History: Procedure Laterality Date SECTION, LOW TRANSVERSE x2 DILATION AND CURETTAGE OF UTERUS 1985 OOPHORECTOMY Bilateral 2014 TONSILLECTOMY (HISTORICAL) child dutta TOTAL ABDOMINAL HYSTERECTOMY N/A 2014 robotic radical hysterectomy Social History Tobacco Use [...] recurrent disease. ECOG performance status of 0. Papsmear obtained, follow up on results and treat [...] recognition. I apologize for minor errors in event marketing coordinator which may be present. documented in this [facility]01-03-2023 NotePatient Outreach (PULMWH) SHINE MIN ([id number]) 1950 F Date Time Provider Department 11/18/22 NOHEMI MARTINEZ PULKathie During your visit today, we recorded the following information about you: Nohemi Martinez APRN.CNP 11/18/2022 11:13 AM Signed Incidental Lung Nodule Enrollment Call attempt: 1st Attempt Enrolled in Lung Nodule program: No Declined reason: Patient already followed by another non-[facility] provider for incidental lung nodule(s). Lung Nodule Program Location: [facility]. Nohemi Martinez NP Allergies As of Date: 11/18/2022 Noted Allergy Reaction PENICILLINS 06/08/2018 16 - Unknown CUBIZUK-TED-NZE REDUCTASE INHIBIT*06/08/2018 16 - Unknown SULFA (SULFONAMIDE ANTIBIOTICS) 06/08/2018 16 - Unknown Date Reviewed: 12/03/2020 Reviewed by: Lissette Dior) CAMERON Bates - Fully Assessed Primary Visit [...] 11/18/2022 Encounter Status:Closed by NOHEMI MARTINEZ on 11/18/22[facility] 11-18-2022 NoteHNO ID: [id number] Author: Nohemi Martinez APRN.[facility] Service: ? Author Type: Nurse Practitioner Type: Progress Notes Filed: 11/18/2022 11:13 AM Note Text: Incidental Lung Nodule Enrollment Call attempt: 1st Attempt Enrolled in Lung Nodule program: No Declined reason: Patient already followed by another non-[facility] provider for incidental lung nodule(s). Lung Nodule Program Location: [facility]. Nohemi Martinez [facility]01-03-2023 History of Present illness Narrative* Nohemi Martinez APRN.CNP - 11/18/2022 11:10 AM EST Incidental Lung Nodule Enrollment Call attempt: 1st Attempt Enrolled in Lung Nodule program: No Declined reason: Patient already followed by another non-[facility] provider for incidental lung nodule(s). Lung Nodule Program Location: [facility]. Nohemi Martinez NP [facility] Diagnosis Nodule of lower lobe of left lung Pulmonary nodule 1 cm or greater in diameter Malignant neoplasm of overlapping sites of cervix (HCC) documented in this encounter [facility] [employer] Phone: Evaluation note* Diagnosis Lung nodules- Primary Other nonspecific abnormal finding of lung field documented in this encounter [facility] note* Diagnosis Onset Date Resolution Status Bronchitis acute Right acute otitis media acu te Anemia acute High triglycerides acute SOB (shortness of breath) ac [place] Hypertension [facility] Work Phone: Evaluation note* Diagnosis Onset Date Resolution Status Hypothyroid acute Bronchitis acute Hypothyroid acute SOB (shortness of breath) ac [place] Hypothyroid acute Work Phone: Evaluation note* Diagnosis Encounter for screening mammogram for malignant neoplasm of breast documented in this encounter [facility] note* Diagnosis Encounter for screening mammogram for malignant neoplasm of breast- Primary Encounter for screening mammogram for malignant neoplasm of breast documented in this encounter [facility] note* Diagnosis History of cervical cancer- Primary Personal history of malignant neoplasm of cervix uteri S/P radiation therapy Convalescence following radiotherapy Lung nodule Other diseases of lung, not elsewhere classified Nicotine dependence, cigarettes, in remission documented in this encounter [facility] note* Diagnosis History of cervical cancer Personal history of malignant neoplasm of cervix uteri Lung nodule Other diseases of lung, not elsewhere classified Nicotine dependence, cigarettes, in remission documented in this encounter [facility] note* Diagnosis Onset Date Resolution Status Bronchitis acute Maxillary sinusitis acute Right acute otitis media acu te Bronchitis acute Maxillary sinusitis acute Right acute otitis media acu te Anemia acute GERD (gastroesophageal reflux disease) acute Hypercholesteremia acute Hypothyroid acute Hypertension [facility] Work Phone: Evaluation note* Diagnosis Encounter for screening mammogram for malignant neoplasm of breast documented in this encounter [facility] note* Diagnosis Encounter for screening mammogram for malignant neoplasm of breast- Primary Encounter for screening mammogram for malignant neoplasm of breast documented in this encounter [facility] note* Diagnosis Malignant neoplasm of cervix, unspecified site (HCC)- Primary documented in this encounter [facility] note* Diagnosis Encounter for screening mammogram for malignant neoplasm of breast documented in this encounter [facility] note* Diagnosis Encounter for screening mammogram for malignant neoplasm of breast- Primary Encounter for screening mammogram for malignant neoplasm of breast documented in this encounter [facility] for referral (narrative)No reason for referral information availableWMadison Health Work Phone: Summary Purpose Family History No Family History Records FoundNo Family History Records FoundNo Family History Records FoundNo Family History Records FoundNo Family History Records FoundNo Family History Records Found Advance Directives Documents on File Type Date Recorded Patient Tracer Lathe Set Up Operator Expl anation Advance Directives and Living Will Power of Vp Platforms Documents on File Type Date Recorded Patient Tracer Lathe Set Up Operator Expl anation ACP-Advance Directive ACP-Power of Vp Platforms Documents on File Type Date Recorded Patient Tracer Lathe Set Up Operator Expl anation Advance Directives and Livin g Will 05/22/2023 11:32 AM Documents on File Type Date Recorded Patient Tracer Lathe Set Up Operator Expl anation Advance Directives and Livin g Will 05/22/2023 11:32 AM Hospital Course Note HNO ID: [id number] Author: Nemesio Crum V Service: General Internal Medicine Author Type: Physician Type: Discharge Summary Filed: 12/03/2020 9:52 PM Note Text: DISCHARGE SUMMARY PATIENT NAME: Shine Min Admission Information Admission Information ADMIT DATE: 11/30/2020 DISCHARGE DATE: 12/03/2020 MY DOCTORS AND MEDICAL TEAM: My Main Hospital Doctor: Bebeto Crum Primary Care Provider: Skinny London NP My Medical Team Members: Treatment Team: Attending Provider: Bebeto Crum Consulting: Sebastian Matos MY CONDITION AT DISCHARGE: Stable REASON I WAS IN THE HOSPITAL: Normal patient of RENÉE London. She has history of cervical cancer and [...] (more content not included)... Note HNO ID: [id number] Author: Maria A Matos Service: ? Author Type: Physician Type: Brief Op Note Filed: 12/03/2020 10:14 AM Note Text: BRIEF OPERATIVE / PROCEDURE NOTE LOG ID: [id number] SURGERY/PROCEDURE DATE: 12/03/2020 INCISION/PROCEDURE START TIME: 9:57 AM INCISION CLOSE/PROCEDURE END TIME: 10:07 AM SURGEON(S)/PROCEDURALIST(S) AND NEIGHBORHOOD CONSERVATION OFFICER(S): Surgeon(s) and Role: * Sebastian Matos - Salma No Additional Staff SURGERY/PROCEDURE(S): egd w bx [...] 03, 2020 TIME: 10:09 AM PAGER/CONTACT #: [phone] Procedure Findings Note HNO ID: [id number] Author: Maria A Matos Service: ? Author Type: Physician Type: Brief Op Note Filed: 12/03/2020 10:14 AM Note Text: BRIEF OPERATIVE / PROCEDURE NOTE LOG ID: [id number] SURGERY/PROCEDURE DATE: 12/03/2020 INCISION/PROCEDURE START TIME: 9:57 AM INCISION CLOSE/PROCEDURE END TIME: 10:07 AM SURGEON(S)/PROCEDURALIST(S) AND NEIGHBORHOOD CONSERVATION OFFICER(S): Surgeon(s) and Role: * Sebastian Marsh No [...] 03, 2020 TIME: 10:09 AM PAGER/CONTACT #: [phone] Reason for Referral Specialty Diagnoses / Procedures Referred By Contac t Referred To Contact Radiology Diagnoses Nodule of lower lobe of left lung Pulmonary nodule 1 cm or greater in diameter Malignant neoplasm of overlapping sites of cervix (HCC) Procedures CT CHEST LOW DOSE (LDCT) Malissa Prabhakar APRN - CNP [address] [place] [address] Referral ID Status Reason Start Date Expiration Date V isits Requested Visits Authorized [id number] Authorized 07/18/2022 07/18/2023 1 1 Specialty Diagnoses / Procedures Referred By Contsocrates t Referred To Contact Radiology Diagnoses History of cervical cancer Lung nodule Nicotine dependence, cigarettes, in remission Procedures CT lung screening low dose Tyler Banerjee MD [address] [place] [address] Referral ID Status Reason Start Date Expiration Date V isits Requested Visits Authorized [id number] Pending Review 08/27/2023 02/23/2024 1 1 Referral ID Status Reason Start Date Expiration Date Visits Re quested Visits Authorized [id number] Closed 08/27/2023 02/23/2024 1 1 Chief Complaint and Reason for Visit Chief Complaint Sinus cough & conges tion medication refills Reason for Visit Bronchitis Right acute otitis media Anemia High triglycerides SOB (shortness of breath) Hypertension Chief Complaint lab to be drawn(TSH) Sinus congestion cough & lab(TSH) Lab draw(TSH) Reason for Visit Hypothyroid Bronchitis Hypothyroid SOB (shortness of breath) Hypothyroid Chief Complaint Sinus infection & CO UGH L)side of throat swollen gland medication refills Reason for Visit Bronchitis Maxillary sinusitis Right acute otitis media Bronchitis Maxillary sinusitis Right acute otitis media Anemia GERD (gastroesophageal reflux disease) Hypercholesteremia Hypothyroid Hypertension Chief Complaint Admit Date Sore throat/lab March 28, 2025 4:39p m Reason for Visit Admit Date Hypothyroid March 28, 2025 4:39p m Maxillary sinusitis March 28, 2025 4:39p m Additional Source Comments INFORMATION SOURCE (unrecogn ized section and content) DATE CREATED AUTHOR 06/09/2018 [facility] DATE CREATED AUTHOR AUTHOR'S ORGANIZ ATION 02/23/2021 [facility] DATE CREATED AUTHOR AUTHOR'S ORGANIZ ATION 07/28/2022 [facility] DATE CREATED AUTHOR AUTHOR'S ORGANIZ ATION 11/18/2022 [facility] DATE CREATED AUTHOR AUTHOR'S ORGANIZ ATION 07/14/2025 [facility] DATE CREATED AUTHOR AUTHOR'S ORGANIZ ATION 08/27/2025 [facility] Care Teams (unrecognized sec tion and content) Nailer Hand Relationship Specialty Start Date End Date Skinny London [address] [place], [place] [id number] PCP - General 05/23/15 Nailer Hand Relationship Specialty Start Date End Date Skinny London [address] [place], [place] [id number] PCP - General 05/23/15 Nailer Hand Relationship Specialty Start Date End Date Skinny London, VENEER MARKER[employer] [address] [id number] PCP - General Family Medicine 06/08/18 Laurel Mora [address] [place] [address] Internal Medicine 06/08/18 Team Status: Inactive Member Role Status Dates Skinny London CONFIGURATOR, CONFIGURATOR-C Attending Provider Active Team Status: Inactive Member Role Status Dates Skinny London CONFIGURATOR, CONFIGURATOR-C Attending Provider, Referring Provider Active Nailer Hand Relationship Specialty Start Date End Date Skinny London [address] [place], [place] [phone] PCP - General 05/23/15 Tyler Banerjee MD [address] [facility] [place], [place] [id number] Consulting Physician Gynecologic Oncology 04/20/23 Nailer Hand Relationship Specialty Start Date End Date Skinny London [address] [place] [address] PCP - General 05/23/15 Tyler Banerjee MD [address] [facility] [place], [place] [id number] Consulting Physician Gynecologic Oncology 04/20/23 Nailer Hand Relationship Specialty Start Date End Date Skinny London [address] [place] [address] PCP - General 05/23/15 Tyler Banerjee MD [address] [facility] [address] [place], [place] [id number] Consulting Physician Gynecologic Oncology 04/20/23 Nailer Hand Relationship Specialty Start Date End Date Skinny London [address] [place] [address] PCP - General 05/23/15 Tyler Banerjee MD [address] [facility] [address] [place], [place] [id number] Consulting Physician Gynecologic Oncology 04/20/23 Nailer Hand Relationship Specialty Start Date End Date Skinny London [address] [place] [address] PCP - General 05/23/15 Tyler Banerjee MD [address] [place] [address] Consulting Physician Gynecologic Oncology 04/20/23 Nailer Hand Relationship Specialty Start Date End Date Skinny London Jase, [employer] [address] [facility] [address] [place], [place] [phone] PCP - General Family Medicine 06/08/18 Laurel Mora [address] [place] [address] Internal Medicine 06/08/18 Nailer Hand Relationship Specialty Start Date End Date London, Skinny [address] [place] [address] PCP - General 05/23/15 Tyler Banerjee MD [address] [place] [address] Consulting Physician Gynecologic Oncology 04/20/23 Nailer Hand Relationship Specialty Start Date End Date London, Dora [address] [place] [address] PCP - General 05/23/15 Tyler Banerjee MD [address] [place] [address] Consulting Physician Gynecologic Oncology 04/20/23 Nailer Hand Relationship Specialty Start Date End Date London Skinny [address] [place] [address] PCP - General 05/23/15 Tyler Banerjee MD [address] [place] [address] Consulting Physician Gynecologic Oncology 04/20/23 Fariha Anders APRN - [facility] [address] [place] [address] Nurse Practitioner Nurse Practitioner 09/08/24 Nailer Hand Relationship Specialty Start Date End Date Skinny London [address] [place], [place] [id number] PCP - General 05/23/15 Tyler Banerjee MD [address] [place], [place] [phone] Consulting Physician Gynecologic Oncology 04/20/23 Fariha Anders APRN - [facility] [address] [facility] [address] [place] [address] Nurse Practitioner Nurse Practitioner 09/08/24 Team Status: Active Member Role Status Dates Skinny London CONFIGURATOR, CONFIGURATOR-C Primary Care Provider Active Team Status: Inactive Member Role Status Dates Skinny London CONFIGURATOR, CONFIGURATOR-C Primary Care Provider Active Start: March 28, 2025 End: March 28, 2025 Skinny London CONFIGURATOR, CONFIGURATOR-C Attending Provider Active Start: March 28, 2025 End: March 28, 2025 Skinny London CONFIGURATOR, CONFIGURATOR-C Referring Provider Active Start: March 28, 2025 End: March 28, 2025 Nailer Hand Relationship Specialty Start Date End Date Skinny London [address] [place] [address] PCP - General 05/23/15 Tyler Banerjee MD [address] [place], [place] [id number] Consulting Physician Gynecologic Oncology 04/20/23 Fariha Anders APRN - [facility] [address] [place] [address] Nurse Practitioner Nurse Practitioner 09/08/24 Nailer Hand Relationship Specialty Start Date End Date Skinny London [address] [place], [place] [address] PCP - General 05/23/15 Tyler Banerjee MD [address] [place] [address] Consulting Physician Gynecologic Oncology 04/20/23 Fariha Anders APRN - [facility] [address] [place] [address] Nurse Practitioner Nurse Practitioner 09/08/24 Nailer Hand Relationship Specialty Start Date End Date Skinny London [address] [place], [place] [address] PCP - General 05/23/15 Tyler Banerjee MD [address] [place] [address] Consulting Physician Gynecologic Oncology 04/20/23 Fariha Anders APRN - [facility] [address] [place] [address] Nurse Practitioner Nurse Practitioner 09/08/24 Source Comments (unrecognize d section and content) In the event this informatio n is protected by the Federal Confidentiality of Alcohol and Drug Abuse Patient Records regulations: The Federal rules restrict any use of the information to criminally investigate or prosecute any alcohol or drug abuse patient.[facility] the event this information is protected by the Federal Confidentiality of Alcohol and Drug Abuse Patient Records regulations: The Federal rules restrict any use of the information to criminally investigate or prosecute any alcohol or drug abuse patient.[facility] Goals (unrecognized section and content) Goals may be documented in a n alternate sectionGoals may be documented in an alternate sectionGoals may be documented in an alternate sectionGoals may be documented in an alternate section Reason for Visit (unrecogniz ed section and content) Reason Comments Other History of cervical cancer - annual examination Specialty Diagnoses / Procedures Referred By Contac t Referred To Contact Radiology Diagnoses History of cervical cancer Lung nodule Nicotine dependence, cigarettes, in remission Procedures CT lung screening low dose Tyler Banerjee MD [address] [address] Referral ID Status Reason Start Date Expiration Date Visits Re quested Visits Authorized [id number] Closed 08/27/2023 02/23/2024 1 1 Reason Comments Appointment Reason Comments Follow-up FOR RECORDS PERTAINING TO PATIENTS WHO ARE [...] BE BASED ON THE PRIMARY CLINICAL RECORDS. [employer] [facility]. provides no warranty or guarantee of the accuracy or completeness of information in this document.
[2025-10-04 21:33] LABS: Hematocrit 40.6 % (37-47); Hemoglobin 13.2 g/dL (12.0-15.0); Immature Granulocytes Count 0.010 X10^3/uL (0.0-0.0); Mean Corp Hgb Conc 32.5 g/dL (32-36); Mean Corpuscular Volume 94.9 fL (81-99); Mean Platelet Vol. 9.5 fl (6.2-12.0); NRBC Flagged by Analyzer 0 % (0-5); Platelet Count 299 K/mm3 (150-450); RBC Distribution Width CV 12.2 % (11.6-14.6); RBC Distribution Width SD 42.5 fl (35.1-43.9); Red Blood Count 4.28 M/mm3 (4.2-5.4); White Blood Count 6.0 K/mm3 (4.4-11.0)
[2025-10-04 21:59] LABS: AST(SGOT) 25 U/L (<=31); Alanine Aminotransfer ALT/SGPT 28 U/L (<=34); Albumin, Serum 4.5 g/dL (3.4-4.8); Alkaline Phosphatase 60 U/L (35-104); Anion Gap 8 (5-15); BUN 14 mg/dL (4-19); BUN/Creat Ratio 13.9 RATIO (10-20); Calcium,Total 9.3 mg/dL (7.6-11.0); Carbon Dioxide 27.2 mmol/L (21.0-32.0); Chloride 107 mmol/L (98-108); Cholesterol 147 mg/dL (<=200); Globulin 2.6 g/dL (2.2-4.2); Glucose 96 mg/dL (70-99); Low Density Lipoprotein Calc. 59 mg/dL; Potassium 4.4 mmol/L (3.3-5.1); Triglycerides 127 mg/dL; Very Low Density Lipoprotein 25 mg/dL (5-40); cholesterol:hdl ratio screen 2.22
== END | disposition home or self-care (01) ==
PROVIDERS: PCP Nurse Practitioner; Visit Provider Nurse Practitioner
DX: I10 Essential (primary) hypertension (principal); E80.0 Hereditary erythropoietic porphyria; D50.0 Iron deficiency anemia secondary to blood loss (chronic); E78.1 Pure hyperglyceridemia; K21.00 Gastro-esophageal reflux disease with esophagitis, without bleeding; E78.00 Pure hypercholesterolemia, unspecified; E03.9 Hypothyroidism, unspecified
CPT/HCPCS: 80053; 80061; 84443; 85025